=== PATIENT | female | born 1990 | race Caucasian/White ===

== ENCOUNTER → 2016-09-15 | Outpatient (CLI) | payer BC, SELFPAY ==
--- NOTE | 2016-09-15 12:44 | REP ---
FIRST TRIMESTER ULTRASOUND: Real-time sonographic evaluation of the gravid uterus performed utilizing transabdominal and endovaginal technique. There is a single living intrauterine gestation with an estimated gestational age of 6 weeks 2 days based on crown rump length of 5 mm, EDC 05/09/2017. heart rate 103 beats per minute. There is no subchorionic hemorrhage. Cystic structure of the right ovary probably represents a corpus luteum. This measures approximately 1.7 x 2.1 x 2.2 cm. There is blood flow seen in each ovary with duplex Doppler evaluation, with no torsion. Signed by Norm Turk MD 09/15/2016 05:00 P
== END ==
LOC: M RAD 11:32
PROVIDERS: ATTEND Nurse Practitioner Adult Health
DX: Z36 Encounter for antenatal screening of mother (principal)

== ENCOUNTER 2017-03-05 23:02 | Emergency (ER) | payer BC ==
[~2017-03-05] VITALS: Ht 157.5 cm; Wt 64.5 kg
[2017-03-05 23:02] VITALS: BP 139/75
[2017-03-05] MEDS ORDERED: MICR1TAB11 PO (23:10)
== END 2017-03-06 00:13 | disposition left against medical advice (07) ==
LOC: M ED 23:02
DX: R10.9 Unspecified abdominal pain (principal); Z53.21 Procedure and treatment not carried out due to patient leaving prior to being seen by health care provider

== ENCOUNTER → 2017-11-01 | Outpatient (CLI) | payer BC | LOC: M LAB 19:54 | DX: A08.4 Viral intestinal infection, unspecified (principal) ==

== ENCOUNTER → 2017-11-02 | Outpatient (REF) | payer BC | LOC: M LAB REF 08:00 | DX: R10.84 Generalized abdominal pain (principal) | CPT/HCPCS: 87086 ==

== ENCOUNTER → 2018-03-21 | Outpatient (CLI) | payer BC | LOC: M OUTALCOH 08:39 | DX: F10.10 Alcohol abuse, uncomplicated (principal) ==

== ENCOUNTER 2018-03-28 16:00 | Outpatient (RCR) | payer BC | END 2018-04-07 | LOC: M OUTALCOH 16:00 | DX: F10.10 Alcohol abuse, uncomplicated (principal) ==

== ENCOUNTER 2018-04-11 10:00 | Outpatient (RCR) | payer BC | END 2018-05-08 | LOC: M OUTALCOH 04-18 10:00 | DX: F10.10 Alcohol abuse, uncomplicated (principal) ==

== ENCOUNTER 2018-05-16 13:06 | Outpatient (RCR) | payer BC | END 2018-06-07 | LOC: M OUTALCOH 05-23 10:00 | DX: F10.10 Alcohol abuse, uncomplicated (principal) ==

== ENCOUNTER → 2018-07-24 | Outpatient (CLI) | payer BC ==
[~2018-07-24] MED LIST: MICR1TAB11 PO
== END ==
LOC: M OUTALCOH 08:27
PROVIDERS: ATTEND Psychiatry & Neurology Psychiatry
DX: F10.10 Alcohol abuse, uncomplicated (principal)

== ENCOUNTER → 2018-08-08 | Outpatient (RCR) | payer BC | LOC: M OUTALCOH 15:00 | PROVIDERS: ATTEND Psychiatry & Neurology Psychiatry | DX: F10.10 Alcohol abuse, uncomplicated (principal) ==

== ENCOUNTER 2018-09-04 12:54 | Outpatient (RCR) | payer BC | END 2018-09-05 | LOC: M OUTALCOH 12:54 | PROVIDERS: ATTEND Psychiatry & Neurology Psychiatry | DX: F10.10 Alcohol abuse, uncomplicated (principal) ==

== ENCOUNTER 2018-10-02 09:00 | Outpatient (RCR) | payer BC ==
[2018-10-09] MEDS ORDERED: NAPR-50 PO (08:21)
== END 2018-10-06 ==
LOC: M OUTALCOH 09:00
PROVIDERS: ATTEND Psychiatry & Neurology Psychiatry
DX: F10.10 Alcohol abuse, uncomplicated (principal)

== ENCOUNTER 2018-10-09 01:49 | Emergency (ER) | payer BC ==
[~2018-10-09] VITALS: Ht 157.5 cm; Wt 67.3 kg
[2018-10-09] MEDS ORDERED: PAXI10TA12 PO (01:57)
[2018-10-09] MEDS ORDERED: CEFD1CAP8 PO (01:57)
[2018-10-09] MEDS ORDERED: ACETAMINOPHEN TAB 650MG DOSE (2X325MG) PO ONE ×2 (02:00→07:45)
[2018-10-09 02:55] LABS: INFLUENZA A AMPLIFICATION NEGATIVE (NEGATIVE); INFLUENZA B AMPLIFICATION NEGATIVE (NEGATIVE)
[2018-10-09] MEDS ORDERED: NS 1,000 ML IV ONE ×2 (05:15→07:45)
[2018-10-09 06:18] LABS: BASO % 0.2 % (0.0-1.0); EOS % 0.1 % (0.0-3.0); HEMATOCRIT 38.5 % (36.0-47.0); HEMOGLOBIN 13.2 g/dl (12.0-15.5); LYMPH # 0.8 10^3/uL (1.5-4.5); LYMPH % 4.9 % (24.0-44.0); MEAN CORPUSCULAR HEMOGLOBIN 29.7 pg (27.0-33.0); MEAN CORPUSCULAR HGB CONC 34.3 g/dl (32.0-36.5); MEAN CORPUSCULAR VOLUME 86.7 fl (80.0-96.0); MONO # 0.5 10^3/uL (0.0-0.8); NEUTROPHILS # 14.8 10^3/uL (1.8-7.7); NEUTROPHILS % 91.1 % (36.0-66.0); PLATELET COUNT, AUTOMATED 191 10^3/uL (150-450); RED BLOOD COUNT 4.44 10^6/uL (4.00-5.40); WHITE BLOOD COUNT 16.2 10^3/uL (4.0-10.0)
[2018-10-09 06:42] LABS: ALBUMIN 3.9 GM/DL (3.2-5.2); ALT/SGPT 22 U/L (12-78); BILIRUBIN,DIRECT 0.1 MG/DL (0.0-0.2); BILIRUBIN,TOTAL 0.5 MG/DL (0.2-1.0); BLOOD UREA NITROGEN 10 MG/DL (7-18); CALCIUM LEVEL 8.4 MG/DL (8.5-10.1); CARBON DIOXIDE LEVEL 21 MEQ/L (21-32); CHLORIDE LEVEL 107 MEQ/L (98-107); CREATININE FOR GFR 0.92 MG/DL (0.55-1.30); GLOMERULAR FILTRATION RATE > 60.0 (>60); GLUCOSE, FASTING 99 MG/DL (70-100); HCG, SERUM QUALITATIVE NEGATIVE (NEGATIVE); LIPASE 102 U/L (73-393); MONO REFLEX EBV COMP NEGATIVE (NEGATIVE); POTASSIUM SERUM 3.6 MEQ/L (3.5-5.1); SODIUM LEVEL 137 MEQ/L (136-145)
[2018-10-09] MEDS ORDERED: ONDANSETRON 4MG/2ML VIAL (J2405) IV ONE (07:15)
[2018-10-09] MEDS ORDERED: KETOROLAC 30 MG/ML VIAL (J1885) IV ONE (07:15)
--- NOTE | 2018-10-09 07:53 | REP ---
Acute abdominal series: Three views. History: Constipation. Abdomen pain. Chills. Comparison chest x-ray: August 04, 2012. Findings: Upright chest radiograph is normal. There is no evidence of infiltrate or free subdiaphragmatic air. Heart is not enlarged. Pulmonary vasculature is not increased. Supine erect views of the abdomen show a normal bowel gas pattern. Psoas margins and flank stripes are intact. No mass, organomegaly, or pathologic calcification is seen. Impression: Negative abdominal series. Electronically Signed by Joni Keene MD 10/09/2018 07:45 A
[2018-10-09] MEDS ORDERED: ONDA4TAB6 PO (08:21)
[2018-10-09] MEDS ORDERED: NAPR-837 PO (08:21)
[2018-10-09] MEDS ORDERED: MIRA3350 PO (08:23)
[2018-10-09 08:33] VITALS: BP 99/55
[2018-10-11 00:07] LABS: EBV VIRAL CAPSID AG IgG >600.0 U/mL (0.0-17.9); EBV VIRAL CAPSID AG IgM <36.0 U/mL (0.0-35.9); Lyme Disease IgG/IgM Antibodie <0.91 ISR (0.00-0.90); Lyme Disease IgM Ab Quantitati <0.80 index (0.00-0.79)
== END 2018-10-09 08:46 | disposition home or self-care (01) ==
LOC: M ED 01:49
DX: B34.9 Viral infection, unspecified (principal); M79.10 Myalgia, unspecified site; K59.00 Constipation, unspecified; F41.9 Anxiety disorder, unspecified; Z79.899 Other long term (current) drug therapy; Z79.3 Long term (current) use of hormonal contraceptives
CPT/HCPCS: 74021; 80048; 80076; 82550; 83605; 83690; 84703; 85025; 86308; 86617; 86663; 86664; 86665; 87502; 96374; 96375; 99284; J1885; J2405

== ENCOUNTER 2018-10-23 09:30 | Outpatient (RCR) | payer BC ==
[~2018-10-23 09:30] MED LIST changes: +CEFD1CAP8 PO; +MIRA3350 PO; +NAPR-837 PO; +ONDA4TAB6 PO; +PAXI10TA12 PO
== END 2018-11-05 ==
LOC: M OUTALCOH 09:30
PROVIDERS: ATTEND Psychiatry & Neurology Psychiatry
DX: F10.10 Alcohol abuse, uncomplicated (principal)

== ENCOUNTER → 2019-01-13 | Outpatient (CLI) | payer BC ==
[2019-01-13 13:43] LABS: BASO % 0.3 % (0.0-1.0); EOS # 0.1 10^3/uL (0.0-0.50); EOS % 1.2 % (0.0-3.0); HEMATOCRIT 42.6 % (36.0-47.0); HEMOGLOBIN 14.1 g/dl (12.0-15.5); LYMPH # 1.7 10^3/uL (1.5-4.5); LYMPH % 27.9 % (24.0-44.0); MEAN CORPUSCULAR HEMOGLOBIN 30.4 pg (27.0-33.0); MEAN CORPUSCULAR HGB CONC 33.1 g/dl (32.0-36.5); MEAN CORPUSCULAR VOLUME 91.8 fl (80.0-96.0); MONO # 0.6 10^3/uL (0.0-0.8); NEUTROPHILS # 3.6 10^3/uL (1.8-7.7); NEUTROPHILS % 60.3 % (36.0-66.0); PLATELET COUNT, AUTOMATED 242 10^3/uL (150-450); RED BLOOD COUNT 4.64 10^6/uL (4.00-5.40); WHITE BLOOD COUNT 5.9 10^3/uL (4.0-10.0)
[2019-01-13 14:02] LABS: ALBUMIN 3.9 GM/DL (3.2-5.2); ALT/SGPT 32 U/L (12-78); BLOOD UREA NITROGEN 9 MG/DL (7-18); CARBON DIOXIDE LEVEL 23 MEQ/L (21-32); CHLORIDE LEVEL 107 MEQ/L (98-107); CREATININE FOR GFR 0.92 MG/DL (0.55-1.30); FREE T4 1.06 NG/DL (0.76-1.46); GLOMERULAR FILTRATION RATE > 60.0 (>60); GLUCOSE, FASTING 95 MG/DL (70-100); HCG, SERUM QUANTITATIVE < 1.0 MIU/ML; POTASSIUM SERUM 4.8 MEQ/L (3.5-5.1); SODIUM LEVEL 138 MEQ/L (136-145); THYROID STIMULATING HORMONE 0.764 uIU/ML (0.358-3.740); TOTAL PROTEIN 7.6 GM/DL (6.4-8.2)
== END ==
LOC: M WUC 12:23
PROVIDERS: ATTEND Physician Assistant
DX: N94.6 Dysmenorrhea, unspecified (principal)

== ENCOUNTER → 2019-01-13 | Outpatient (REF) | payer BC ==
[2019-01-13 15:35] LABS: CHLAMYDIA DNA AMPLIFICATION NEGATIVE (NEGATIVE); GC DNA AMPLIFICATION NEGATIVE (NEGATIVE)
== END ==
LOC: M LAB REF 13:21
PROVIDERS: ATTEND Physician Assistant
DX: N94.6 Dysmenorrhea, unspecified (principal)

== ENCOUNTER → 2019-03-28 | Outpatient (REF) | payer BC ==
[2019-04-04 00:08] LABS: HPV HYBRID CAPTURE II Positive (Negative)
== END ==
LOC: M SFHCWAGY 10:16
PROVIDERS: ATTEND Family Medicine
DX: Z12.4 Encounter for screening for malignant neoplasm of cervix (principal); R87.610 Atypical squamous cells of undetermined significance on cytologic smear of cervix (ASC-US)

== ENCOUNTER → 2019-06-02 | Outpatient (REF) | payer BC | LOC: M PLALAB 13:33 | PROVIDERS: ATTEND Nurse Practitioner Women's Health | DX: R87.610 Atypical squamous cells of undetermined significance on cytologic smear of cervix (ASC-US) (principal) ==

== ENCOUNTER → 2019-10-11 | Outpatient (CLI) | payer BC | LOC: M LABSMTC 11:50 | PROVIDERS: ATTEND Family Medicine | DX: Z11.59 Encounter for screening for other viral diseases (principal); Z20.828 Contact with and (suspected) exposure to other viral communicable diseases ==

== ENCOUNTER → 2019-11-07 | Outpatient (CLI) | payer BC | LOC: M LABSMTC 13:13 | PROVIDERS: ATTEND Family Medicine | DX: Z11.59 Encounter for screening for other viral diseases (principal); Z20.828 Contact with and (suspected) exposure to other viral communicable diseases ==

== ENCOUNTER 2019-11-17 00:36 | Emergency (ER) | payer BC ==
[~2019-11-17] VITALS: Ht 157.5 cm; Wt 70.5 kg
[2019-11-17] MEDS ORDERED: MICR1TAB18 (00:44)
[2019-11-17] MEDS ORDERED: ONDANSETRON 4 MG ORAL DISINTEGRATING TAB PO ONE (01:30)
[2019-11-17] MEDS ORDERED: ONDA4TAB6 PO (02:02)
--- NOTE | 2019-11-17 02:30 | REPVR ---
PROCEDURE INFORMATION: Exam: CT Head Without Contrast Exam date and time: 11/17/19 (1:57am) Age: 29 years old Clinical indication: Headache, vomiting, dizziness. Hit head. TECHNIQUE: Imaging protocol: Computed tomography of the head without contrast. Radiation optimization: All CT scans at this facility use at least one of these dose optimization techniques: automated exposure control; mA and/or kV adjustment per patient size (includes targeted exams where dose is matched to clinical indication); or iterative reconstruction. COMPARISON: No relevant prior studies available FINDINGS: Brain: Unremarkable. No hemorrhage. Unremarkable white matter. No mass effect. Ventricles: Normal. No ventriculomegaly. Bones/joints: Unremarkable. No acute fracture. Sinuses: Visualized sinuses are unremarkable. No air-fluid levels. Mastoid air cells: Visualized mastoid air cells are well aerated. Soft tissues: Unremarkable. IMPRESSION: No acute intracranial pathology is appreciated. Electronically signed by: Cookie Serrano On 11/17/2019 02:30:09 AM
[2019-11-17 03:08] VITALS: BP 119/79
== END 2019-11-17 03:10 | disposition home or self-care (01) ==
LOC: M ED 00:36
DX: S06.0X0A Concussion without loss of consciousness, initial encounter (principal); W50.0XXA Accidental hit or strike by another person, initial encounter; Y92.018 Other place in single-family (private) house as the place of occurrence of the external cause; Z79.899 Other long term (current) drug therapy; Z79.3 Long term (current) use of hormonal contraceptives
CPT/HCPCS: 36415; 70450; 84702; 99283; Q0162

== ENCOUNTER → 2020-04-24 | Outpatient (CLI) | payer BC ==
[~2020-04-24] MED LIST changes: +MICR1TAB18
== END ==
LOC: M LABSMTC 11:12
PROVIDERS: ATTEND Pediatrics
DX: Z01.812 Encounter for preprocedural laboratory examination (principal); Z20.828 Contact with and (suspected) exposure to other viral communicable diseases

== ENCOUNTER → 2020-06-15 | Outpatient (CLI) | payer SELFPAY | LOC: EEVIPCON 16:10 → M LABSMTC 16:10 | PROVIDERS: ATTEND Pediatrics | DX: Z11.59 Encounter for screening for other viral diseases (principal) ==

== ENCOUNTER → 2020-07-20 | Outpatient (REF) | payer BC | LOC: M SFHCWAGY 17:19 | PROVIDERS: ATTEND Nurse Practitioner Family | DX: Z12.4 Encounter for screening for malignant neoplasm of cervix (principal) ==

== ENCOUNTER → 2020-07-28 | Outpatient (REF) | payer BC ==
[2020-07-28 18:00] LABS: HEMATOCRIT 41.1 % (36.0-47.0); HEMOGLOBIN 13.5 g/dl (12.0-15.5); MEAN CORPUSCULAR HEMOGLOBIN 29.7 pg (27.0-33.0); MEAN CORPUSCULAR HGB CONC 32.8 g/dl (32.0-36.5); MEAN CORPUSCULAR VOLUME 90.3 fl (80.0-96.0); PLATELET COUNT, AUTOMATED 301 10^3/uL (150-450); RED BLOOD COUNT 4.55 10^6/uL (4.00-5.40); WHITE BLOOD COUNT 7.9 10^3/uL (4.0-10.0)
[2020-07-28 18:37] LABS: ALBUMIN 3.8 GM/DL (3.2-5.2); ALT/SGPT 29 U/L (12-78); BILIRUBIN,TOTAL 0.2 MG/DL (0.2-1.0); BLOOD UREA NITROGEN 10 MG/DL (7-18); CALCIUM LEVEL 8.8 MG/DL (8.5-10.1); CARBON DIOXIDE LEVEL 29 MEQ/L (21-32); CHLORIDE LEVEL 106 MEQ/L (98-107); CREATININE FOR GFR 0.86 MG/DL (0.55-1.30); FREE T4 0.97 NG/DL (0.76-1.46); GLOMERULAR FILTRATION RATE > 60.0 (>60); GLUCOSE, FASTING 77 MG/DL (70-100); POTASSIUM SERUM 4.2 MEQ/L (3.5-5.1); SODIUM LEVEL 137 MEQ/L (136-145); THYROID STIMULATING HORMONE 0.996 uIU/ML (0.358-3.740); TOTAL PROTEIN 7.2 GM/DL (6.4-8.2)
[2020-07-28 19:11] LABS: ERYTHROCYTE SEDIMENTATION RATE 7 mm/hr (0-20)
== END ==
LOC: M SFHCADAM 15:01
PROVIDERS: ATTEND Physician Assistant
DX: R51.9 Headache, unspecified (principal)

== ENCOUNTER → 2020-09-06 | Outpatient (REF) | payer BC | LOC: M SFHCWAGY 13:08 | PROVIDERS: ATTEND Nurse Practitioner Women's Health | DX: R87.810 Cervical 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 (HPV) DNA 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 (principal); R87.610 Atypical squamous cells of undetermined significance on cytologic smear of cervix (ASC-US) ==

== ENCOUNTER → 2020-09-10 | Outpatient (REF) | LOC: M LABSMTC 11:26 | PROVIDERS: ATTEND Pediatrics | DX: Z11.52 Encounter for screening for COVID-19 (principal) ==

== ENCOUNTER → 2020-09-10 | Outpatient (REF) | LOC: M LABSMTC 10:58 | PROVIDERS: ATTEND Pediatrics | DX: Z11.52 Encounter for screening for COVID-19 (principal) ==

== ENCOUNTER → 2020-09-24 | Outpatient (CLI) | payer BC ==
--- NOTE | 2020-09-24 17:58 | REP ---
INDICATION: LOW BACK PAIN. COMPARISON: None. TECHNIQUE: Five views. FINDINGS: Lumbar vertebral body heights are preserved. Alignment is normal. Disc spaces are maintained. Pedicles and posterior elements are intact. There is no evidence of spondylolysis or spondylolisthesis. Facet joints are normally aligned. Sacrum and SI joints are unremarkable. Psoas margins are symmetric. IMPRESSION: Normal lumbar spine series. <Electronically signed by Coleman Keene > 09/24/20 [id number]
== END ==
LOC: M ADAMS 10:55
PROVIDERS: ATTEND Physician Assistant
DX: M54.5 Low back pain (principal)

== ENCOUNTER → 2021-02-12 | Outpatient (REF) | LOC: M LABSMTC 10:35 | PROVIDERS: ATTEND Pediatrics | DX: Z11.52 Encounter for screening for COVID-19 (principal) ==

== ENCOUNTER 2021-06-19 22:36 | Observation (INO) | payer BC, OTHER ==
[~2021-06-19] VITALS: Ht 157.5 cm; Wt 80.8 kg
[~2021-06-19 22:36] MED LIST changes: -MICR1TAB18; +MICR1TAB18 PO
--- OUTSIDE RECORDS SUMMARY | 2021-06-19 22:41 | CCD ---
Author Author [facility] Organization [facility] Address Unknown Phone Unavailable Care Team Providers Care Coding Compliance Auditor Name Role Phone Andra Reilly Unavailable PROBLEMS Type Condition ICD9-CM Code [id number] Code Onset Dates Condition S tatus W/U Status Risk SNOMED Code Notes Problem Breakthrough bleeding on control pills N92.1 Active confirmed 61493480 Problem Other chronic pain G89.29 Active confirmed 8 8790497 Problem Anxiety, generalized F41.1 Active confirmed 11825679 Problem DUB (dysfunctional uterine bleeding) N93.8 Act katie confirmed 24493100 Problem Cervical 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 (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 R87.810 Active confirmed 587654857 Problem Dysplasia of cervix, low grade (RICK 1) N87.0 A ctive confirmed [id number] ALLERGIES No Known Allergies ENCOUNTERS from 1988 to 2021-05-25 Encounter Location Date Provider Diagnosis [address] [place] [address] 15 May, 2021 Andra Reilly Anxiety, generalized F41.1 IMMUNIZATIONS No Information SOCIAL HISTORY Tobacco Use: Social History Observation Description Date Details (start date - stop date) Never Smoker Sex Assigned At : Social History Observation Description Sex Assigned At Male Education: Question Answer Notes Level of Education: College Audit Question Answer Notes Total Score: 2 Interpretation: Alcohol Education Language: Question Answer Notes Languages spoken: Norwegian Scientologist: Question Answer Notes Scientologist 33 None Domestic Violence: Question Answer Notes Status: Single Sexual Hx: Question Answer Notes Had sex in the last 12 months (vaginal, oral, or anal)? Yes LMP: b/s Have you ever had an STD? Yes with Men only Use protection? Yes Chlamydia? Yes How often? Some of the time Drug and Alcohol Question Answer Notes Total Score: 0 Interpretation: No problems reported Alcohol Screening: Question Answer Notes Did you have a drink containing alcohol in the past year? Ye s Points 3 Interpretation Positive How often did you have six or more drinks on one occas ion in the past year? Less than monthly (1 point) How many drinks did you have on a typica l day when you were drinking in the past year? 1 or 2 (0 points) How often did you have a drink containing alcohol in t he past year? Two to four times a month (2 points) Tobacco Use: Question Answer Notes Are you a: never smoker never smoker REASON FOR REFERRAL No Information VITAL SIGNS No information MEDICATIONS Medication SIG (Take, Route, Frequency, Duration) Notes Start Da te End Date Status busPIRone HCl 10 MG 1 tablet Orally Twice a day for 30 days Feb, Active valACYclovir HCl 1 GM 2 tablets Orally BID for 1 day(s) Active Zofran 4 MG 1 tablet Orally every 8 hours as needed for donte sea for 5 days Jul, Active Ketorolac Tromethamine 10 MG 1 tablet with food or mil k as needed Orally every 6 hrs as needed for 2 days Jul, Active Terbinafine HCl 1 % 1 application to affected ar ea Externally Twice a day to rash on shins for 30 days Apr, Active Paxil 20 MG 1 tablet in the morning Orally Once a day for 90 days Feb, Active PARoxetine HCl 10 TAKE 1 TABLET BY MOUTH EVERY MORNING Orally Once a day for 90 day(s) Active Microgestin /20 1-20 MG-MCG 1 tablet Orally Once a da y for continous usage for 90 days Mar, Active Clobetasol Propionate 0.05 % 1 application Externally Twice a day for 10 day(s) Aug, Active PROCEDURES No Information RESULTS No Results REASON FOR VISIT refill MEDICAL (GENERAL) HISTORY Type Description Date Medical History Anxiety Surgical History colposcopy with Mei 06/02/2019 Goals Section No Information Health Concerns No Information MEDICAL EQUIPMENT No Information MENTAL STATUS No Information FUNCTIONAL STATUS No Information ASSESSMENTS Encounter Date Diagnosis Assessment Notes Treatment Notes Treatm ent Clinical Notes May, Anxiety, generalized (ICD-10 - F41.1) PLAN OF TREATMENT Medication Medication Name Sig Start Date Stop Date busPIRone HCl 10 MG 1 tablet Orally Twice a day for 30 days 2020 PARoxetine HCl 10 TAKE 1 TABLET BY MOUTH EVERY MORNING Orally Once a day for 90 day(s) Microgestin 1/20 1-20 MG-MCG 1 tablet Orally Once a da y for continous usage for 90 days Mar, Paxil 20 MG 1 tablet in the morning Orally Once a day for 90 days Feb, Next Appt Details Provider Name:Mei De Andajac, 2021-06-13 04:00:00 PM, [address] [facility], , [place], [address], Insurance Providers Payer Name Payer Address Payer Phone Insured Name Patient Relati onship to Insured Coverage Start Date Coverage End Date SANDRO/Reina BAUM [address] [facility] [address] Lien UREÑA self
--- OUTSIDE RECORDS SUMMARY | 2021-06-19 22:41 | CCD ---
Author Author [facility] Organization [facility] Address Unknown Phone Unavailable Care Team Providers Care Supervisor Photoengraving Name Role Phone Andra Reilly Unavailable PROBLEMS Type Condition ICD9-CM Code [id number] Code Onset Dates Condition S tatus W/U Status Risk SNOMED Code Notes Problem Breakthrough bleeding on control pills N92.1 Active confirmed 92309591 Problem Other chronic pain G89.29 Active confirmed 8 7304869 Problem Anxiety, generalized F41.1 Active confirmed 86528668 Problem DUB (dysfunctional uterine bleeding) N93.8 Act katie confirmed 97744069 Problem Cervical 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 (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 R87.810 Active confirmed 228422262 Problem Dysplasia of cervix, low grade (RICK 1) N87.0 A ctive confirmed 240443648 ALLERGIES No Known Allergies ENCOUNTERS from 1988 to 2021-05-03 Encounter Location Date Provider Diagnosis [address] [place] [address] Apr, Andra Reilly IMMUNIZATIONS No Information SOCIAL HISTORY Tobacco Use: Social History Observation Description Date Details (start date - stop date) Never Smoker Sex Assigned At : Social History Observation Description Sex Assigned At Male Education: Question Answer Notes Level of Education: College Audit Question Answer Notes Total Score: 2 Interpretation: Alcohol Education Language: Question Answer Notes Languages spoken: Nicaraguan Mormonism: Question Answer Notes Mormonism 33 None Domestic Violence: Question Answer Notes [...] Notes Start Da te End Date Status Microgestin 1/20 1-20 MG-MCG 1 tablet Orally Once a da y for continous usage for 90 days Mar, Active valACYclovir HCl 1 GM 2 tablets Orally BID for 1 day(s) Active PARoxetine HCl 10 TAKE 1 TABLET BY MOUTH EVERY MORNING Orally Once a day for 90 day(s) Active busPIRone HCl 10 MG 1 tablet Orally Twice a day for 30 days Feb, Active Terbinafine HCl 1 % 1 application to affected ar ea Externally Twice a day to rash on shins for 30 days Apr, Active Ketorolac Tromethamine 10 MG 1 tablet with food or mil k as needed Orally every 6 hrs as needed for 2 days Jul, Active Paxil 20 MG 1 tablet in the morning Orally Once a day for 90 days Feb, Active Zofran 4 MG 1 tablet Orally every 8 hours as needed for donte sea for 5 days Jul, Active Clobetasol Propionate 0.05 % 1 application Externally Twice a day for 10 day(s) Aug, Active PROCEDURES No Information RESULTS No Results REASON FOR VISIT refill MEDICAL (GENERAL) HISTORY Type Description Date Medical History Anxiety Surgical History colposcopy with Mei 06/02/2019 Goals Section No Information Health Concerns No Information MEDICAL EQUIPMENT No Information MENTAL STATUS No Information FUNCTIONAL STATUS No Information ASSESSMENTS No Information PLAN OF TREATMENT Medication Medication Name Sig Start Date Stop Date Microgestin 1/20 1-20 MG-MCG 1 tablet Orally Once a da y for continous usage for 90 days Mar, Paxil 20 MG 1 tablet in the morning Orally Once a day for 90 days Feb, PARoxetine HCl 10 TAKE 1 TABLET BY MOUTH EVERY MORNING Orally Once a day for 90 day(s) busPIRone HCl 10 MG 1 tablet Orally Twice a day for 30 days 2020 Next Appt Details Provider Name:Mei Mock, 2021-06-13 04:00:00 PM, [address] [facility], , [place], [address], Insurance Providers Payer Name Payer Address Payer Phone Insured Name Patient Relati onship to Insured Coverage Start Date Coverage End Date BC/SARIKA, [employer] [address] [address] iLen WIGGINS self
--- OUTSIDE RECORDS SUMMARY | 2021-06-19 22:41 | CCD ---
Author Author [facility] Organization [facility] Address Unknown Phone Unavailable Care Team Providers Care Case Folder Name Role Phone Andra Reilly Unavailable PROBLEMS Type Condition ICD9-CM Code [id number] Code Onset Dates Condition S tatus W/U Status Risk SNOMED Code Notes Problem Breakthrough bleeding on control pills N92.1 Active confirmed 05322460 Problem Other chronic pain G89.29 Active confirmed 8 6674622 Problem Anxiety, generalized F41.1 Active confirmed 46178259 Problem DUB (dysfunctional uterine bleeding) N93.8 Act katie confirmed 06122937 Problem Cervical 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 (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 R87.810 Active confirmed 427234829 Problem Dysplasia of cervix, low grade (RICK 1) N87.0 A ctive confirmed 518364803 ALLERGIES No Known Allergies ENCOUNTERS from 1988 to 2021-05-03 Encounter Location Date Provider Diagnosis [address] [phone] [place] [address] Apr, Andra Reilly IMMUNIZATIONS No Information SOCIAL HISTORY Tobacco Use: Social History Observation Description Date Details (start date - stop date) Never Smoker Sex Assigned At : Social History Observation Description Sex Assigned At Male Education: Question Answer Notes Level of Education: College Audit Question Answer Notes Total Score: 2 Interpretation: Alcohol Education Language: Question Answer Notes Languages spoken: Uzbek Catholic: Question Answer Notes Catholic 33 None Domestic Violence: Question Answer Notes [...] Information RESULTS No Results REASON FOR VISIT no show MEDICAL (GENERAL) HISTORY Type Description Date Medical [...] Details Provider Name:Mei Mock, 2021-06-13 04:00:00 PM, [address] [place] [address], , [place], [address], Insurance Providers Payer Name Payer Address Payer Phone Insured Name Patient Relati onship to Insured Coverage Start Date Coverage End Date BC/BS, [employer] [address] [address] Lien WIGGINS
--- OUTSIDE RECORDS SUMMARY | 2021-06-19 22:41 | CCD ---
Author Author [facility] Organization [facility] Address Unknown Phone Unavailable Care Team Providers Care Corporate Statistical Financial Analyst Name Role Phone Andra Reilly Unavailable PROBLEMS Type Condition ICD9-CM Code KSR29-NW Code Onset Dates Condition S tatus W/U Status Risk SNOMED Code Notes Problem Breakthrough bleeding on control pills N92.1 Active confirmed 55347038 Problem Other chronic pain G89.29 Active confirmed 8 3796291 Problem Anxiety, generalized F41.1 Active confirmed 39128843 Problem DUB (dysfunctional uterine bleeding) N93.8 Act katie confirmed 48426240 Problem Cervical 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 (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 R87.810 Active confirmed 855232236 Problem Dysplasia of cervix, low grade (RICK 1) N87.0 A ctive confirmed 985931353 ALLERGIES No Known Allergies ENCOUNTERS from 1988 to 2021-03-23 Encounter Location Date Provider Diagnosis [address] [place] [address] Mar, Andra Reilly Anxiety, generalized F41.1 IMMUNIZATIONS No Information SOCIAL HISTORY Tobacco Use: Social History Observation Description Date Details (start date - stop date) Never Smoker Sex Assigned At : Social History Observation Description Sex Assigned At Male Education: Question Answer Notes Level of Education: College Audit Question Answer Notes Total Score: 2 Interpretation: Alcohol Education Language: Question Answer Notes Languages spoken: Chilean Cheondoism: Question Answer Notes Cheondoism 33 None Domestic Violence: Question Answer Notes [...] tablets Orally BID for 1 day(s) Active busPIRone HCl 10 MG 1 tablet Orally Twice a day for 30 days Feb, Active Zofran 4 MG 1 tablet Orally every 8 hours as needed for donte sea for 5 days Jul, Active Terbinafine HCl 1 % [...] Once a day for 90 day(s) Active Clobetasol Propionate 0.05 % 1 application [...] Notes Treatment Notes Treatm ent Clinical Notes Mar, Anxiety, generalized (ICD-10 - F41.1) PLAN OF TREATMENT Medication Medication Name Sig Start Date Stop Date Microgestin 1/20 1-20 MG-MCG 1 tablet Orally Once a da y for continous usage for 90 days Mar, Paxil 20 MG 1 tablet in the morning Orally Once a day for 90 days Feb, busPIRone HCl 10 MG 1 tablet Orally Twice a day for 30 days 2020 PARoxetine HCl 10 TAKE 1 TABLET BY MOUTH EVERY MORNING Orally Once a day for 90 day(s) Insurance Providers Payer Name Payer Address Payer Phone Insured Name Patient Relati onship to Insured Coverage Start Date Coverage End Date SANDRO/SARIKA, Reina [address] [address] Lien WIGGINS self
--- OUTSIDE RECORDS SUMMARY | 2021-06-19 22:41 | CCD ---
Author Author [facility] Organization [facility] Address Unknown Phone Unavailable Care Team Providers Care Vp Product Name Role Phone Andra Reilly Unavailable PROBLEMS Type Condition ICD9-CM Code RPA25-SC Code Onset Dates Condition S tatus W/U Status Risk SNOMED Code Notes Problem Breakthrough bleeding on control pills N92.1 Active confirmed 41418419 Problem Other chronic pain G89.29 Active confirmed 8 0764296 Problem Anxiety, generalized F41.1 Active confirmed 73003653 Problem DUB (dysfunctional uterine bleeding) N93.8 Act katie confirmed 86388130 Problem Cervical 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 (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 R87.810 Active confirmed 255880771 Problem Dysplasia of cervix, low grade (RICK 1) N87.0 A ctive confirmed 937187155 ALLERGIES No Known Allergies ENCOUNTERS from 1988 to 2021-05-03 Encounter Location Date Provider Diagnosis [address] [place] [address] Apr, Andra Reilly IMMUNIZATIONS No Information SOCIAL HISTORY Tobacco Use: Social History Observation Description Date Details (start date - stop date) Never Smoker Sex Assigned At : Social History Observation Description Sex Assigned At Male Education: Question Answer Notes Level of Education: College Audit Question Answer Notes Total Score: 2 Interpretation: Alcohol Education Language: Question Answer Notes Languages spoken: Palauan Christianity: Question Answer Notes Christianity 33 None Domestic Violence: Question Answer Notes [...] Information RESULTS No Results REASON FOR VISIT need apt MEDICAL (GENERAL) HISTORY Type Description Date Medical [...] Orally Once a day for 90 day(s) Next Appt Details Provider Name:Scar Arsalan Silva, 2021-05-03 10:45:00 AM, [address] [facility], , [place], [address], Provider Name:Mei Mock, 2021-06-13 04:00:00 PM, [address] [facility], , [place], [address], Insurance Providers Payer Name Payer Address Payer Phone Insured Name Patient Relati onship to Insured Coverage Start Date Coverage End Date BC/BS, [employer] [address] [id number] Lien UREÑA
--- OUTSIDE RECORDS SUMMARY | 2021-06-19 22:41 | CCD ---
Author Author [facility] Organization [facility] Address Unknown Phone Unavailable Care Team Providers Care In School Suspension Aide Name Role Phone Mi Knowles Unavailable PROBLEMS Type Condition ICD9-CM Code [id number] Code Onset Dates Condition S tatus W/U Status Risk SNOMED Code Notes Problem Breakthrough bleeding on control pills N92.1 Active confirmed 41267755 Problem Other chronic pain G89.29 Active confirmed 8 4507628 Problem Anxiety, generalized F41.1 Active confirmed 99526278 Problem DUB (dysfunctional uterine bleeding) N93.8 Act katie confirmed 60523742 Problem Cervical 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 (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 R87.810 Active confirmed 536447727 Problem Dysplasia of cervix, low grade (RICK 1) N87.0 A ctive confirmed 495527795 ALLERGIES No Known Allergies ENCOUNTERS from 1988 to 2021-06-17 Encounter Location Date Provider Diagnosis [facility] [address] [place] [phone] [place] [address] Jun, Mi Knowles Surveillance for bir th control, oral contraceptives Z30.41 IMMUNIZATIONS No Information SOCIAL HISTORY Tobacco Use: Social History Observation Description Date Details (start date - stop date) Never Smoker Sex Assigned At : Social History Observation Description Sex Assigned At Male Education: Question Answer Notes Level of Education: College Audit Question Answer Notes Total Score: 2 Interpretation: Alcohol Education Language: Question Answer Notes Languages spoken: Spanish Tenriism: Question Answer Notes Tenriism 33 None Domestic Violence: Question Answer Notes [...] on shins for 30 days Apr, Active Microgestin 1/20 1-20 MG-MCG 1 tablet Orally Once a day Jun, Active Zofran 4 MG 1 tablet Orally every 8 hours as needed for donte sea for 5 days Jul, Active Ketorolac Tromethamine 10 MG 1 tablet with food or mil k as needed Orally every 6 hrs as needed for 2 days Jul, Active Clobetasol Propionate 0.05 % 1 application Externally Twice a day for 10 day(s) Aug, Active Paxil 20 MG 1 tablet in the morning Orally Once a day for 90 days Feb, Active PARoxetine HCl 10 TAKE 1 TABLET BY MOUTH EVERY MORNING Orally Once a day for 90 day(s) Active Microgestin 1/20 1-20 MG-MCG 1 tablet Orally Once a da y for continous usage for 90 days Mar, Active valACYclovir HCl 1 GM 2 tablets Orally BID for 1 day(s) Active PROCEDURES No Information RESULTS No Results REASON FOR VISIT BC refill MEDICAL (GENERAL) HISTORY Type Description Date Medical History Anxiety Surgical History colposcopy with Mei 06/02/2019 Goals Section No Information Health Concerns No Information MEDICAL EQUIPMENT No Information MENTAL STATUS No Information FUNCTIONAL STATUS No Information ASSESSMENTS Encounter Date Diagnosis Assessment Notes Treatment Notes Treatm ent Clinical Notes Jun, Surveillance for contr ol, oral contraceptives (ICD-10 - Z30.41) PLAN OF TREATMENT Medication Medication Name Sig [...] Once a day for 90 days Feb, Microgestin 1/20 1-20 MG-MCG 1 tablet Orally Once a day Jun, valACYclovir HCl 1 GM 2 tablets Orally BID for 1 day(s) Next Appt Details Provider Name:Mi Rodolfo Knowles, 2021-07-29 10:00:00 AM, [address] [facility], , [place], [address], Insurance Providers Payer Name Payer Address Payer Phone Insured Name Patient Relati onship to Insured Coverage Start Date Coverage End Date Subscriber Number Group Nu sheila BC/BS, [employer] [address] [address] Lien WIGGINS [facility] [id number]
--- OUTSIDE RECORDS SUMMARY | 2021-06-19 22:41 | CCD ---
Author Author [facility] Organization [facility] Address Unknown Phone Unavailable Care Team Providers Care Painter Maintenance Name Role Phone Melba Andra Unavailable PROBLEMS Type Condition ICD9-CM Code DAD72-UT Code Onset Dates Condition S tatus W/U Status Risk SNOMED Code Notes Problem Breakthrough bleeding on control pills N92.1 Active confirmed 89686187 Problem Other chronic pain G89.29 Active confirmed 8 1717214 Problem Anxiety, generalized F41.1 Active confirmed 12816898 Problem DUB (dysfunctional uterine bleeding) N93.8 Act katie confirmed 19758280 Problem Cervical 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 (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 R87.810 Active confirmed 029822479 Problem Dysplasia of cervix, low grade (RICK 1) N87.0 A ctive confirmed 650863172 ALLERGIES No Known Allergies ENCOUNTERS from 1988 to 2021-06-10 Encounter Location Date Provider Diagnosis [address] [place] [address] Jun, Andra Reilly Herpes labialis B00.1 IMMUNIZATIONS No Information SOCIAL HISTORY Tobacco Use: Social History Observation Description Date Details (start date - stop date) Never Smoker Sex Assigned At : Social History Observation Description Sex Assigned At Male Education: Question Answer Notes Level of Education: College Audit Question Answer Notes Total Score: 2 Interpretation: Alcohol Education Language: Question Answer Notes Languages spoken: Latvian Cheondoism: Question Answer Notes Cheondoism 33 None [...] on shins for 30 days Apr, Active Zofran 4 MG 1 tablet Orally [...] Information RESULTS No Results REASON FOR VISIT Refill MEDICAL (GENERAL) HISTORY Type Description Date Medical History Anxiety Surgical History colposcopy with Mei 06/02/2019 Goals Section No Information Health Concerns No Information MEDICAL EQUIPMENT No Information MENTAL STATUS No Information FUNCTIONAL STATUS No Information ASSESSMENTS Encounter Date Diagnosis Assessment Notes Treatment Notes Treatm ent Clinical Notes Jun, Herpes labialis (ICD-10 - B00.1) PLAN OF TREATMENT Medication Medication Name Sig [...] Once a day for 90 days Feb, valACYclovir HCl 1 GM 2 tablets Orally BID for 1 day(s) Next Appt Details Provider Name:Mi Knowles, 2021-07-29 10:00:00 AM, [address] [facility], , [place], [address], Insurance Providers Payer Name Payer Address Payer Phone Insured Name Patient Relati onship to Insured Coverage Start Date Coverage End Date SNADRO/SARIKA, [employer] [address] [address] Lien WIGGINS self
--- OUTSIDE RECORDS SUMMARY | 2021-06-19 22:41 | CCD ---
Author Author [facility] Organization [facility] Address Unknown Phone Unavailable Care Team Providers Care Roster Clerk Name Role Phone Andra Reilly Unavailable PROBLEMS Type Condition ICD9-CM Code [id number] Code Onset Dates Condition S tatus W/U Status Risk SNOMED Code Notes Problem Breakthrough bleeding on control pills N92.1 Active confirmed 44727561 Problem Other chronic pain G89.29 Active confirmed 8 0826074 Problem Anxiety, generalized F41.1 Active confirmed 80825835 Problem DUB (dysfunctional uterine bleeding) N93.8 Act katie confirmed 78331792 Problem Cervical 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 (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.810 Active confirmed 730641965 Problem Dysplasia of cervix, low grade (RICK 1) N87.0 A ctive confirmed [id number] ALLERGIES No Known Allergies ENCOUNTERS from 1988 to 2021-05-25 Encounter Location Date Provider Diagnosis [address] [place] [address] 15 May, 2021 Andra Reilly IMMUNIZATIONS No Information SOCIAL HISTORY Tobacco Use: Social History Observation Description Date Details (start date - stop date) Never Smoker Sex Assigned At : Social History Observation Description Sex Assigned At Male Education: Question Answer Notes Level of Education: College Audit Question Answer Notes Total Score: 2 Interpretation: Alcohol Education Language: Question Answer Notes Languages spoken: Ethiopian Catholic: Question Answer Notes Catholic 31 None [...] RESULTS No Results REASON FOR VISIT no energy MEDICAL (GENERAL) HISTORY Type Description Date Medical [...] days Feb, Next Appt Details Provider Name:Mei Mock, 2021-06-13 04:00:00 PM, [address] [facility], , [place], [address], Insurance Providers Payer Name Payer Address Payer Phone Insured Name Patient Relati onship to Insured Coverage Start Date Coverage End Date BC/BS, [employer] [address] [id number] Lien WIGGINS self
--- OUTSIDE RECORDS SUMMARY | 2021-06-19 22:41 | CCD ---
Author Author [facility] Organization [facility] Address Unknown Phone Unavailable Support Name Relationship Address [place] [address] [address] FELIZ UREÑA Next Of Kin [phone] [place] [address] SMC* Next Of Kin [address] [place] [address] DPAO Next Of Kin [address] [place] [address] CRACKER [place] [address] HENNY BECERRA Next Of Kin [phone] [place] [address] CRACKER Next Of Kin [address] [place] [address] uma [facility] [place] Next Of Kin [place] [phone] HENNY GARCIA Next Of Kin [address] [place] [address] SPOKES Next Of Kin [address] [place] [address] OLIVEGARDE Next Of Kin [address] [place] [phone] VERIZON Next Of Kin [address] [place] [address] Unavailable BEST [place] [address] ST Next Of Kin Unknown Unavailable JOURNEY'S [place] [address] INDIRA MOLINA Next Of Kin [address] [place] [address] [address] [place] [address] HENNY UREÑA Next Of Kin [address] [place] [address] [address] [place] [address] feliz ureña ECON Unknown Unavailable Henny Becerra ECON [address] [facility] [place] [address] Unavailable Care Team Providers Care Special Event Assistant Name Role Phone LETTIERE, A SONG PA Unavailable Unavailable LETTIERE, A SONG PA Unavailable Unavailable LETTIERE, A SONG PA Unavailable Unavailable LETTIERE, A SONG PA Unavailable Unavailable LETTIERE, A SONG PA Unavailable Unavailable LETTIERE, A SONG PA Unavailable Unavailable LETTIERE, A SONG PA Unavailable Unavailable LETTIERE, A SONG PA Unavailable Unavailable LETTIERE, A SONG PA Unavailable Unavailable LETTIERE, A SONG PA Unavailable Unavailable LETTIERE, A SONG PA Unavailable Unavailable LETTIERE, A SONG PA Unavailable Unavailable LETTIERE, A SONG PA Unavailable Unavailable LETTIERE, A SONG PA Unavailable Unavailable LETTIERE, A SONG PA Unavailable Unavailable LETTIERE, A SONG PA Unavailable Unavailable LETTIERE, A SONG PA Unavailable Unavailable LETTIERE, A SONG PA Unavailable Unavailable LETTIERE, A SONG PA Unavailable Unavailable LETTIERE, A SONG PA Unavailable Unavailable LETTIERE, A SONG PA Unavailable Unavailable LETTIERE, A SONG PA Unavailable Unavailable LETTIERE, A SONG PA Unavailable Unavailable LETTIERE, A SONG PA Unavailable Unavailable LETTIERE, A SONG PA Unavailable Unavailable LETTIERE, A SONG PA Unavailable Unavailable LETTIERE, A SONG PA Unavailable Unavailable LETTIERE, A SONG PA Unavailable Unavailable LETTIERE, A SONG PA Unavailable Unavailable LETTIERE, A SONG PA Unavailable Unavailable LETTIERE, A SONG PA Unavailable Unavailable Green LENS HARDENER LENS HARDENER, Lexie Unavailable Unavailable Green LENS HARDENER LENS HARDENER, Lexie Unavailable Unavailable Green LENS HARDENER LENS HARDENER, Lexie Unavailable Unavailable Green LENS HARDENER LENS HARDENER, Lexie Unavailable Unavailable Green LENS HARDENER LENS HARDENER, Lexie Unavailable Unavailable Mosley, Nedra Reidn PA Unavailable Unavailable Mosley, Nedra Reidn PA Unavailable Unavailable Mosley, Nedra Henderson PA Unavailable Unavailable Mosley, Nedra Reidn PA Unavailable Unavailable Mosley, Nedra Reidn PA Unavailable Unavailable Mosley, Nedra Reidn PA Unavailable Unavailable Mosley, Nedra Reidn PA Unavailable Unavailable Mosley, Nedra BanuelosBeatriz PA Unavailable Unavailable Mosley, Nedra Reidn PA Unavailable Unavailable Mosley, Nedra Beatriz PA Unavailable Unavailable MCKEON, G EDWARD RPA Unavailable Unavailable MCKEON, G EDWARD RPA Unavailable Unavailable MCKEON, G EDWARD RPA Unavailable Unavailable MCKEON, G EDWARD RPA Unavailable Unavailable MCKEON, G EDWARD RPA Unavailable Unavailable MCKEON, G EDWARD RPA Unavailable Unavailable MCKEON, G EDWARD RPA Unavailable Unavailable MCKEON, G EDWARD RPA Unavailable Unavailable MCKEON, G EDWARD RPA Unavailable Unavailable MCKEON, G EDWARD RPA Unavailable Unavailable MCKEON, G EDWARD RPA Unavailable Unavailable MCKEON, G EDWARD RPA Unavailable Unavailable MCKEON, G EDWARD RPA Unavailable Unavailable MCKEON, G EDWARD RPA Unavailable Unavailable MCKEON, G EDWARD RPA Unavailable Unavailable MCKEON, G EDWARD RPA Unavailable Unavailable MCKEON, G EDWARD RPA Unavailable Unavailable MCKEON, G EDWARD RPA Unavailable Unavailable MCKEON, G EDWARD RPA Unavailable Unavailable MCKEON, G EDWARD RPA Unavailable Unavailable MCKEON, G EDWARD RPA Unavailable Unavailable MCKEON, G EDWARD RPA Unavailable Unavailable MCKEON, G EDWARD RPA Unavailable Unavailable MCKEON, G EDWARD RPA Unavailable Unavailable MCKEON, G EDWARD RPA Unavailable Unavailable MCKEON, G EDWARD RPA Unavailable Unavailable MCKEON, G EDWARD RPA Unavailable Unavailable MCKEON, G EDWARD RPA Unavailable Unavailable MCKEON, G EDWARD RPA Unavailable Unavailable MCKEON, G EDWARD RPA Unavailable Unavailable MCKEON, G EDWARD RPA Unavailable Unavailable MCKEON, G EDWARD RPA Unavailable Unavailable MCKEON, G EDWARD RPA Unavailable Unavailable MCKEON, G EDWARD RPA Unavailable Unavailable MCKEON, G EDWARD RPA Unavailable Unavailable MCKEON, G EDWARD RPA Unavailable Unavailable MCKEON, G EDWARD RPA Unavailable Unavailable RING, K WESTON PA Unavailable Unavailable RING, K WESTON PA Unavailable Unavailable RING, K WESTON PA Unavailable Unavailable RING, K WESTON PA Unavailable Unavailable RING, K WESTON PA Unavailable Unavailable RING, K WESTON PA Unavailable Unavailable RING, K WESTON PA Unavailable Unavailable RING, K WESTON PA Unavailable Unavailable RING, K WESTON PA Unavailable Unavailable RING, K WESTON PA Unavailable Unavailable RING, K WESTON PA Unavailable Unavailable RING, K WESTON PA Unavailable Unavailable RING, K WESTON PA Unavailable Unavailable RING, K WESTON PA Unavailable Unavailable RING, K WESTON PA Unavailable Unavailable RING, K WESTON PA Unavailable Unavailable RING, K WESTON PA Unavailable Unavailable RING, K WESTON PA Unavailable Unavailable RING, K WESTON PA Unavailable Unavailable RING, K WESTON PA Unavailable Unavailable RING, K WESTON PA Unavailable Unavailable RING, K WESTON PA Unavailable Unavailable RING, K WESTON PA Unavailable Unavailable Re-disclosure Warning The records that you are about to access may contain information from federally-assisted alcohol or drug abuse programs. If such information is present, then the following federally mandated warning applies: This information has been disclosed to you from records protected by federal confidentiality rules (42 CFR part 2). The federal rules prohibit you from making any further disclosure of this information unless further disclosure is expressly permitted by the written consent of the person to whom it pertains or as otherwise permitted by 42 CFR part 2. A general authorization for the release of medical or other information is NOT sufficient for this purpose. The Federal rules restrict any use of the information to criminally investigate or prosecute any alcohol or drug abuse patient.The records that you are about to access may contain highly sensitive health information, the redisclosure of which is protected by Article 27-F of the [facility] Public Health law. If you continue you may have access to information: Regarding HIV / AIDS; Provided by facilities licensed or operated by the [facility] Office of Mental Health; or Provided by the [facility] Office for People With Developmental Disabilities. If such information is present, then the following [facility] mandated warning applies: This information has been disclosed to you from confidential records which are protected by state law. State law prohibits you from making any further disclosure of this information without the specific written consent of the person to whom it pertains, or as otherwise permitted by law. Any unauthorized further disclosure in violation of state law may result in a fine or [place] [facility] sentence or both. A general authorization for the release of medical or other information is NOT sufficient authorization for further disc losure. Family History Family Member Name Family Member Gender Family Member Status Date o f Status Description Data Source(s) Unknown Female Diagnosis 03/08/2016 12:00:00 AM EDT [facility] ([facility]) Unknown Female Diagnosis 03/08/2016 12:00:00 AM EDT [facility] ([facility]) Encounters Encounter Providers Location Date Indications Data Source(s ) [place] [address] [address] 06/17/2021 12:00:00 AM EST [facility]CW1 ([facility]) [place] [address] [address] 06/10/2021 12:00:00 AM EST eCW1 ([facility]) [place] [address] [address] 05/23/2021 12:00:00 AM EST eCW1 ([facility]) [place] [address] [address] 05/23/2021 12:00:00 AM EST eCW1 ([facility]) [place] [address] [address] 05/03/2021 12:00:00 AM EDT eCW1 ([facility]) [place] [address] [address] 05/03/2021 12:00:00 AM EDT eCW1 ([facility]) [place] [address] [address] 05/02/2021 12:00:00 AM EDT eCW1 ([facility]) [place] [address] [address] 03/23/2021 12:00:00 AM EDT eCW1 ([facility]) [place] [address] [address] 03/02/2021 12:00:00 AM EDT [facility] [place] [address] [address] 02/23/2021 12:00:00 AM EDT [facility] Outpatient Attender: WESTON Godinez 02/07/2021 12:30:00 PM EDT [facility] ([facility]) Outpatient Attender: TIARA MCKEON RPA 12/09 09:18:10 AM EDT - 12/09/2020 10:51:22 AM EDT DocuTap ([facility] ) Attender: Lexie Hampton LENS HARDENER LENS HARDENER PPNCNY [place] 0 12/01/2020 03:06:00 PM EDT - 12/01/2020 03:06:00 PM EDT [facility] ([facility]) OFFICE VISIT, ESTOutpatient Attender: Lexie Hampton LENS HARDENER LENS HARDENER PPNCCELIA [place] 11/24/2020 04:30:00 PM EDT - 11/24/2020 04:30:00 PM EDT Encntr screen for infections w sexl mode of transmissEncounter for surveillance of contraceptive pillsEncounter for oth general cnsl and advice on contraceptionOther sex counselingDysuriaUrgency of urinationFrequency of micturitionAcute cystitis without hematuria NextGen ([facility]) Encntr screen for infections w sexl mode of transmiss Encounter for surveillance of contracept katie pills Encounter for oth general cnsl and advic e on contraception Other sex counseling Dysuria Urgency of urination Frequency of micturition Acute cystitis without hematuria Outpatient Attender: SONG penaloza 10/22/2020 12:50:00 PM EDT MEDENT ([facility]) Unknown [address] [facility] [address] 10/01/2020 12:00:00 AM EDT [facility]CW1 ([facility]) Unknown [address] [facility] [address] 10/01/2020 12:00:00 AM EDT eCW1 ([facility]) Outpatient [address] [facility] [address] 09/24/2020 12:00:00 AM EDT eCW1 ([facility]) ([facility]) [facility] Procedure [address] [place] [address] 09/06/2020 12:00:00 AM EST [facility] Outpatient Attender: Beatriz reyesy 08/17/2020 01:35:00 PM EST MEDENT ([facility]) Unknown [address] [facility] [place] [address] 07/29/2020 12:00:00 AM EST [facility]) [place] [address] [address] 07/28/2020 12:00:00 AM EST [facility]CW1 ([facility]) [place] [address] [address] 07/28/2020 12:00:00 AM EST eCW1 ([facility]) [place] [address] [address] 07/20/2020 12:00:00 AM EST eCW1 ([facility]) [place]patient [address] [address] 07/07/2020 12:00:00 AM EST eCW1 ([facility]) Unknown [address] [address] 07/07/2020 12:00:00 AM EST eCW1 ([facility]) [place] [address] [address] 05/31/2020 12:00:00 AM EST eCW1 ([facility]) [place] [address] [address] 05/28/2020 12:00:00 AM EST eCW1 ([facility]) [facility] [address] [address] 2020 12:00:00 AM EDT eCW1 ([facility]) Immunizations Vaccine Date Status Description Data Source(s) COVID-19 VACCINE Pfizer 07/20/2020 12:00:00 AM EST completed [facility] Vaccine Series Complete: YESThis Data wa s Submitted to [facility] Via [facility]. COVID-19 VACCINE Pfizer 06/29/2020 12:00:00 AM EST completed [facility] Vaccine Series Complete: NOThis Data was Submitted to [facility] Via [employer]. Medications Medication Brand Name Start Date Product Form Dose Route Admi nistrative Instructions Pharmacy Instructions Status Indications Reaction Description Data Source(s) Microgestin 1/20 1-20 MG-MCG Microgestin 07/28 1-20 MG-MCG 12:00:00 AM EST 1.0 {tablet} active Microgestin 07/28 1-20 MG-MCG [facility] Paroxetine 20 MG Oral Tablet [Paxil] Paxil 20 MG Paxil 20 MG 03/02/2021 12:00:00 AM EDT 1.0 {tablet_in_the_morning} active Paxil 20 MG [facility]) buspirone hydrochloride 10 MG Oral Tablet busPIRone HC l 10 MG busPIRone HCl 10 MG 03/02/2021 12:00:00 AM EDT 1.0 {tablet} activ e busPIRone HCl 10 MG [facility]CW1 ([facility]) buspirone hydrochloride 10 MG Oral Tablet busPIRone HC l 10 MG busPIRone HCl 10 MG 03/02/2021 12:00:00 AM EDT 1.0 {tablet} activ e busPIRone HCl 10 MG eCW1 ([facility]) buspirone hydrochloride 10 MG Oral Tablet busPIRone HC l 10 MG busPIRone HCl 10 MG 03/02/2021 12:00:00 AM EDT 1.0 {tablet} activ e busPIRone HCl 10 MG eCW1 ([facility]) Paroxetine 20 MG Oral Tablet [Paxil] Paxil 20 MG Paxil 20 MG 03/02/2021 12:00:00 AM EDT 1.0 {tablet_in_the_morning} active Paxil 20 MG eCW1 ([facility]) Paroxetine 20 MG Oral Tablet [Paxil] Paxil 20 MG Paxil 20 MG 03/02/2021 12:00:00 AM EDT 1.0 {tablet_in_the_morning} active Paxil 20 MG eCW1 ([facility]) buspirone hydrochloride 10 MG Oral Tablet busPIRone HC l 10 MG busPIRone HCl 10 MG 03/02/2021 12:00:00 AM EDT 1.0 {tablet} activ e busPIRone HCl 10 MG eCW1 ([facility]) buspirone hydrochloride 10 MG Oral Tablet busPIRone HC l 10 MG busPIRone HCl 10 MG 03/02/2021 12:00:00 AM EDT 1.0 {tablet} activ e busPIRone HCl 10 MG eCW1 ([facility]) Paroxetine 20 MG Oral Tablet [Paxil] Paxil 20 MG Paxil 20 MG 03/02/2021 12:00:00 AM EDT 1.0 {tablet_in_the_morning} active Paxil 20 MG eCW1 ([facility]) Paroxetine 20 MG Oral Tablet [Paxil] Paxil 20 MG Paxil 20 MG 03/02/2021 12:00:00 AM EDT 1.0 {tablet_in_the_morning} active Paxil 20 MG eCW1 ([facility]) Paroxetine 20 MG Oral Tablet [Paxil] Paxil 20 MG Paxil 20 MG 03/02/2021 12:00:00 AM EDT 1.0 {tablet_in_the_morning} active Paxil 20 MG eCW1 ([facility]) Paroxetine 20 MG Oral Tablet [Paxil] Paxil 20 MG Paxil 20 MG 03/02/2021 12:00:00 AM EDT 1.0 {tablet_in_the_morning} active Paxil 20 MG eCW1 ([facility]) buspirone hydrochloride 10 MG Oral Tablet busPIRone HC l 10 MG busPIRone HCl 10 MG 03/02/2021 12:00:00 AM EDT 1.0 {tablet} activ e busPIRone HCl 10 MG eCW1 ([facility]) buspirone hydrochloride 10 MG Oral Tablet busPIRone HC l 10 MG busPIRone HCl 10 MG 03/02/2021 12:00:00 AM EDT 1.0 {tablet} activ e busPIRone HCl 10 MG eCW1 ([facility]) Paroxetine 20 MG Oral Tablet [Paxil] Paxil 20 MG Paxil 20 MG 03/02/2021 12:00:00 AM EDT 1.0 {tablet_in_the_morning} active Paxil 20 MG eCW1 ([facility]) Paroxetine 20 MG Oral Tablet [Paxil] Paxil 20 MG Paxil 20 MG 03/02/2021 12:00:00 AM EDT 1.0 {tablet_in_the_morning} active Paxil 20 MG eCW1 ([facility]) buspirone hydrochloride 10 MG Oral Tablet busPIRone HC l 10 MG busPIRone HCl 10 MG 03/02/2021 12:00:00 AM EDT 1.0 {tablet} activ e busPIRone HCl 10 MG eCW1 ([facility]) buspirone hydrochloride 10 MG Oral Tablet busPIRone HC l 10 MG busPIRone HCl 10 MG 03/02/2021 12:00:00 AM EDT 1.0 {tablet} activ e busPIRone HCl 10 MG eCW1 ([facility]) 200 ACTUAT Albuterol 0.09 MG/ACTUAT Metered Dose Inhaler [Pr oAir] Proair HFA 02/07/2021 12:00:00 AM EDT ORAL active MEDENT ([facility]) NITROFURANTOIN, MACROCRYSTALS 25 MG / Ni trofurantoin, Monohydrate 75 MG Oral Capsule nitrofurantoin monohydrate/macrocrystals 100 mg capsule nitrofurantoin monohydrate/macrocrystals 100 mg capsule 11/24/2020 12:00:00 AM EDT completed 1 tab po BID x 5 days [facility] ([facility]) Ketorolac Tromethamine 10 MG Oral Tablet Ketorolac Trometham ine 10 MG 07/28/2020 12:00:00 AM EST active Ketorol ac Tromethamine 10 MG eCW1 ([facility]) Ondansetron 4 MG Oral Tablet [Zofran] Zofran 4 MG Zofran 4 M G 07/28/2020 12:00:00 AM EST 1.0 {tablet} active Zo enrie 4 MG eCW1 ([facility]) Ondansetron 4 MG Oral Tablet [Zofran] Zofran 4 MG Zofran 4 M G 07/28/2020 12:00:00 AM EST 1.0 {tablet} active Zo ernie 4 MG eCW1 ([facility]) Ondansetron 4 MG Oral Tablet [Zofran] Zofran 4 MG Zofran 4 M G 07/28/2020 12:00:00 AM EST 1.0 {tablet} active Zo ernie 4 MG eCW1 ([facility]) Ketorolac Tromethamine 10 MG Oral Tablet Ketorolac Trometham ine 10 MG 07/28/2020 12:00:00 AM EST active Ketorol ac Tromethamine 10 MG eCW1 ([facility]) Ondansetron 4 MG Oral Tablet [Zofran] Zofran 4 MG Zofran 4 M G 07/28/2020 12:00:00 AM EST 1.0 {tablet} active Zo ernie 4 MG eCW1 ([facility]) Ondansetron 4 MG Oral Tablet [Zofran] Zofran 4 MG Zofran 4 M G 07/28/2020 12:00:00 AM EST 1.0 {tablet} active Zo ernie 4 MG eCW1 ([facility]) Ketorolac Tromethamine 10 MG Oral Tablet Ketorolac Trometham ine 10 MG 07/28/2020 12:00:00 AM EST active Ketorol ac Tromethamine 10 MG eCW1 ([facility]) Ketorolac Tromethamine 10 MG Oral Tablet Ketorolac Trometham ine 10 MG 07/28/2020 12:00:00 AM EST active Ketorol ac Tromethamine 10 MG eCW1 ([facility]) Ketorolac Tromethamine 10 MG Oral Tablet Ketorolac Trometham ine 10 MG 07/28/2020 12:00:00 AM EST active Ketorol ac Tromethamine 10 MG eCW1 ([facility]) Ketorolac Tromethamine 10 MG Oral Tablet Ketorolac Trometham ine 10 MG 07/28/2020 12:00:00 AM EST active Ketorol ac Tromethamine 10 MG eCW1 ([facility]) Ondansetron 4 MG Oral Tablet [Zofran] Zofran 4 MG Zofran 4 M G 07/28/2020 12:00:00 AM EST 1.0 {tablet} active Zo ernie 4 MG eCW1 ([facility]) Ondansetron 4 MG Oral Tablet [Zofran] Zofran 4 MG Zofran 4 M G 07/28/2020 12:00:00 AM EST 1.0 {tablet} active Zo ernie 4 MG eCW1 ([facility]) Ondansetron 4 MG Oral Tablet [Zofran] Zofran 4 MG Zofran 4 M G 07/28/2020 12:00:00 AM EST 1.0 {tablet} active Zo ernie 4 MG eCW1 ([facility]) Ketorolac Tromethamine 10 MG Oral Tablet Ketorolac Trometham ine 10 MG 07/28/2020 12:00:00 AM EST active Ketorol ac Tromethamine 10 MG eCW1 ([facility]) Ketorolac Tromethamine 10 MG Oral Tablet Ketorolac Trometham ine 10 MG 07/28/2020 12:00:00 AM EST active Ketorol ac Tromethamine 10 MG eCW1 ([facility]) Ketorolac Tromethamine 10 MG Oral Tablet Ketorolac Trometham ine 10 MG 07/28/2020 12:00:00 AM EST active Ketorol ac Tromethamine 10 MG eCW1 ([facility]) Ketorolac Tromethamine 10 MG Oral Tablet Ketorolac Trometham ine 10 MG 07/28/2020 12:00:00 AM EST active Ketorol ac Tromethamine 10 MG eCW1 ([facility]) Ketorolac Tromethamine 10 MG Oral Tablet Ketorolac Trometham ine 10 MG 07/28/2020 12:00:00 AM EST active Ketorol ac Tromethamine 10 MG eCW1 ([facility]) Ketorolac Tromethamine 10 MG Oral Tablet Ketorolac Trometham ine 10 MG 07/28/2020 12:00:00 AM EST active Ketorol ac Tromethamine 10 MG eCW1 ([facility]) Ondansetron 4 MG Oral Tablet [Zofran] Zofran 4 MG Zofran 4 M G 07/28/2020 12:00:00 AM EST 1.0 {tablet} active Zo ernie 4 MG eCW1 ([facility]) Ketorolac Tromethamine 10 MG Oral Tablet Ketorolac Trometham ine 10 MG 07/28/2020 12:00:00 AM EST active Ketorol ac Tromethamine 10 MG eCW1 ([facility]) Ondansetron 4 MG Oral Tablet [Zofran] Zofran 4 MG Zofran 4 M G 07/28/2020 12:00:00 AM EST 1.0 {tablet} active Zo ernie 4 MG eCW1 ([facility]) Ketorolac Tromethamine 10 MG Oral Tablet Ketorolac Trometham ine 10 MG 07/28/2020 12:00:00 AM EST active Ketorol ac Tromethamine 10 MG eCW1 ([facility]) Ondansetron 4 MG Oral Tablet [Zofran] Zofran 4 MG Zofran 4 M G 07/28/2020 12:00:00 AM EST 1.0 {tablet} active Zo ernie 4 MG eCW1 ([facility]) Ketorolac Tromethamine 10 MG Oral Tablet Ketorolac Trometham ine 10 MG 07/28/2020 12:00:00 AM EST active Ketorol ac Tromethamine 10 MG eCW1 ([facility]) Ondansetron 4 MG Oral Tablet [Zofran] Zofran 4 MG Zofran 4 M G 07/28/2020 12:00:00 AM EST 1.0 {tablet} active Zo ernie 4 MG eCW1 ([facility]) Ondansetron 4 MG Oral Tablet [Zofran] Zofran 4 MG Zofran 4 M G 07/28/2020 12:00:00 AM EST 1.0 {tablet} active Zo ernie 4 MG eCW1 ([facility]) Ketorolac Tromethamine 10 MG Oral Tablet Ketorolac Trometham ine 10 MG 07/28/2020 12:00:00 AM EST active Ketorol ac Tromethamine 10 MG eCW1 ([facility]) Ketorolac Tromethamine 10 MG Oral Tablet Ketorolac Trometham ine 10 MG 07/28/2020 12:00:00 AM EST active Ketorol ac Tromethamine 10 MG eCW1 ([facility]) Ketorolac Tromethamine 10 MG Oral Tablet Ketorolac Trometham ine 10 MG 07/28/2020 12:00:00 AM EST active Ketorol ac Tromethamine 10 MG eCW1 ([facility]) Ondansetron 4 MG Oral Tablet [Zofran] Zofran 4 MG Zofran 4 M G 07/28/2020 12:00:00 AM EST 1.0 {tablet} active Zo ernie 4 MG eCW1 ([facility]) Ondansetron 4 MG Oral Tablet [Zofran] Zofran 4 MG Zofran 4 M G 07/28/2020 12:00:00 AM EST 1.0 {tablet} active Zo ernie 4 MG eCW1 ([facility]) Ondansetron 4 MG Oral Tablet [Zofran] Zofran 4 MG Zofran 4 M G 07/28/2020 12:00:00 AM EST 1.0 {tablet} active Zo ernie 4 MG eCW1 ([facility]) Ondansetron 4 MG Oral Tablet [Zofran] Zofran 4 MG Zofran 4 M G 07/28/2020 12:00:00 AM EST 1.0 {tablet} active Zo ernie 4 MG eCW1 ([facility]) Ketorolac Tromethamine 10 MG Oral Tablet Ketorolac Trometham ine 10 MG 07/28/2020 12:00:00 AM EST active Ketorol ac Tromethamine 10 MG eCW1 ([facility]) Ondansetron 4 MG Oral Tablet [Zofran] Zofran 4 MG Zofran 4 M G 07/28/2020 12:00:00 AM EST 1.0 {tablet} active Zo ernie 4 MG eCW1 ([facility]) Ondansetron 4 MG Oral Tablet [Zofran] Zofran 4 MG Zofran 4 M G 07/28/2020 12:00:00 AM EST 1.0 {tablet} active Zo ernie 4 MG eCW1 ([facility]) MICROGESTIN 20 TABS 21S WHITE norethindrone ac-eth estradi ol 03/22/2017 12:00:00 AM EDT completed TAKE 1 TABLET BY MOUTH DAILY FOR CONTINUOUS USE [facility] ([facility]) Insurance Providers Payer name Policy type / Coverage type Policy ID Covered constitution party ID Covered constitution party's relationship to bruner Policy Bruner Plan Information [place]BS [place] 302/307 [id number] [id number] [employer] Blue Cross and Blue Shield - [place] Blue Cross/B lue Shield [id number] Self [id number] [facility] [id number] self [id number] [facility] [employer] [id number] Self [id number] SELF PAY ONLY [id number] SP [id number] [place] P[place] 302/307 [id number] SP [id number] [employer]CELL[place] BCBS B [id number] S VYS [id number] [place] P[place] 302/307 [id number] SP [id number] [place]BS [place] P[place] 302/307 [id number] SP [id number] O BLUE YNC [id number] SP [id number] ANSI-Commercial [id number] ANSI-Commercial [id number] ANSI-Commercial [id number] BCBS/Excellus Commercial [id number] Self [id number] ANSI-Commercial [id number] ANSI-Commercial [id number] BCBS/[place]cell[employer] Commercial [id number] Self [id number] ANSI-Commercial [id number] BCBS/Excellus Commercial [id number] Family Dependent [id number] ANSI-Commercial [id number] [place] Healthy [place] [id number] Self Y [id number] [place] [id number] Self Y [id number] [place] [id number] Self Y [id number] [facility] [id number] SP [id number] [place]/307 [id number] SP [id number] BCBS/Excellus Commercial [id number] Family Dependent [id number] BCBS/Excellus Commercial [id number] Family Dependent [id number] [place] Commercial [id number] Self Y [id number] BS [place] Commercial [id number] Self Y [id number] BS [place] Commercial [id number] Self Y [id number] BS [place] Commercial [id number] Self Y [id number] BS [place] Commercial [id number] Self Y [id number] BS [place] Commercial [id number] Self Y [id number] BS [place] Commercial [id number] Self Y [id number] SELF PAY ONLY [id number] SP [id number] [place] 305/805 [id number] MO2 [id number] [place] 305/805 [id number] SP [id number] BCBS [place] 304/804 [id number] MO2 [id number] BCBS [place] 304/804 [id number] FA2 [id number] ANSI-Not a Secondary Insurance [id number] BCBS [place] HMO [id number] SP [id number] BCBS [place] P[place] 302/307 YNC [id number] SP [id number] SELF PAY EXCELLUS BC-BS PPO 306 [id number] SP [id number] Problems, Conditions, and Diagnoses Code Display Name Description Problem Type Effective Dates Data Source(s) G89.29 [id number] Other chronic pain Problem 09/24/2020 12:00: 00 AM EDT [facility] N87.0 [id number] Dysplasia of cervix, low grade (RICK 1) Pr oblem 07/20/2020 12:00:00 AM EST eCW1 [facility]) N92.1 [id number] Breakthrough bleeding on control pi lls Problem 07/20/2020 12:00:00 AM EST eCW1 [facility]) Surgeries/Procedures Procedure Description Date Indications Data Source(s) OFFICE OUTPATIENT VISIT 15 MINUTES 02/07/2021 12:00:00 AM EDT [facility] ([facility]) CVR Ortho/Prosthetic Aide.Svc. STI / H 11/24/2020 12:00:00 AM EDT - 11/24/2020 12:00:00 AM EDT [facility] ([facility]) CVR Ortho/Prosthetic Aide.Svc. Other 11/24/2020 12:00:00 AM EDT - 2020 12:00:00 AM EDT [facility] ([facility]) CVR Ortho/Prosthetic Aide.Svc. Contraceptive 11/24/2020 12 :00:00 AM EDT - 11/24/2020 12:00:00 AM EDT [facility] ([facility]) CVR Med.Svc. Height/Weight 11/24/2020 12 :00:00 AM EDT - 11/24/2020 12:00:00 AM EDT [facility] ([facility]) CVR Blood Pressure 11/24/2020 12:00:00 AM EDT - 2020 12:00:00 AM EDT [facility] ([facility]) N.GONORRHOEAE, URINE 11/24/2020 12:00:00 AM EDT - 11/24/2020 12:00:00 AM EDT [facility] ([facility]) CHYLMD TRACH, URINE 11/24/2020 12:00:00 AM EDT - 11/24 12:00:00 AM EDT [facility] ([facility]) URINE CULTURE/COLONY COUNT 11/24/2020 12 :00:00 AM EDT - 11/24/2020 12:00:00 AM EDT [facility] ([facility]) OFFICE VISIT, EST 11/24/2020 12:00:00 AM EDT - 021 12:00:00 AM EDT [facility] ([facility]) URINALYSIS NONAUTO W/O SCOPE 11/24/2020 12:00:00 AM EDT - 11/24/2020 12:00:00 AM EDT [facility] ([facility]) PERIODIC PREVENTIVE MED EST PATIENT 18-39 YRS 10/23/19 12:00:00 AM EDT [facility] ([facility]) Medication: Ferric subsulfate topical solution (MONSELS) 8M L 09/06/2020 12:00:00 AM EST eCW1 ([facility]) OFFICE OUTPATIENT VISIT 15 MINUTES 08/17/2020 12:00:00 AM EST [facility] ([facility]) Results ID Date Data Source [id number] 02/07/2021 12:00:00 AM EDT [facility] Name Value Range Interpretation Code Description Data Kanika rce(s) Supporting Document(s) SARS-CoV2 Rapid Antigen Negative [facility] This lab was reported by [facility]. ID Date Data Source [id number] 11/24/2020 04:59:28 PM EDT [facility] ([facility]) Name Value Range Interpretation Code Description Data Kanika rce(s) Supporting Document(s) Color: yellow; Glucose: nega tive; Blood: trace; pH: 6.0; Protein: small; Nitrite: positive; Leukocytes: trace Abnormal (applies to non-numeric results) Urine Dipstick [facility] ([facility]) ID Date Data Source [facility] SPINE LS COMPLETE 09/24/2020 12:00:00 AM EDT eCW1 ([facility]) Name Value Range Interpretation Code Description Data Kanika rce(s) Supporting Document(s) SMC SPINE LS COMPLETE eCW1 ([facility]) ID Date Data Source [id number] 09/10/2020 11:00:00 AM EST [facility] Name Value Range Interpretation Code Description Data Kanika rce(s) Supporting Document(s) SARS coronavirus 2 RNA Not Detected [facility] This lab was ordered by [facility] and reported by [facility]. ID Date Data Source [id number] 08/17/2020 12:00:00 AM EST [facility] Name Value Range Interpretation Code Description Data Kanika rce(s) Supporting Document(s) SARS-CoV2 Rapid Antigen Negative [facility] This lab was reported by [facility]. ID Date Data Source FREE T4 & TSH PANEL 07/28/2020 12:00:00 AM EST eCW1 ([facility]) Name Value Range Interpretation Code Description Data Kanika rce(s) Supporting Document(s) 0.996 0.358-3.740 eCW1 ([facility]) 0.97 0.76-1.46 eCW1 ([facility]) ID Date Data Source ERYTHROCYTE SEDIMENTATION RATE 07/28/2020 12:00:00 AM EST eC W1 [facility] Name Value Range Interpretation Code Description Data Kanika rce(s) Supporting Document(s) 7 0-20 eCW1 ([facility]) ID Date Data Source Comprehensive Metabolic Profile (CMP) 07/28/2020 12:00:00 AM EST eCW1 [facility]) Name Value Range Interpretation Code Description Data Kanika rce(s) Supporting Document(s) 77 70-100 eCW1 ([facility]) 0.86 0.55-1.30 eCW1 ([facility]) > 60.0 >60 eCW1 ([facility]) 10 7-18 eCW1 ([facility]) 106 98-107 eCW1 ([facility]) 4.2 3.5-5.1 eCW1 ([facility]) 29 21-32 eCW1 ([facility]) 137 136-145 eCW1 ([facility]) 17 7-37 eCW1 ([facility]) 29 12-78 eCW1 ([facility]) 80 45-117 eCW1 ([facility]) 0.2 0.2-1.0 eCW1 ([facility]) 8.8 8.5-10.1 eCW1 ([facility]) 3.8 3.2-5.2 eCW1 ([facility]) 1.1 1.2-2.2 eCW1 ([facility]) 7.2 6.4-8.2 eCW1 ([facility]) ID Date Data Source CBC - Complete Blood Count 07/28/2020 12:00:00 AM EST eCW1 ( [facility] Name Value Range Interpretation Code Description Data Kanika rce(s) Supporting Document(s) 4.55 4.00-5.40 eCW1 ([facility]) 7.9 4.0-10.0 eCW1 ([facility]) 13.5 12.0-15.5 eCW1 ([facility]) 41.1 36.0-47.0 eCW1 ([facility]) 29.7 27.0-33.0 eCW1 ([facility]) 90.3 80.0-96.0 eCW1 ([facility]) 32.8 32.0-36.5 eCW1 ([facility]) 12.6 11.5-14.5 eCW1 ([facility]) 301 150-450 eCW1 ([facility]) ID Date Data Source PAP REQUEST FOR SERVICE 07/20/2020 12:00:00 AM EST eCW1 ([facility]) Name Value Range Interpretation Code Description Data Kanika rce(s) Supporting Document(s) PAP REQUEST FOR SERVICE eCW1 ( [facility]) ID Date Data Source [id number] 06/15/2020 12:00:00 AM EST [facility] Name Value Range Interpretation Code Description Data Kanika rce(s) Supporting Document(s) 2019-nCoV RNA XXX LEISA+probe-Imp [facility] This lab was ordered by [facility] and reported by [employer] ID Date Data Source [id number] 06/07/2020 12:00:00 AM EST [facility] Name Value Range Interpretation Code Description Data Kanika rce(s) Supporting Document(s) SARS coronavirus 2 RNA [Presence] in Res piratory specimen by LEISA with probe detection [facility] This lab was ordered by [facility] and reported by [employer]. ID Date Data Source [id number] 04/24/2020 12:00:00 AM EDT [facility] Name Value Range Interpretation Code Description Data Kanika rce(s) Supporting Document(s) 2019-nCoV RNA XXX LEISA+probe-Imp [facility] This lab was ordered by [facility] and reported by [employer] Procedure Social History Code Duration Value Status Description Data Source(s ) Smoking 02/07/2021 12:00:00 AM EDT Patient has never smoked co mpleted Patient has never smoked [facility] ([facility]) Smoking 12/01/2020 12:00:00 AM EDT Never smoker completed Never s moker [facility] ([facility]) 11/24/2020 12:00:00 AM EDT Current non-smoker completed C urrent non-smoker [facility] ([facility]) Smoking 09/24/2020 12:00:00 AM EDT Never Smoker completed Never S moker eCW1 ([facility]) Smoking 09/24/2020 12:00:00 AM EDT Never Smoker completed Never S moker eCW1 ([facility]) Smoking 09/24/2020 12:00:00 AM EDT Never Smoker completed Never S moker eCW1 ([facility]) Smoking 09/24/2020 12:00:00 AM EDT Never Smoker completed Never S moker eCW1 ([facility]) Smoking 09/24/2020 12:00:00 AM EDT Never Smoker completed Never S moker eCW1 ([facility]) Smoking 09/24/2020 12:00:00 AM EDT Never Smoker completed Never S moker eCW1 ([facility]) Smoking 09/24/2020 12:00:00 AM EDT Never Smoker completed Never S moker eCW1 ([facility]) Smoking 09/24/2020 12:00:00 AM EDT Never Smoker completed Never S moker eCW1 ([facility]) Smoking 09/24/2020 12:00:00 AM EDT Never Smoker completed Never S moker eCW1 ([facility]) Smoking 09/24/2020 12:00:00 AM EDT Never Smoker completed Never S moker eCW1 ([facility]) Smoking 09/24/2020 12:00:00 AM EDT Never Smoker completed Never S moker eCW1 ([facility]) Smoking 09/24/2020 12:00:00 AM EDT Never Smoker completed Never S moker eCW1 ([facility]) Smoking 09/24/2020 12:00:00 AM EDT Never Smoker completed Never S moker eCW1 ([facility]) Smoking 09/06/2020 12:00:00 AM EST Never Smoker completed Never S moker eCW1 ([facility]) Smoking 07/28/2020 12:00:00 AM EST Never Smoker completed Never S moker eCW1 ([facility]) Smoking 07/28/2020 12:00:00 AM EST Never Smoker completed Never S moker eCW1 ([facility]) Smoking 07/28/2020 12:00:00 AM EST Never Smoker completed Never S moker eCW1 ([facility]) Smoking 07/28/2020 12:00:00 AM EST Never Smoker completed Never S moker eCW1 ([facility]) Smoking 07/28/2020 12:00:00 AM EST Never Smoker completed Never S moker eCW1 ([facility]) Smoking 07/20/2020 12:00:00 AM EST Never Smoker completed Never S moker eCW1 ([facility]) Smoking 05/24/2020 12:00:00 AM EST Never Smoker completed Never S moker eCW1 ([facility]) Smoking 05/24/2020 12:00:00 AM EST Never Smoker completed Never S moker eCW1 ([facility]) Vital Signs ID Date Data Source UNK Name Value Range Interpretation Code Description Data Source(s) [facility]stolic blood pressure 115 mm[Hg] 115 mm[facility]Hg] [facility] Diastolic blood pressure 76 mm[Hg] 76 mm[Hg] [facility] ([facility]) Heart rate 84 /min 84 /min [facility] ([facility]) Respiratory rate 12 /min 12 /min [facility] ( [facility]) Oxygen saturation in Arterial blood by Pulse oximetry 99 % 99 % [facility] ([facility]) Body temperature 97.3 [degF] 97.3 [degF] [facility] ([facility]) Body height 62 [in_i] 62 [in_i] [facility] ([facility]) 5'2" Body mass index (BMI) [Ratio] 30.2 kg/m2 30.2 k g/m2 [facility] ([facility]) Body weight 165.00 [lb_av] 165.00 [lb_av] MEDEN T ([facility]) Body height 157.48 cm 157.48 cm [facility] ([facility]) Body weight 80.739 kg 80.739 kg [facility] ([facility]) Systolic blood pressure 118 mm[Hg] 118 mm[Hg] N extGen ([facility]) Diastolic blood pressure 78 mm[Hg] 78 mm[Hg] [facility] ([facility]) Body mass index (BMI) [Ratio] 32.56 kg/m2 Overweight 32.56 kg/m2 [facility] ([facility]) Systolic blood pressure 112 mm[Hg] 112 mm[Hg] M EDENT ([facility], [facility]) Respiratory rate 16 /min 16 /min [facility] ( [facility]) Oxygen saturation in Arterial blood by Pulse oximetry 98 % 98 % [facility] ([facility]) Heart rate 98 /min 98 /min [facility] ([facility]) Body weight 165.00 [lb_av] 165.00 [lb_av] MEDEN T ([facility]) Body mass index (BMI) [Ratio] 30.2 kg/m2 30.2 k g/m2 [facility] ([facility]) Body temperature 97.3 [degF] 97.3 [degF] [facility] ([facility]) Diastolic blood pressure 77 mm[Hg] 77 mm[Hg] [facility] ([facility]) Body height 62 [in_i] 62 [in_i] [facility] ([facility]) 5'2" Body weight 170.4 [lb_av] 170.4 [lb_av] eCW1 ([facility]) Body height [in_i] eCW1 ([facility]) Body mass index (BMI) [Ratio] 30.18 kg/m2 30.18 kg/m2 eCW1 [facility] Heart rate 104 /min 104 /min eCW1 ([facility]) Respiratory rate 18 /min 18 /min eCW1 ([facility]) Body temperature 99.2 [degF] 99.2 [degF] eCW1 ( [facility]) Systolic blood pressure 130 mm[Hg] 130 mm[Hg] e CW1 ([facility]) Diastolic blood pressure 80 mm[Hg] 80 mm[Hg] eCW1 [facility]) Body weight 168 [lb_av] 168 [lb_av] eCW1 ([facility]) Body weight 76.2 kg 76.2 kg eCW1 ([facility]) Body height [in_i] eCW1 ([facility]) Body mass index (BMI) [Ratio] 29.76 kg/m2 29.76 kg/m2 eCW1 [facility]) Systolic blood pressure 120 mm[Hg] 120 mm[Hg] e CW1 ([facility]) Diastolic blood pressure 76 mm[Hg] 76 mm[Hg] eCW1 ([facility]) Respiratory rate 16 /min 16 /min MEDENT ( [facility]) Oxygen saturation in Arterial blood by Pulse oximetry 98 % 98 % [facility] ([facility]) Body temperature 97.3 [degF] 97.3 [degF] [facility] ([facility]) Body weight 160.00 [lb_av] 160.00 [lb_av] MEDEN T ([facility], [facility]) Systolic blood pressure 102 mm[Hg] 102 mm[Hg] M EDENT ([facility]) Diastolic blood pressure 70 mm[Hg] 70 mm[Hg] MED[facility] ([facility]) Heart rate 100 /min 100 /min [facility] ([facility]) Systolic blood pressure 120 mm[Hg] 120 mm[Hg] e CW1 ([facility]) Body temperature 97.8 [degF] 97.8 [degF] eCW1 ( [facility]) Diastolic blood pressure 70 mm[Hg] 70 mm[Hg] eCW1 ([facility]) Body weight 167.6 [lb_av] 167.6 [lb_av] eCW1 ([facility]) Body height [in_i] eCW1 ([facility]) Body mass index (BMI) [Ratio] 29.69 kg/m2 29.69 kg/m2 eCW1 ([facility]) Heart rate 54 /min 54 /min eCW1 ([facility]) Respiratory rate 18 /min 18 /min eCW1 ([facility]) Body weight 162 [lb_av] 162 [lb_av] eCW1 ([facility]) Body weight 73.48 kg 73.48 kg eCW1 ([facility]) Body height [in_i] eCW1 ([facility]) Body mass index (BMI) [Ratio] 28.69 kg/m2 28.69 kg/m2 eCW1 [facility]) Systolic blood pressure 113 mm[Hg] 113 mm[Hg] e CW1 ([facility]) Diastolic blood pressure 69 mm[Hg] 69 mm[Hg] eCW1 ([facility]) Body weight 168.8 [lb_av] 168.8 [lb_av] eCW1 ([facility]) Body height [in_i] eCW1 ([facility]) Body mass index (BMI) [Ratio] 29.90 kg/m2 29.90 kg/m2 eCW1 ([facility]) Heart rate 107 /min 107 /min eCW1 ([facility]) Respiratory rate 18 /min 18 /min eCW1 ([facility]) Body temperature 97.8 [degF] 97.8 [degF] eCW1 ( [facility]) Systolic blood pressure 120 mm[Hg] 120 mm[Hg] e CW1 ([facility]) Diastolic blood pressure 70 mm[Hg] 70 mm[Hg] eCW1 [facility] Patient Treatment Plan of Care Planned Activity Planned Date Details Description Data Source (s) Microgestin 07/28 1-20 MG-MCG 06/17/2021 12:00:00 AM EST eCW1 ([facility] Paroxetine 20 MG Oral Tablet [Paxil] 03/02/2021 12:00:00 AM EDT eCW1 ([facility]) buspirone hydrochloride 10 MG Oral Tablet 03/02/2021 12:00:00 AM ED T eCW1 ([facility]) Paroxetine 20 MG Oral Tablet [Paxil] 03/02/2021 12:00:00 AM EDT eCW1 ([facility]) buspirone hydrochloride 10 MG Oral Tablet 03/02/2021 12:00:00 AM ED T eCW1 ([facility]) Paroxetine 20 MG Oral Tablet [Paxil] 03/02/2021 12:00:00 AM EDT eCW1 ([facility]) buspirone hydrochloride 10 MG Oral Tablet 03/02/2021 12:00:00 AM ED T eCW1 ([facility]) Paroxetine 20 MG Oral Tablet [Paxil] 03/02/2021 12:00:00 AM EDT eCW1 ([facility]) buspirone hydrochloride 10 MG Oral Tablet 03/02/2021 12:00:00 AM ED T eCW1 ([facility]) Paroxetine 20 MG Oral Tablet [Paxil] 03/02/2021 12:00:00 AM EDT eCW1 ([facility]) buspirone hydrochloride 10 MG Oral Tablet 03/02/2021 12:00:00 AM ED T eCW1 ([facility]) Paroxetine 20 MG Oral Tablet [Paxil] 03/02/2021 12:00:00 AM EDT eCW1 ([facility]) buspirone hydrochloride 10 MG Oral Tablet 03/02/2021 12:00:00 AM ED T eCW1 ([facility]) Paroxetine 20 MG Oral Tablet [Paxil] 03/02/2021 12:00:00 AM EDT eCW1 ([facility]) buspirone hydrochloride 10 MG Oral Tablet 03/02/2021 12:00:00 AM ED T eCW1 ([facility]) Paroxetine 20 MG Oral Tablet [Paxil] 03/02/2021 12:00:00 AM EDT eCW1 ([facility]) buspirone hydrochloride 10 MG Oral Tablet 03/02/2021 12:00:00 AM ED T eCW1 ([facility]) buspirone hydrochloride 10 MG Oral Tablet 03/02/2021 12:00:00 AM ED T eCW1 ([facility]) Paroxetine 20 MG Oral Tablet [Paxil] 03/02/2021 12:00:00 AM EDT eCW1 ([facility]) NITROFURANTOIN, MACROCRYSTALS 25 MG / Ni trofurantoin, Monohydrate 75 MG Oral Capsule 11/24/2020 12:00:00 AM EDT Next[facility] en ([facility]) Ketorolac Tromethamine 10 MG Oral Tablet 07/28/2020 12:00:00 AM EST eCW1 ([facility]) Ondansetron 4 MG Oral Tablet [Zofran] 07/28/2020 12:00:00 AM EST eCW1 ([facility]) Ketorolac Tromethamine 10 MG Oral Tablet 07/28/2020 12:00:00 AM EST eCW1 ([facility]) Ondansetron 4 MG Oral Tablet [Zofran] 07/28/2020 12:00:00 AM EST eCW1 ([facility]) Ketorolac Tromethamine 10 MG Oral Tablet 07/28/2020 12:00:00 AM EST eCW1 ([facility]) Ondansetron 4 MG Oral Tablet [Zofran] 07/28/2020 12:00:00 AM EST eCW1 ([facility]) Ketorolac Tromethamine 10 MG Oral Tablet 07/28/2020 12:00:00 AM EST eCW1 ([facility]) Ondansetron 4 MG Oral Tablet [Zofran] 07/28/2020 12:00:00 AM EST eCW1 ([facility]) Ketorolac Tromethamine 10 MG Oral Tablet 07/28/2020 12:00:00 AM EST eCW1 ([facility]) Ondansetron 4 MG Oral Tablet [Zofran] 07/28/2020 12:00:00 AM EST eCW1 ([facility]) MICROGESTIN 07/28 TABS 21S WHITE 03/22/2017 12:00:00 AM EDT [facility] ([facility])
[2021-06-19 23:35] LABS: HEMATOCRIT 42.6 % (36.0-47.0); HEMOGLOBIN 14.2 g/dl (12.0-15.5); MEAN CORPUSCULAR HEMOGLOBIN 29.5 pg (27.0-33.0); MEAN CORPUSCULAR HGB CONC 33.3 g/dl (32.0-36.5); MEAN CORPUSCULAR VOLUME 88.4 fl (80.0-96.0); PLATELET COUNT, AUTOMATED 299 10^3/uL (150-450); RED BLOOD COUNT 4.82 10^6/uL (4.00-5.40); WHITE BLOOD COUNT 9.2 10^3/uL (4.0-10.0)
[2021-06-19 23:45] LABS: ACETAMINOPHEN LEVEL < 2.0 UG/ML (10.0-30.0); ALBUMIN 4.1 GM/DL (3.2-5.2); ALT/SGPT 54 U/L (12-78); BILIRUBIN,DIRECT < 0.1 MG/DL (0.0-0.2); BILIRUBIN,TOTAL 0.2 MG/DL (0.2-1.0); BLOOD UREA NITROGEN 11 MG/DL (7-18); CALCIUM LEVEL 8.5 MG/DL (8.5-10.1); CARBON DIOXIDE LEVEL 23 MEQ/L (21-32); CHLORIDE LEVEL 111 MEQ/L (98-107); CREATININE FOR GFR 0.96 MG/DL (0.55-1.30); ETHYL ALCOHOL (ETHANOL) 0.239 % (0.000-0.010); GLOMERULAR FILTRATION RATE > 60.0 (>60); GLUCOSE, FASTING 94 MG/DL (70-100); POTASSIUM SERUM 3.5 MEQ/L (3.5-5.1); SALICYLATE LEVEL < 1.7 MG/DL (5.0-30.0); SODIUM LEVEL 143 MEQ/L (136-145); TOTAL PROTEIN 7.9 GM/DL (6.4-8.2)
[2021-06-20] MEDS ORDERED: CHARCOAL ACTIVATED LIQUID 25 GM/120 ML BTL PO ONE (00:30)
[2021-06-20] MEDS ORDERED: LORazepam 2 MG/ML VIAL IV STA (00:32)
[2021-06-20 00:38] LABS: AMPHETAMINES LEVEL URINE POSITIVE (NEGATIVE); BARBITURATES URINE NEGATIVE (NEGATIVE); BENZODIAZEPINES URINE NEGATIVE (NEGATIVE); CANNABINOIDS URINE NEGATIVE (NEGATIVE); COCAINE METABOLITE URINE NEGATIVE (NEGATIVE); METHADONE URINE NEGATIVE (NEGATIVE); OPIATES URINE NEGATIVE (NEGATIVE); PHENCYCLIDINE URINE NEGATIVE (NEGATIVE)
[2021-06-20] MEDS ORDERED: ONDANSETRON 4MG/2ML VIAL IV ONE (00:45)
[2021-06-20] MEDS ORDERED: MULTIVITAMIN -ADULT INJECTION 10 ML, THIAMINE INJection 100 MG, FOLIC ACID 1 MG in NS 1... IV ONE (01:35)
[2021-06-20] MEDS ORDERED: NS 1,000 ML IV ONE ×2 (01:35)
[2021-06-20 01:39] LABS: RSV AMPLIFICATION NEGATIVE (NEGATIVE)
--- OUTSIDE RECORDS SUMMARY | 2021-06-20 04:19 | CCD ---
Author Author [facility] Organization [facility] Address Unknown Phone Unavailable Support Name Relationship Address [place] [address] [address] FELIZ UREÑA Next Of Kin [id number] [place] [address] SMC* Next Of Kin [address] [place] [address] DPAO Next Of Kin [address] [place] [address] [place] [address] HENNY BECERRA Next Of Kin [id number] [place] [address] CRACKER Next Of Kin [address] [place] [address] [facility] Next Of [place] [id number] HENNY GARCIA Next Of Kin [address] [place] [address] SPOKES Next Of Kin [address] [place] [address] OLIVEGARDE Next Of Kin [address] [place] [id number] VERIZON Next Of Kin [address] [place] [address] Unavailable BEST [place] [address] ST Next Of Kin Unknown Unavailable JOURNEY'[place] [address] INDIRA MOLINA Next Of Kin [address] [place] [address] [address] [place] [address] HENNY UREÑA Next Of Kin [address] [place] [address] [address] [place] [address] feliz ureña ECON Unknown Unavailable Henny Becerra ECON [address] [facility] [place] [address] Unavailable Care Team Providers Care Can Runner Name Role Phone LETTIERE, A SONG PA [...] LETTIERE, A SONG PA Unavailable Unavailable Green JUNIOR PROJECT COORDINATOR JUNIOR PROJECT COORDINATOR, Lexie Unavailable Unavailable Green JUNIOR PROJECT COORDINATOR JUNIOR PROJECT COORDINATOR, Lexie Unavailable Unavailable Green JUNIOR PROJECT COORDINATOR JUNIOR PROJECT COORDINATOR, Lexie Unavailable Unavailable Green JUNIOR PROJECT COORDINATOR JUNIOR PROJECT COORDINATOR, Lexie Unavailable Unavailable Green JUNIOR PROJECT COORDINATOR JUNIOR PROJECT COORDINATOR, Lexie Unavailable Unavailable Mosley, Nedra Reidn PA [...] Unavailable MCKEON, G EDWARD RPA Unavailable Unavailable MCKENO, G EDWARD RPA Unavailable Unavailable MCKEON, G [...] is protected by Article 27-F of the [facility] Public Health law. If you continue you may have access to information: Regarding HIV / AIDS; Provided by facilities licensed or operated by the [facility] Office of Mental Health; or Provided by the [facility] Office for People With Developmental Disabilities. If such information is present, then the following [facility] mandated warning applies: This information has been [...] law may result in a fine or residential sentence or both. A general authorization for the release of medical or other information is NOT sufficient authorization for further disc losure. Family History Family Member Name Family Member Gender Family Member Status Date o f Status Description Data Source(s) Unknown Female Diagnosis 03/08/2016 12:00:00 AM EDT [facility] ([facility]) Unknown Female Diagnosis 03/08/2016 12:00:00 AM EDT [facility] ([facility]) Encounters Encounter Providers Location Date Indications Data Source(s ) [place] [address] [address] 06/17/2021 12:00:00 AM EST [facility]CW1 ([facility]) [place] [address] [address] 06/10/2021 12:00:00 AM EST eCW1 ([facility]) [place] [address] [address] 05/23/2021 12:00:00 AM EST eCW1 ([facility]) [place] [address] [address] 05/23/2021 12:00:00 AM EST eCW1 ([facility]) [place] [address] [address] 05/03/2021 12:00:00 AM EDT eCW1 ([facility]) [place] [address] [address] 05/03/2021 12:00:00 AM EDT eCW1 ([facility]) [place] [address] [address] 05/02/2021 12:00:00 AM EDT eCW1 ([facility]) [place] [address] [address] 03/23/2021 12:00:00 AM EDT eCW1 ([facility]) [place] [address] [address] 03/02/2021 12:00:00 AM EDT [facility]) [place] [address] [place] [address] 02/23/2021 12:00:00 AM EDT [facility] Outpatient Attender: WESTON Godinez 02/07/2021 12:30:00 PM EDT MEDENT ([facility]) Outpatient Attender: TIARA MCKEON RPA 12/09 09:18:10 AM EDT - 12/09/2020 10:51:22 AM EDT DocuTap ([facility] ) Attender: Lexie [place] JUNIOR PROJECT COORDINATOR JUNIOR PROJECT COORDINATOR PPNCNY [place] 0 12/01/2020 03:06:00 PM EDT - 12/01/2020 03:06:00 PM EDT [facility] ([facility]) OFFICE VISIT, ESTOutpatient Attender: Lexie [place] JUNIOR PROJECT COORDINATOR JUNIOR PROJECT COORDINATOR PPNCCELIA [place] 11/24/2020 04:30:00 PM EDT - 11/24/2020 04:30:00 PM EDT Encntr screen for infections w sexl mode of transmissEncounter for surveillance of contraceptive pillsEncounter for oth general cnsl and advice on contraceptionOther sex counselingDysuriaUrgency of urinationFrequency of micturitionAcute cystitis without hematuria Next[facility] ([facility]) Encntr screen for infections w sexl mode of transmiss Encounter for surveillance of contracept katie pills Encounter for oth general cnsl and advic e on contraception Other sex counseling Dysuria Urgency of urination Frequency of micturition Acute cystitis without hematuria Outpatient Attender: SONG penaloza 10/22/2020 12:50:00 PM EDT MEDENT ([facility]) Unknown [address] [facility] [address] 10/01/2020 12:00:00 AM EDT eCW1 ([facility]) Unknown [address] [facility] [address] 10/01/2020 12:00:00 AM EDT eCW1 ([facility]) Outpatient [address] [facility] [address] 09/24/2020 12:00:00 AM EDT eCW1 ([facility]) (WC PROC) WCenter Procedure [address] [place] [address] 09/06/2020 12:00:00 AM EST eCW1 ([facility]) Outpatient Attender: Beatriz reyesy 08/17/2020 01:35:00 PM EST MEDENT ([facility]) Unknown [address] [facility] [place] [address] 07/29/2020 12:00:00 AM EST [facility]CW1 [facility]) [place] [address] [place] [address] 07/28/2020 12:00:00 AM EST eCW1 ([facility]) Unknown [address] [place] [address] 07/28/2020 12:00:00 AM EST eCW1 ([facility]) [place]patient [address] [address] 07/20/2020 12:00:00 AM EST eCW1 ([facility]) [place] [address] [address] 07/07/2020 12:00:00 AM EST eCW1 ([facility]) Unknown [address] [address] 07/07/2020 12:00:00 AM EST eCW1 ([facility]) Unknown [address] [place] [address] 05/31/2020 12:00:00 AM EST eCW1 ([facility]) Unknown [address] [place] [address] 05/28/2020 12:00:00 AM EST eCW1 ([facility]) [facility] [address] [address] 2020 12:00:00 AM EDT eCW1 ([facility]) Immunizations Vaccine Date Status Description Data Source(s) COVID-19 VACCINE Pfizer 07/20/2020 12:00:00 AM EST completed [facility]IS Vaccine Series Complete: YESThis Data wa s Submitted to [facility]. COVID-19 VACCINE Pfizer 06/29/2020 12:00:00 AM EST completed [facility]SIIS Vaccine Series Complete: NOThis Data was Submitted to [facility]. Medications Medication Brand Name Start Date Product Form Dose Route Admi nistrative Instructions Pharmacy Instructions Status Indications Reaction Description Data Source(s) Microgestin 1/20 1-20 MG-MCG Microgestin 07/28 1-20 MG-MCG 12:00:00 AM EST 1.0 {tablet} active Microgestin 07/28 1-20 MG-MCG eCW1 ([facility]) Paroxetine 20 MG Oral Tablet [Paxil] Paxil 20 MG Paxil 20 MG 03/02/2021 12:00:00 AM EDT 1.0 {tablet_in_the_morning} active Paxil 20 MG eCW1 ([facility]) buspirone hydrochloride 10 MG Oral Tablet busPIRone HC l 10 MG busPIRone HCl 10 MG 03/02/2021 12:00:00 AM EDT 1.0 {tablet} activ e busPIRone HCl 10 MG eCW1 ([facility]) buspirone hydrochloride 10 MG Oral Tablet busPIRone HC l 10 MG busPIRone HCl 10 MG 03/02/2021 12:00:00 AM EDT 1.0 {tablet} activ e busPIRone HCl 10 MG eCW1 ([facility]) buspirone hydrochloride 10 MG Oral Tablet busPIRone HC l 10 MG busPIRone HCl 10 MG 03/02/2021 12:00:00 AM EDT 1.0 {tablet} activ e busPIRone HCl 10 MG eCW1 ([facility]) Paroxetine 20 MG Oral Tablet [Paxil] Paxil 20 MG Paxil 20 MG 03/02/2021 12:00:00 AM EDT 1.0 {tablet_in_the_morning} active Paxil 20 MG eCW1 ([facility]) Paroxetine 20 MG Oral Tablet [Paxil] Paxil 20 MG Paxil 20 MG 03/02/2021 12:00:00 AM EDT 1.0 {tablet_in_the_morning} active Paxil 20 MG eCW1 ([facility]) buspirone hydrochloride 10 MG Oral Tablet busPIRone HC l 10 MG busPIRone HCl 10 MG 03/02/2021 12:00:00 AM EDT 1.0 {tablet} activ e busPIRone HCl 10 MG eCW1 ([facility]) buspirone hydrochloride 10 MG Oral Tablet busPIRone HC l 10 MG busPIRone HCl 10 MG 03/02/2021 12:00:00 AM EDT 1.0 {tablet} activ e busPIRone HCl 10 MG eCW1 ([facility]) Paroxetine 20 MG Oral Tablet [Paxil] Paxil 20 MG Paxil 20 MG 03/02/2021 12:00:00 AM EDT 1.0 {tablet_in_the_morning} active Paxil 20 MG eCW1 ([facility]) Paroxetine 20 MG Oral Tablet [Paxil] Paxil 20 MG Paxil 20 MG 03/02/2021 12:00:00 AM EDT 1.0 {tablet_in_the_morning} active Paxil 20 MG eCW1 ([facility]) Paroxetine 20 MG Oral Tablet [Paxil] Paxil 20 MG Paxil 20 MG 03/02/2021 12:00:00 AM EDT 1.0 {tablet_in_the_morning} active Paxil 20 MG eCW1 ([facility]) Paroxetine 20 MG Oral Tablet [Paxil] Paxil 20 MG Paxil 20 MG 03/02/2021 12:00:00 AM EDT 1.0 {tablet_in_the_morning} active Paxil 20 MG eCW1 ([facility]) buspirone hydrochloride 10 MG Oral Tablet busPIRone HC l 10 MG busPIRone HCl 10 MG 03/02/2021 12:00:00 AM EDT 1.0 {tablet} activ e busPIRone HCl 10 MG eCW1 ([facility]) buspirone hydrochloride 10 MG Oral Tablet busPIRone HC l 10 MG busPIRone HCl 10 MG 03/02/2021 12:00:00 AM EDT 1.0 {tablet} activ e busPIRone HCl 10 MG eCW1 ([facility]) Paroxetine 20 MG Oral Tablet [Paxil] Paxil 20 MG Paxil 20 MG 03/02/2021 12:00:00 AM EDT 1.0 {tablet_in_the_morning} active Paxil 20 MG eCW1 ([facility]) Paroxetine 20 MG Oral Tablet [Paxil] Paxil 20 MG Paxil 20 MG 03/02/2021 12:00:00 AM EDT 1.0 {tablet_in_the_morning} active Paxil 20 MG eCW1 ([facility]) buspirone hydrochloride 10 MG Oral Tablet busPIRone HC l 10 MG busPIRone HCl 10 MG 03/02/2021 12:00:00 AM EDT 1.0 {tablet} activ e busPIRone HCl 10 MG eCW1 ([facility]) buspirone hydrochloride 10 MG Oral Tablet busPIRone HC l 10 MG busPIRone HCl 10 MG 03/02/2021 12:00:00 AM EDT 1.0 {tablet} activ e busPIRone HCl 10 MG eCW1 ([facility]) 200 ACTUAT Albuterol 0.09 MG/ACTUAT Metered Dose Inhaler [Pr oAir] Proair HFA 02/07/2021 12:00:00 AM EDT ORAL active MEDENT ([facility]) NITROFURANTOIN, MACROCRYSTALS 25 MG / Ni trofurantoin, Monohydrate 75 MG Oral Capsule nitrofurantoin monohydrate/macrocrystals 100 mg capsule nitrofurantoin monohydrate/macrocrystals 100 mg capsule 11/24/2020 12:00:00 AM EDT completed 1 tab po BID x 5 days [facility] ([facility] Ketorolac Tromethamine 10 MG Oral Tablet Ketorolac Trometham ine 10 MG 07/28/2020 12:00:00 AM EST active Ketorol ac Tromethamine 10 MG eCW1 ([facility]) Ondansetron 4 MG Oral Tablet [Zofran] Zofran 4 MG Zofran 4 M G 07/28/2020 12:00:00 AM EST 1.0 {tablet} active Zo ernie 4 MG eCW1 ([facility]) Ondansetron 4 MG Oral Tablet [Zofran] Zofran 4 MG Zofran 4 M G 07/28/2020 12:00:00 AM EST 1.0 {tablet} active Zo ernie 4 MG eCW1 ([facility]) Ondansetron 4 MG Oral Tablet [Zofran] Zofran 4 MG Zofran 4 M G 07/28/2020 12:00:00 AM EST 1.0 {tablet} active Zo ernie 4 MG eCW1 ([facility]) Ketorolac Tromethamine 10 MG Oral Tablet Ketorolac Trometham ine 10 MG 07/28/2020 12:00:00 AM EST active Ketorol ac Tromethamine 10 MG eCW1 ([facility]) Ondansetron 4 MG Oral Tablet [Zofran] Zofran 4 MG Zofran 4 M G 07/28/2020 12:00:00 AM EST 1.0 {tablet} active Zo ernie 4 MG eCW1 ([facility]) Ondansetron 4 MG Oral Tablet [Zofran] Zofran 4 MG Zofran 4 M G 07/28/2020 12:00:00 AM EST 1.0 {tablet} active Zo ernie 4 MG eCW1 ([facility]) Ketorolac Tromethamine 10 MG Oral Tablet Ketorolac Trometham ine 10 MG 07/28/2020 12:00:00 AM EST active Ketorol ac Tromethamine 10 MG eCW1 ([facility]) Ketorolac Tromethamine 10 MG Oral Tablet Ketorolac Trometham ine 10 MG 07/28/2020 12:00:00 AM EST active Ketorol ac Tromethamine 10 MG eCW1 ([facility]) Ketorolac Tromethamine 10 MG Oral Tablet Ketorolac Trometham ine 10 MG 07/28/2020 12:00:00 AM EST active Ketorol ac Tromethamine 10 MG eCW1 ([facility]) Ketorolac Tromethamine 10 MG Oral Tablet Ketorolac Trometham ine 10 MG 07/28/2020 12:00:00 AM EST active Ketorol ac Tromethamine 10 MG eCW1 ([facility]) Ondansetron 4 MG Oral Tablet [Zofran] Zofran 4 MG Zofran 4 M G 07/28/2020 12:00:00 AM EST 1.0 {tablet} active Zo ernie 4 MG eCW1 ([facility]) Ondansetron 4 MG Oral Tablet [Zofran] Zofran 4 MG Zofran 4 M G 07/28/2020 12:00:00 AM EST 1.0 {tablet} active Zo ernie 4 MG eCW1 ([facility]) Ondansetron 4 MG Oral Tablet [Zofran] Zofran 4 MG Zofran 4 M G 07/28/2020 12:00:00 AM EST 1.0 {tablet} active Zo ernie 4 MG eCW1 ([facility]) Ketorolac Tromethamine 10 MG Oral Tablet Ketorolac Trometham ine 10 MG 07/28/2020 12:00:00 AM EST active Ketorol ac Tromethamine 10 MG eCW1 ([facility]) Ketorolac Tromethamine 10 MG Oral Tablet Ketorolac Trometham ine 10 MG 07/28/2020 12:00:00 AM EST active Ketorol ac Tromethamine 10 MG eCW1 ([facility]) Ketorolac Tromethamine 10 MG Oral Tablet Ketorolac Trometham ine 10 MG 07/28/2020 12:00:00 AM EST active Ketorol ac Tromethamine 10 MG eCW1 ([facility]) Ketorolac Tromethamine 10 MG Oral Tablet Ketorolac Trometham ine 10 MG 07/28/2020 12:00:00 AM EST active Ketorol ac Tromethamine 10 MG eCW1 ([facility]) Ketorolac Tromethamine 10 MG Oral Tablet Ketorolac Trometham ine 10 MG 07/28/2020 12:00:00 AM EST active Ketorol ac Tromethamine 10 MG eCW1 ([facility]) Ketorolac Tromethamine 10 MG Oral Tablet Ketorolac Trometham ine 10 MG 07/28/2020 12:00:00 AM EST active Ketorol ac Tromethamine 10 MG eCW1 ([facility]) Ondansetron 4 MG Oral Tablet [Zofran] Zofran 4 MG Zofran 4 M G 07/28/2020 12:00:00 AM EST 1.0 {tablet} active Zo ernie 4 MG eCW1 ([facility]) Ketorolac Tromethamine 10 MG Oral Tablet Ketorolac Trometham ine 10 MG 07/28/2020 12:00:00 AM EST active Ketorol ac Tromethamine 10 MG eCW1 ([facility]) Ondansetron 4 MG Oral Tablet [Zofran] Zofran 4 MG Zofran 4 M G 07/28/2020 12:00:00 AM EST 1.0 {tablet} active Zo ernie 4 MG eCW1 ([facility]) Ketorolac Tromethamine 10 MG Oral Tablet Ketorolac Trometham ine 10 MG 07/28/2020 12:00:00 AM EST active Ketorol ac Tromethamine 10 MG eCW1 ([facility]) Ondansetron 4 MG Oral Tablet [Zofran] Zofran 4 MG Zofran 4 M G 07/28/2020 12:00:00 AM EST 1.0 {tablet} active Zo ernie 4 MG eCW1 ([facility]) Ketorolac Tromethamine 10 MG Oral Tablet Ketorolac Trometham ine 10 MG 07/28/2020 12:00:00 AM EST active Ketorol ac Tromethamine 10 MG eCW1 ([facility]) Ondansetron 4 MG Oral Tablet [Zofran] Zofran 4 MG Zofran 4 M G 07/28/2020 12:00:00 AM EST 1.0 {tablet} active Zo ernie 4 MG eCW1 ([facility]) Ondansetron 4 MG Oral Tablet [Zofran] Zofran 4 MG Zofran 4 M G 07/28/2020 12:00:00 AM EST 1.0 {tablet} active Zo ernie 4 MG eCW1 ([facility]) Ketorolac Tromethamine 10 MG Oral Tablet Ketorolac Trometham ine 10 MG 07/28/2020 12:00:00 AM EST active Ketorol ac Tromethamine 10 MG eCW1 ([facility]) Ketorolac Tromethamine 10 MG Oral Tablet Ketorolac Trometham ine 10 MG 07/28/2020 12:00:00 AM EST active Ketorol ac Tromethamine 10 MG eCW1 ([facility]) Ketorolac Tromethamine 10 MG Oral Tablet Ketorolac Trometham ine 10 MG 07/28/2020 12:00:00 AM EST active Ketorol ac Tromethamine 10 MG eCW1 ([facility]) Ondansetron 4 MG Oral Tablet [Zofran] Zofran 4 MG Zofran 4 M G 07/28/2020 12:00:00 AM EST 1.0 {tablet} active Zo ernie 4 MG eCW1 ([facility]) Ondansetron 4 MG Oral Tablet [Zofran] Zofran 4 MG Zofran 4 M G 07/28/2020 12:00:00 AM EST 1.0 {tablet} active Zo ernie 4 MG eCW1 ([facility]) Ondansetron 4 MG Oral Tablet [Zofran] Zofran 4 MG Zofran 4 M G 07/28/2020 12:00:00 AM EST 1.0 {tablet} active Zo ernie 4 MG eCW1 ([facility]) Ondansetron 4 MG Oral Tablet [Zofran] Zofran 4 MG Zofran 4 M G 07/28/2020 12:00:00 AM EST 1.0 {tablet} active Zo ernie 4 MG eCW1 ([facility]) Ketorolac Tromethamine 10 MG Oral Tablet Ketorolac Trometham ine 10 MG 07/28/2020 12:00:00 AM EST active Ketorol ac Tromethamine 10 MG eCW1 ([facility]) Ondansetron 4 MG Oral Tablet [Zofran] Zofran 4 MG Zofran 4 M G 07/28/2020 12:00:00 AM EST 1.0 {tablet} active Zo ernie 4 MG eCW1 ([facility]) Ondansetron 4 MG Oral Tablet [Zofran] Zofran 4 MG Zofran 4 M G 07/28/2020 12:00:00 AM EST 1.0 {tablet} active Zo ernie 4 MG eCW1 ([facility]) MICROGESTIN 20 TABS 21S WHITE norethindrone ac-eth estradi ol 03/22/2017 12:00:00 AM EDT completed TAKE 1 TABLET BY MOUTH DAILY FOR CONTINUOUS USE [facility] ([facility]) Insurance Providers Payer name Policy type / Coverage type Policy ID Covered alliance party ID Covered alliance party's relationship to bruner Policy Brun[place] Plan Information [place]BS [place] 302/307 [id number] [employer] Blue Cross and Blue Shield - [place] Blue Cross/B lue Shield [id number] Self [id number] [facility] [id number] self [id number] [facility] [employer] [id number] Self [id number] SELF PAY ONLY [id number] SP [id number] BCBS [place] PPO 302/307 [id number] SP [id number] EX[employer] BCBS B [id number] S VYS [id number] [place]BS [place] PPO 302/307 [id number] SP [id number] BCBS [place] PPO 302/307 [id number] SP [id number] O BLUE YNC [id number] SP [id number] ANSI-Commercial [id number] ANSI-Commercial [id number] ANSI-Commercial [id number] BCBS/[place] Commercial [id number] Self [id number] ANSI-Commercial [id number] ANSI-Commercial [id number] BCBS/[place] Commercial [id number] Self [id number] ANSI-Commercial [id number] BCBS/[place] Commercial [id number] Family Dependent [id number] ANSI-Commercial [id number] [place] [id number] Self Y [id number] [place] Commercial [id number] Self Y [id number] [place] [id number] Self Y [id number] [facility] [id number] SP [id number] BCBS [place] PPO 302/307 [id number] SP [id number] BCBS/[place] Commercial [id number] Family Dependent [id number] BCBS/[place] Commercial [id number] Family Dependent [id number] [place] Commercial [id number] Self Y [id number] [place] Commercial [id number] Self Y [id number] [place] Commercial [id number] Self Y [id number] [place] Commercial [id number] Self Y [id number] [place] Commercial [id number] Self Y [id number] [place] Commercial [id number] Self Y [id number] [place] Commercial [id number] Self Y [id number] SELF PAY ONLY [id number] SP [id number] [place] 305/805 [id number] MO2 [id number] [place]BS [place] 305/805 [id number] SP [id number] BCBS [place] 304/804 [id number] MO2 [id number] BCBS [place] 304/804 [id number] FA2 [id number] ANSI-Not a Secondary Insurance [id number] BCBS [place] HMO [id number] SP [id number] BCBS [place] PPO 302/307 [id number] SP [id number] SELF PAY [place] BC-BS PPO 306 [id number] SP [id number] Problems, Conditions, and Diagnoses Code Display Name Description Problem Type Effective Dates Data Source(s) G89.29 [id number] Other chronic pain Problem 09/24/2020 12:00: 00 AM EDT eCW1 ([facility]) N87.0 [id number] Dysplasia of cervix, low grade (RICK 1) Pr oblem 07/20/2020 12:00:00 AM EST eCW1 ([facility]) N92.1 [id number] Breakthrough bleeding on control pi lls Problem 07/20/2020 12:00:00 AM EST eCW1 ([facility]) Surgeries/Procedures Procedure Description Date Indications Data Source(s) OFFICE OUTPATIENT VISIT 15 MINUTES 02/07/2021 12:00:00 AM EDT MEDENT ([facility]) 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 STI / H 11/24/2020 12:00:00 AM EDT - 11/24/2020 12:00:00 AM EDT [facility] ([facility]) 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 Other 11/24/2020 12:00:00 AM EDT - 2020 12:00:00 AM EDT [facility] ([facility]) 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 Contraceptive 11/24/2020 12 :00:00 AM EDT - 11/24/2020 12:00:00 AM EDT [facility] ([facility]) CVR Med.Svc. Height/Weight 11/24/2020 12 :00:00 AM EDT - 11/24/2020 12:00:00 AM EDT [facility] ([facility]) CVR Blood Pressure 11/24/2020 12:00:00 AM EDT - 2020 12:00:00 AM EDT [facility] ([facility]) N.GONORRHOEAE, URINE 11/24/2020 12:00:00 AM EDT - 11/24/2020 12:00:00 AM EDT [facility] ([facility]) CHYLMD TRACH, URINE 11/24/2020 12:00:00 AM EDT - 11/24 12:00:00 AM EDT [facility] ([facility]) URINE CULTURE/COLONY COUNT 11/24/2020 12 :00:00 AM EDT - 11/24/2020 12:00:00 AM EDT [facility] ([facility]) OFFICE VISIT, EST 11/24/2020 12:00:00 AM EDT - 021 12:00:00 AM EDT [facility] ([facility]) URINALYSIS NONAUTO W/O SCOPE 11/24/2020 12:00:00 AM EDT - 11/24/2020 12:00:00 AM EDT [facility] PERIODIC PREVENTIVE MED EST PATIENT 18-39 YRS 10/23/19 12:00:00 AM EDT [facility] ([facility], [facility]) Medication: Ferric subsulfate topical solution (MONSELS) 8M L 09/06/2020 12:00:00 AM EST eCW1 ([facility]) OFFICE OUTPATIENT VISIT 15 MINUTES 08/17/2020 12:00:00 AM EST [facility] ([facility], [facility]) Results ID Date Data Source [id number] 02/07/2021 12:00:00 AM EDT [facility] Name Value Range Interpretation Code Description Data Kanika rce(s) Supporting Document(s) SARS-CoV2 Rapid Antigen Negative [facility] This lab was reported by [facility]. ID Date Data Source [id number] 11/24/2020 04:59:28 PM EDT NextGen ([facility]) Name Value Range Interpretation Code Description Data Kanika rce(s) Supporting Document(s) Color: yellow; Glucose: nega tive; Blood: trace; pH: 6.0; Protein: small; Nitrite: positive; Leukocytes: trace Abnormal (applies to non-numeric results) Urine Dipstick NextGen ([facility]) ID Date Data Source SMC SPINE LS COMPLETE 09/24/2020 12:00:00 AM EDT eCW1 ([facility]) Name Value Range Interpretation Code Description Data Kanika rce(s) Supporting Document(s) SMC SPINE LS COMPLETE eCW1 ([facility]) ID Date Data Source [id number] 09/10/2020 11:00:00 AM EST [facility] Name Value Range Interpretation Code Description Data Kanika rce(s) Supporting Document(s) SARS coronavirus 2 [facility] Not [facility]ed [facility] This lab was ordered by [facility] and reported by [facility]. ID Date Data Source [id number] 08/17/2020 12:00:00 AM EST [facility] Name Value Range Interpretation Code Description Data Kanika rce(s) Supporting Document(s) SARS-CoV2 Rapid Antigen Negative [facility] This lab was reported by [facility]. ID Date Data Source FREE T4 & TSH PANEL 07/28/2020 12:00:00 AM EST eCW1 ([facility]) Name Value Range Interpretation Code Description Data Kanika rce(s) Supporting Document(s) 0.996 0.358-3.740 eCW1 ([facility]) 0.97 0.76-1.46 eCW1 ([facility]) ID Date Data Source ERYTHROCYTE SEDIMENTATION RATE 07/28/2020 12:00:00 AM EST eC W1 ([facility]) Name Value Range Interpretation Code Description Data Kanika rce(s) Supporting Document(s) 7 0-20 eCW1 ([facility]) ID Date Data Source Comprehensive Metabolic Profile (CMP) 07/28/2020 12:00:00 AM EST eCW1 ([facility]) Name Value Range Interpretation Code Description Data Kanika rce(s) Supporting Document(s) 77 70-100 eCW1 ([facility]) 0.86 0.55-1.30 eCW1 ([facility]) > 60.0 >60 eCW1 ([facility]) 10 7-18 eCW1 ([facility]) 106 98-107 eCW1 ([facility]) 4.2 3.5-5.1 eCW1 ([facility]) 29 21-32 eCW1 ([facility]) 137 136-145 eCW1 ([facility]) 17 7-37 eCW1 ([facility]) 29 12-78 eCW1 ([facility]) 80 45-117 eCW1 ([facility]) 0.2 0.2-1.0 eCW1 ([facility]) 8.8 8.5-10.1 eCW1 ([facility]) 3.8 3.2-5.2 eCW1 ([facility]) 1.1 1.2-2.2 eCW1 ([facility]) 7.2 6.4-8.2 eCW1 ([facility]) ID Date Data Source CBC - Complete Blood Count 07/28/2020 12:00:00 AM EST eCW1 ( [facility]) Name Value Range Interpretation Code Description Data Kanika rce(s) Supporting Document(s) 4.55 4.00-5.40 eCW1 ([facility]) 7.9 4.0-10.0 eCW1 ([facility]) 13.5 12.0-15.5 eCW1 ([facility]) 41.1 36.0-47.0 eCW1 ([facility]) 29.7 27.0-33.0 eCW1 ([facility]) 90.3 80.0-96.0 eCW1 ([facility]) 32.8 32.0-36.5 eCW1 ([facility]) 12.6 11.5-14.5 eCW1 ([facility]) 301 150-450 eCW1 ([facility]) ID Date Data Source PAP REQUEST FOR SERVICE 07/20/2020 12:00:00 AM EST eCW1 ([facility]) Name Value Range Interpretation Code Description Data Kanika rce(s) Supporting Document(s) PAP REQUEST FOR SERVICE eCW1 ( [facility]) ID Date Data Source [id number] 06/15/2020 12:00:00 AM EST [facility] Name Value Range Interpretation Code Description Data Kanika rce(s) Supporting Document(s) 2019-nCoV RNA XXX LEISA+probe-Imp [facility] This lab was ordered by [facility] and reported by [employer] ID Date Data Source [id number] 06/07/2020 12:00:00 AM EST [facility] Name Value Range Interpretation Code Description Data Kanika rce(s) Supporting Document(s) SARS coronavirus 2 RNA [Presence] in Res piratory specimen by LEISA with probe detection [facility] This lab was ordered by [facility] and reported by [employer]. ID Date Data Source [id number] 04/24/2020 12:00:00 AM EDT [facility] Name Value Range Interpretation Code Description Data Kanika rce(s) Supporting Document(s) 2019-nCoV RNA XXX LEISA+probe-Imp [facility] This lab was ordered by [facility] and reported by [employer] Procedure Social History Code Duration Value Status Description Data Source(s ) Smoking 02/07/2021 12:00:00 AM EDT Patient has never smoked co mpleted Patient has never smoked MEDENT ([facility]) Smoking 12/01/2020 12:00:00 AM EDT Never smoker completed Never s moker NextGen ([facility]) 11/24/2020 12:00:00 AM EDT Current non-smoker completed C urrent non-smoker NextGen ([facility]) Smoking 09/24/2020 12:00:00 AM EDT Never Smoker completed Never S moker eCW1 ([facility]) Smoking 09/24/2020 12:00:00 AM EDT Never Smoker completed Never S moker eCW1 ([facility]) Smoking 09/24/2020 12:00:00 AM EDT Never Smoker completed Never S moker eCW1 ([facility]) Smoking 09/24/2020 12:00:00 AM EDT Never Smoker completed Never S moker eCW1 ([facility]) Smoking 09/24/2020 12:00:00 AM EDT Never Smoker completed Never S moker eCW1 ([facility]) Smoking 09/24/2020 12:00:00 AM EDT Never Smoker completed Never S moker eCW1 ([facility]) Smoking 09/24/2020 12:00:00 AM EDT Never Smoker completed Never S moker eCW1 ([facility]) Smoking 09/24/2020 12:00:00 AM EDT Never Smoker completed Never S moker eCW1 ([facility]) Smoking 09/24/2020 12:00:00 AM EDT Never Smoker completed Never S moker eCW1 ([facility]) Smoking 09/24/2020 12:00:00 AM EDT Never Smoker completed Never S moker eCW1 ([facility]) Smoking 09/24/2020 12:00:00 AM EDT Never Smoker completed Never S moker eCW1 ([facility]) Smoking 09/24/2020 12:00:00 AM EDT Never Smoker completed Never S moker eCW1 ([facility]) Smoking 09/24/2020 12:00:00 AM EDT Never Smoker completed Never S moker eCW1 ([facility]) Smoking 09/06/2020 12:00:00 AM EST Never Smoker completed Never S moker eCW1 ([facility]) Smoking 07/28/2020 12:00:00 AM EST Never Smoker completed Never S moker eCW1 ([facility]) Smoking 07/28/2020 12:00:00 AM EST Never Smoker completed Never S moker eCW1 ([facility]) Smoking 07/28/2020 12:00:00 AM EST Never Smoker completed Never S moker eCW1 ([facility]) Smoking 07/28/2020 12:00:00 AM EST Never Smoker completed Never S moker eCW1 ([facility]) Smoking 07/28/2020 12:00:00 AM EST Never Smoker completed Never S moker eCW1 ([facility]) Smoking 07/20/2020 12:00:00 AM EST Never Smoker completed Never S moker eCW1 ([facility]) Smoking 05/24/2020 12:00:00 AM EST Never Smoker completed Never S moker eCW1 ([facility]) Smoking 05/24/2020 12:00:00 AM EST Never Smoker completed Never S moker eCW1 ([facility]) Vital Signs ID Date Data Source UNK Name Value Range Interpretation Code Description Data Source(s) Systolic blood pressure 115 mm[Hg] 115 mm[Hg] EDENT ([facility]) Diastolic blood pressure 76 mm[Hg] 76 mm[Hg] [facility] Heart rate 84 /min 84 /min [facility], [facility]) Respiratory rate 12 /min 12 /min [facility] ( [facility]) Oxygen saturation in Arterial blood by Pulse oximetry 99 % 99 % [facility] ([facility]) Body temperature 97.3 [degF] 97.3 [degF] [facility] ([facility]) Body mass index (BMI) [Ratio] 30.2 kg/m2 30.2 k g/m2 [facility] ([facility]) Body height 62 [in_i] 62 [in_i] MEDENT ([facility]) 5'2" Body weight 165.00 [lb_av] 165.00 [lb_av] MEDEN T ([facility], [facility]) Body height 157.48 cm 157.48 cm [facility]Gen ([facility]) Systolic blood pressure 118 mm[Hg] 118 mm[Hg] N extGen ([facility]) Diastolic blood pressure 78 mm[Hg] 78 mm[Hg] NextGen ([facility]) Body mass index (BMI) [Ratio] 32.56 kg/m2 Overweight 32.56 kg/m2 NextGen ([facility]) Body weight 80.739 kg 80.739 kg NextGen ([facility]) Heart rate 98 /min 98 /min MEDENT ([facility], [facility]) Respiratory rate 16 /min 16 /min MEDENT ( [facility], [facility]) Oxygen saturation in Arterial blood by Pulse oximetry 98 % 98 % MEDENT ([facility], [facility]) Body mass index (BMI) [Ratio] 30.2 kg/m2 30.2 k g/m2 MEDENT ([facility], [facility]) Body weight 165.00 [lb_av] 165.00 [lb_av] MEDEN T ([facility], [facility]) Body temperature 97.3 [degF] 97.3 [degF] MEDENT ([facility], [facility]) Diastolic blood pressure 77 mm[Hg] 77 mm[Hg] MEDENT ([facility], [facility]) Systolic blood pressure 112 mm[Hg] 112 mm[Hg] M EDENT ([facility], [facility]) Body height 62 [in_i] 62 [in_i] MEDENT ([facility], [facility]) 5'2" Body weight 170.4 [lb_av] 170.4 [lb_av] eCW1 ([facility]) Body height [in_i] eCW1 ([facility]) Body mass index (BMI) [Ratio] 30.18 kg/m2 30.18 kg/m2 eCW1 ([facility]) Heart rate 104 /min 104 /min eCW1 ([facility]) Respiratory rate 18 /min 18 /min eCW1 ([facility]) Body temperature 99.2 [degF] 99.2 [degF] eCW1 ( [facility]) Systolic blood pressure 130 mm[Hg] 130 mm[Hg] e CW1 ([facility]) Diastolic blood pressure 80 mm[Hg] 80 mm[Hg] eCW1 ([facility]) Body mass index (BMI) [Ratio] 29.76 kg/m2 29.76 kg/m2 eCW1 ([facility]) Systolic blood pressure 120 mm[Hg] 120 mm[Hg] e CW1 ([facility]) Diastolic blood pressure 76 mm[Hg] 76 mm[Hg] eCW1 ([facility]) Body weight 168 [lb_av] 168 [lb_av] eCW1 ([facility]) Body weight 76.2 kg 76.2 kg eCW1 ([facility]) Body height [in_i] eCW1 ([facility]) Respiratory rate 16 /min 16 /min MEDENT ( [facility], [facility]) Oxygen saturation in Arterial blood by Pulse oximetry 98 % 98 % MEDENT ([facility], [facility]) Body temperature 97.3 [degF] 97.3 [degF] MEDENT ([facility], [facility]) Body weight 160.00 [lb_av] 160.00 [lb_av] MEDEN T ([facility], [facility]) Systolic blood pressure 102 mm[Hg] 102 mm[Hg] M EDENT ([facility], [facility]) Diastolic blood pressure 70 mm[Hg] 70 mm[Hg] MEDENT ([facility], [facility]) Heart rate 100 /min 100 /min MEDENT ([facility], [facility]) Body weight 167.6 [lb_av] 167.6 [lb_av] eCW1 ([facility]) Body height [in_i] eCW1 ([facility]) Body mass index (BMI) [Ratio] 29.69 kg/m2 29.69 kg/m2 eCW1 ([facility]) Heart rate 54 /min 54 /min eCW1 ([facility]) Respiratory rate 18 /min 18 /min eCW1 ([facility]) Body temperature 97.8 [degF] 97.8 [degF] eCW1 ( [facility]) Systolic blood pressure 120 mm[Hg] 120 mm[Hg] e CW1 ([facility]) Diastolic blood pressure 70 mm[Hg] 70 mm[Hg] eCW1 ([facility]) Body weight 162 [lb_av] 162 [lb_av] eCW1 ([facility]) Body weight 73.48 kg 73.48 kg eCW1 ([facility]) Body height [in_i] eCW1 ([facility]) Body mass index (BMI) [Ratio] 28.69 kg/m2 28.69 kg/m2 eCW1 ([facility]) Systolic blood pressure 113 mm[Hg] 113 mm[Hg] e CW1 ([facility]) Diastolic blood pressure 69 mm[Hg] 69 mm[Hg] eCW1 ([facility]) Body weight 168.8 [lb_av] 168.8 [lb_av] eCW1 ([facility]) Body height [in_i] eCW1 ([facility]) Body mass index (BMI) [Ratio] 29.90 kg/m2 29.90 kg/m2 eCW1 ([facility]) Heart rate 107 /min 107 /min eCW1 ([facility]) Respiratory rate 18 /min 18 /min eCW1 ([facility]) Body temperature 97.8 [degF] 97.8 [degF] eCW1 ( [facility]) Systolic blood pressure 120 mm[Hg] 120 mm[Hg] e CW1 ([facility]) Diastolic blood pressure 70 mm[Hg] 70 mm[Hg] eCW1 ([facility]) Patient Treatment Plan of Care Planned Activity Planned Date Details Description Data Source (s) Microgestin 07/28 1-20 MG-MCG 06/17/2021 12:00:00 AM EST eCW1 ([facility]) Paroxetine 20 MG Oral Tablet [Paxil] 03/02/2021 12:00:00 AM EDT eCW1 ([facility]) buspirone hydrochloride 10 MG Oral Tablet 03/02/2021 12:00:00 AM ED T eCW1 ([facility]) Paroxetine 20 MG Oral Tablet [Paxil] 03/02/2021 12:00:00 AM EDT eCW1 ([facility]) buspirone hydrochloride 10 MG Oral Tablet 03/02/2021 12:00:00 AM ED T eCW1 ([facility]) Paroxetine 20 MG Oral Tablet [Paxil] 03/02/2021 12:00:00 AM EDT eCW1 ([facility]) buspirone hydrochloride 10 MG Oral Tablet 03/02/2021 12:00:00 AM ED T eCW1 ([facility]) Paroxetine 20 MG Oral Tablet [Paxil] 03/02/2021 12:00:00 AM EDT eCW1 ([facility]) buspirone hydrochloride 10 MG Oral Tablet 03/02/2021 12:00:00 AM ED T eCW1 ([facility]) Paroxetine 20 MG Oral Tablet [Paxil] 03/02/2021 12:00:00 AM EDT eCW1 ([facility]) buspirone hydrochloride 10 MG Oral Tablet 03/02/2021 12:00:00 AM ED T eCW1 ([facility]) Paroxetine 20 MG Oral Tablet [Paxil] 03/02/2021 12:00:00 AM EDT eCW1 ([facility]) buspirone hydrochloride 10 MG Oral Tablet 03/02/2021 12:00:00 AM ED T eCW1 ([facility]) Paroxetine 20 MG Oral Tablet [Paxil] 03/02/2021 12:00:00 AM EDT eCW1 ([facility]) buspirone hydrochloride 10 MG Oral Tablet 03/02/2021 12:00:00 AM ED T eCW1 ([facility]) Paroxetine 20 MG Oral Tablet [Paxil] 03/02/2021 12:00:00 AM EDT eCW1 ([facility]) buspirone hydrochloride 10 MG Oral Tablet 03/02/2021 12:00:00 AM ED T eCW1 ([facility]) buspirone hydrochloride 10 MG Oral Tablet 03/02/2021 12:00:00 AM ED T eCW1 ([facility]) Paroxetine 20 MG Oral Tablet [Paxil] 03/02/2021 12:00:00 AM EDT eCW1 ([facility]) NITROFURANTOIN, MACROCRYSTALS 25 MG / Ni trofurantoin, Monohydrate 75 MG Oral Capsule 11/24/2020 12:00:00 AM EDT NextG en ([facility]) Ketorolac Tromethamine 10 MG Oral Tablet 07/28/2020 12:00:00 AM EST eCW1 ([facility]) Ondansetron 4 MG Oral Tablet [Zofran] 07/28/2020 12:00:00 AM EST eCW1 ([facility]) Ketorolac Tromethamine 10 MG Oral Tablet 07/28/2020 12:00:00 AM EST eCW1 ([facility]) Ondansetron 4 MG Oral Tablet [Zofran] 07/28/2020 12:00:00 AM EST eCW1 ([facility]) Ketorolac Tromethamine 10 MG Oral Tablet 07/28/2020 12:00:00 AM EST eCW1 ([facility]) Ondansetron 4 MG Oral Tablet [Zofran] 07/28/2020 12:00:00 AM EST eCW1 ([facility]) Ketorolac Tromethamine 10 MG Oral Tablet 07/28/2020 12:00:00 AM EST eCW1 ([facility]) Ondansetron 4 MG Oral Tablet [Zofran] 07/28/2020 12:00:00 AM EST eCW1 ([facility]) Ketorolac Tromethamine 10 MG Oral Tablet 07/28/2020 12:00:00 AM EST eCW1 ([facility]) Ondansetron 4 MG Oral Tablet [Zofran] 07/28/2020 12:00:00 AM EST eCW1 ([facility]) MICROGESTIN 07/28 TABS 21S WHITE 03/22/2017 12:00:00 AM EDT NextGen ([facility])
[2021-06-20] MEDS ORDERED: PARO20TA4 PO (07:17)
--- NOTE | 2021-06-20 07:57 | ECGEPIP ---
[facility] - ED Test Date: 2021-06-20 Pat Name: BENITO UREÑA Department: Room: - Gender: Female [employer]: ABDIRAHMAN : 1990 Requested By: TADEO Polo Order Number: [id number] Reading MD: Raffaele Whitt Measurements Intervals [place] Rate: 121 P: 62 [place]: 152 QRS: 19 QRSD: 80 T: 37 QT: 316 QTc: 448 Interpretive Statements Sinus tachycardia NO PRIORS FOR COMPARISON Electronically Signed on 06-20-2021 7:56:58 EST by Raffaele Whitt
[2021-06-20] MEDS ORDERED: MED NOTE (08:17)
[2021-06-20] MEDS ORDERED: HOME MED LIST COMPLETE! XX SCH (08:20)
--- OUTSIDE RECORDS SUMMARY | 2021-06-20 08:32 | CCD ---
Author Author [facility] Organization [facility] Address Unknown Phone Unavailable Support Name Relationship Address [place] [address] [address] FELIZ UREÑA Next Of Kin [id number] [place] [address] SMC* Next Of Kin [address] [place] [address] DPAO Next Of Kin [address] [place] [address] CRACKER [place] [address] HENNY BECERRA Next Of Kin [id number] [place] [address] CRACKER Next Of Kin [address] [place] [address] [facility] Next Of Kin [place] [id number] HENNY GARCIA Next Of Kin [address] [place] [address] SPOKES Next Of Kin [address] [place] [address] OLIVEGARDE Next Of Kin [address] [place] [id number] VERIZON Next Of Kin [address] [place] [address] Unavailable BEST [place] [address] ST Next Of Kin Unknown Unavailable JOURNEY'[place] [address] INDIRA MOLINA Next Of Kin [address] [place] [address] [address] [place] [address] HENNY UREÑA Next Of Kin [address] [place] [address] [address] [place] [address] feliz ureña ECON Unknown Unavailable Henny Becerra ECON [address] [facility] [place] [address] Unavailable Care Team Providers Care Manager Game Name Role Phone LETTIERE, A SONG PA [...] LETTIERE, A SONG PA Unavailable Unavailable Green AS400 ANALYST AS400 ANALYST, Lexie Unavailable Unavailable Green AS400 ANALYST AS400 ANALYST, Lexie Unavailable Unavailable Green AS400 ANALYST AS400 ANALYST, Lexie Unavailable Unavailable Green AS400 ANALYST AS400 ANALYST, Lexie Unavailable Unavailable Green AS400 ANALYST AS400 ANALYST, Lexie Unavailable Unavailable Mosley, Nedra Reidn PA [...] is protected by Article 27-F of the [facility] Public Health law. If you continue you may have access to information: Regarding HIV / AIDS; Provided by facilities licensed or operated by the [facility] Office of Mental Health; or Provided by the [facility] Office for People With Developmental Disabilities. If such information is present, then the following [facility] mandated warning applies: This information has [...] law may result in a fine or senior living sentence or both. A general authorization for the release of medical or other information is NOT sufficient authorization for further disc losure. Family History Family Member Name Family Member Gender Family Member Status Date o f Status Description Data Source(s) Unknown Female Diagnosis 03/08/2016 12:00:00 AM EDT [facility] ([facility]) Unknown Female Diagnosis 03/08/2016 12:00:00 AM EDT [facility]Gen ([facility]) Encounters Encounter Providers Location Date Indications Data Source(s ) [place] [address] [facility] [address] 06/17/2021 12:00:00 AM EST [facility]CW1 ([facility]) [place] [address] [facility] [address] 06/10/2021 12:00:00 AM EST eCW1 ([facility]) [place] [address] [facility] [address] 05/23/2021 12:00:00 AM EST eCW1 ([facility]) [place] [address] [facility] [address] 05/23/2021 12:00:00 AM EST eCW1 ([facility]) [place] [address] [facility] [address] 05/03/2021 12:00:00 AM EDT eCW1 ([facility]) [place] [address] [facility] [address] 05/03/2021 12:00:00 AM EDT eCW1 ([facility]) [place] [address] [facility] [address] 05/02/2021 12:00:00 AM EDT eCW1 ([facility]) [place] [address] [facility] [address] 03/23/2021 12:00:00 AM EDT eCW1 ([facility]) [place] [address] [facility] [address] 03/02/2021 12:00:00 AM EDT [facility] [place] [address] [facility] [address] 02/23/2021 12:00:00 AM EDT [facility] Outpatient Attender: WESTON Godinez 02/07/2021 12:30:00 PM EDT MEDENT ([facility]) Outpatient Attender: TIARA MCKEON RPA 12/09 09:18:10 AM EDT - 12/09/2020 10:51:22 AM EDT DocuTap ([facility] ) Attender: Lexie Hampton AS400 ANALYST AS400 ANALYST PPNCNY [facility] 0 12/01/2020 03:06:00 PM EDT - 12/01/2020 03:06:00 PM EDT NextGen ([facility]) OFFICE VISIT, ESTOutpatient Attender: Lexie Hampton AS400 ANALYST AS400 ANALYST PPNCCELIA [facility] 11/24/2020 04:30:00 PM EDT - 11/24/2020 04:30:00 PM EDT Encntr screen for infections w sexl mode of transmissEncounter for surveillance of contraceptive pillsEncounter for oth general cnsl and advice on contraceptionOther sex counselingDysuriaUrgency of urinationFrequency of micturitionAcute cystitis without hematuria NextGen ([facility]) Encntr screen for infections w sexl mode of transmiss Encounter for surveillance of contracept katie pills Encounter for oth general cnsl and advic e on contraception Other sex counseling Dysuria Urgency of urination Frequency of micturition Acute cystitis without hematuria Outpatient Attender: SONG penaloza 10/22/2020 12:50:00 PM EDT MEDENT ([facility]) Unknown [address] [facility] [address] 10/01/2020 12:00:00 AM EDT [facility] [place] Unknown [address] [facility] [address] 10/01/2020 12:00:00 AM EDT [facility]CW[facility] ([facility] [place]) Outpatient [address] [facility] [address] 09/24/2020 12:00:00 AM EDT eCW1 ([facility] [place]) (WC PROC) WCenter Procedure [address] [place] [address] 09/06/2020 12:00:00 AM EST eCW1 ([facility]) Outpatient Attender: Beatriz reyesy 08/17/2020 01:35:00 PM EST MEDENT ([facility]) Unknown [address] [facility] [place] [address] 07/29/2020 12:00:00 AM EST [facility] [place] [address] [facility] [address] 07/28/2020 12:00:00 AM EST [facility] Unknown [address] [facility] [address] 07/28/2020 12:00:00 AM EST [facility] Outpatient [address] [facility] [address] 07/20/2020 12:00:00 AM EST [facility]CW[facility] Out[place] [address] [facility] [address] 07/07/2020 12:00:00 AM EST [facility]CW1 [facility] Unknown [address] [facility] [address] 07/07/2020 12:00:00 AM EST [facility]CW[facility] Unknown [address] [facility] [address] 05/31/2020 12:00:00 AM EST eCW1 ([facility]) Unknown [address] [facility] [address] 05/28/2020 12:00:00 AM EST eCW1 ([facility]) [facility] [address] [facility] [address] 2020 12:00:00 AM EDT [facility]CW1 [facility]) Immunizations Vaccine Date Status Description Data Source(s) COVID-19 VACCINE Pfizer 07/20/2020 12:00:00 AM EST completed [place]SIIS Vaccine Series Complete: YESThis Data wa s Submitted to [facility] Via fivesquids.co.uk. COVID-19 VACCINE Pfizer 06/29/2020 12:00:00 AM EST completed [place]SIIS Vaccine Series Complete: NOThis Data was Submitted to [facility] Via fivesquids.[email or web address]. Medications Medication Brand Name Start Date Product Form Dose Route Admi nistrative Instructions Pharmacy Instructions Status Indications Reaction Description Data Source(s) Microgestin 1/20 1-20 MG-MCG Microgestin 07/28 1-20 MG-MCG 12:00:00 AM EST 1.0 {tablet} active Microgestin 07/28 1-20 MG-MCG eCW1 ([facility]) Paroxetine 20 MG Oral Tablet [Paxil] Paxil 20 MG Paxil 20 MG 03/02/2021 12:00:00 AM EDT 1.0 {tablet_in_the_morning} active Paxil 20 MG eCW1 ([facility]) buspirone hydrochloride 10 MG Oral Tablet busPIRone HC l 10 MG busPIRone HCl 10 MG 03/02/2021 12:00:00 AM EDT 1.0 {tablet} activ e busPIRone HCl 10 MG eCW1 ([facility]) buspirone hydrochloride 10 MG Oral Tablet busPIRone HC l 10 MG busPIRone HCl 10 MG 03/02/2021 12:00:00 AM EDT 1.0 {tablet} activ e busPIRone HCl 10 MG eCW1 ([facility]) buspirone hydrochloride 10 MG Oral Tablet busPIRone HC l 10 MG busPIRone HCl 10 MG 03/02/2021 12:00:00 AM EDT 1.0 {tablet} activ e busPIRone HCl 10 MG eCW1 ([facility]) Paroxetine 20 MG Oral Tablet [Paxil] Paxil 20 MG Paxil 20 MG 03/02/2021 12:00:00 AM EDT 1.0 {tablet_in_the_morning} active Paxil 20 MG eCW1 ([facility]) Paroxetine 20 MG Oral Tablet [Paxil] Paxil 20 MG Paxil 20 MG 03/02/2021 12:00:00 AM EDT 1.0 {tablet_in_the_morning} active Paxil 20 MG eCW1 ([facility]) buspirone hydrochloride 10 MG Oral Tablet busPIRone HC l 10 MG busPIRone HCl 10 MG 03/02/2021 12:00:00 AM EDT 1.0 {tablet} activ e busPIRone HCl 10 MG eCW1 ([facility]) buspirone hydrochloride 10 MG Oral Tablet busPIRone HC l 10 MG busPIRone HCl 10 MG 03/02/2021 12:00:00 AM EDT 1.0 {tablet} activ e busPIRone HCl 10 MG eCW1 ([facility]) Paroxetine 20 MG Oral Tablet [Paxil] Paxil 20 MG Paxil 20 MG 03/02/2021 12:00:00 AM EDT 1.0 {tablet_in_the_morning} active Paxil 20 MG eCW1 ([facility]) Paroxetine 20 MG Oral Tablet [Paxil] Paxil 20 MG Paxil 20 MG 03/02/2021 12:00:00 AM EDT 1.0 {tablet_in_the_morning} active Paxil 20 MG eCW1 ([facility]) Paroxetine 20 MG Oral Tablet [Paxil] Paxil 20 MG Paxil 20 MG 03/02/2021 12:00:00 AM EDT 1.0 {tablet_in_the_morning} active Paxil 20 MG eCW1 ([facility]) Paroxetine 20 MG Oral Tablet [Paxil] Paxil 20 MG Paxil 20 MG 03/02/2021 12:00:00 AM EDT 1.0 {tablet_in_the_morning} active Paxil 20 MG eCW1 ([facility]) buspirone hydrochloride 10 MG Oral Tablet busPIRone HC l 10 MG busPIRone HCl 10 MG 03/02/2021 12:00:00 AM EDT 1.0 {tablet} activ e busPIRone HCl 10 MG eCW1 ([facility]) buspirone hydrochloride 10 MG Oral Tablet busPIRone HC l 10 MG busPIRone HCl 10 MG 03/02/2021 12:00:00 AM EDT 1.0 {tablet} activ e busPIRone HCl 10 MG eCW1 ([facility]) Paroxetine 20 MG Oral Tablet [Paxil] Paxil 20 MG Paxil 20 MG 03/02/2021 12:00:00 AM EDT 1.0 {tablet_in_the_morning} active Paxil 20 MG eCW1 ([facility]) Paroxetine 20 MG Oral Tablet [Paxil] Paxil 20 MG Paxil 20 MG 03/02/2021 12:00:00 AM EDT 1.0 {tablet_in_the_morning} active Paxil 20 MG eCW1 ([facility]) buspirone hydrochloride 10 MG Oral Tablet busPIRone HC l 10 MG busPIRone HCl 10 MG 03/02/2021 12:00:00 AM EDT 1.0 {tablet} activ e busPIRone HCl 10 MG eCW1 ([facility]) buspirone hydrochloride 10 MG Oral Tablet busPIRone HC l 10 MG busPIRone HCl 10 MG 03/02/2021 12:00:00 AM EDT 1.0 {tablet} activ e busPIRone HCl 10 MG eCW1 ([facility]) 200 ACTUAT Albuterol 0.09 MG/ACTUAT Metered Dose Inhaler [Pr oAir] Proair HFA 02/07/2021 12:00:00 AM EDT ORAL active MEDENT ([facility]) NITROFURANTOIN, MACROCRYSTALS 25 MG / Ni trofurantoin, Monohydrate 75 MG Oral Capsule nitrofurantoin monohydrate/macrocrystals 100 mg capsule nitrofurantoin monohydrate/macrocrystals 100 mg capsule 11/24/2020 12:00:00 AM EDT completed 1 tab po BID x 5 days [facility] ([facility]) Ketorolac Tromethamine 10 MG Oral Tablet Ketorolac Trometham ine 10 MG 07/28/2020 12:00:00 AM EST active Ketorol ac Tromethamine 10 MG eCW1 ([facility]) Ondansetron 4 MG Oral Tablet [Zofran] Zofran 4 MG Zofran 4 M G 07/28/2020 12:00:00 AM EST 1.0 {tablet} active Zo ernie 4 MG eCW1 ([facility]) Ondansetron 4 MG Oral Tablet [Zofran] Zofran 4 MG Zofran 4 M G 07/28/2020 12:00:00 AM EST 1.0 {tablet} active Zo ernie 4 MG eCW1 ([facility]) Ondansetron 4 MG Oral Tablet [Zofran] Zofran 4 MG Zofran 4 M G 07/28/2020 12:00:00 AM EST 1.0 {tablet} active Zo ernie 4 MG eCW1 ([facility]) Ketorolac Tromethamine 10 MG Oral Tablet Ketorolac Trometham ine 10 MG 07/28/2020 12:00:00 AM EST active Ketorol ac Tromethamine 10 MG eCW1 ([facility]) Ondansetron 4 MG Oral Tablet [Zofran] Zofran 4 MG Zofran 4 M G 07/28/2020 12:00:00 AM EST 1.0 {tablet} active Zo ernie 4 MG eCW1 ([facility]) Ondansetron 4 MG Oral Tablet [Zofran] Zofran 4 MG Zofran 4 M G 07/28/2020 12:00:00 AM EST 1.0 {tablet} active Zo ernie 4 MG eCW1 ([facility]) Ketorolac Tromethamine 10 MG Oral Tablet Ketorolac Trometham ine 10 MG 07/28/2020 12:00:00 AM EST active Ketorol ac Tromethamine 10 MG eCW1 ([facility]) Ketorolac Tromethamine 10 MG Oral Tablet Ketorolac Trometham ine 10 MG 07/28/2020 12:00:00 AM EST active Ketorol ac Tromethamine 10 MG eCW1 ([facility]) Ketorolac Tromethamine 10 MG Oral Tablet Ketorolac Trometham ine 10 MG 07/28/2020 12:00:00 AM EST active Ketorol ac Tromethamine 10 MG eCW1 ([facility]) Ketorolac Tromethamine 10 MG Oral Tablet Ketorolac Trometham ine 10 MG 07/28/2020 12:00:00 AM EST active Ketorol ac Tromethamine 10 MG eCW1 ([facility]) Ondansetron 4 MG Oral Tablet [Zofran] Zofran 4 MG Zofran 4 M G 07/28/2020 12:00:00 AM EST 1.0 {tablet} active Zo ernie 4 MG eCW1 ([facility]) Ondansetron 4 MG Oral Tablet [Zofran] Zofran 4 MG Zofran 4 M G 07/28/2020 12:00:00 AM EST 1.0 {tablet} active Zo ernie 4 MG eCW1 ([facility]) Ondansetron 4 MG Oral Tablet [Zofran] Zofran 4 MG Zofran 4 M G 07/28/2020 12:00:00 AM EST 1.0 {tablet} active Zo ernie 4 MG eCW1 ([facility]) Ketorolac Tromethamine 10 MG Oral Tablet Ketorolac Trometham ine 10 MG 07/28/2020 12:00:00 AM EST active Ketorol ac Tromethamine 10 MG eCW1 ([facility]) Ketorolac Tromethamine 10 MG Oral Tablet Ketorolac Trometham ine 10 MG 07/28/2020 12:00:00 AM EST active Ketorol ac Tromethamine 10 MG eCW1 ([facility]) Ketorolac Tromethamine 10 MG Oral Tablet Ketorolac Trometham ine 10 MG 07/28/2020 12:00:00 AM EST active Ketorol ac Tromethamine 10 MG eCW1 ([facility]) Ketorolac Tromethamine 10 MG Oral Tablet Ketorolac Trometham ine 10 MG 07/28/2020 12:00:00 AM EST active Ketorol ac Tromethamine 10 MG eCW1 ([facility]) Ketorolac Tromethamine 10 MG Oral Tablet Ketorolac Trometham ine 10 MG 07/28/2020 12:00:00 AM EST active Ketorol ac Tromethamine 10 MG eCW1 ([facility]) Ketorolac Tromethamine 10 MG Oral Tablet Ketorolac Trometham ine 10 MG 07/28/2020 12:00:00 AM EST active Ketorol ac Tromethamine 10 MG eCW1 ([facility]) Ondansetron 4 MG Oral Tablet [Zofran] Zofran 4 MG Zofran 4 M G 07/28/2020 12:00:00 AM EST 1.0 {tablet} active Zo ernie 4 MG eCW1 ([facility]) Ketorolac Tromethamine 10 MG Oral Tablet Ketorolac Trometham ine 10 MG 07/28/2020 12:00:00 AM EST active Ketorol ac Tromethamine 10 MG eCW1 ([facility]) Ondansetron 4 MG Oral Tablet [Zofran] Zofran 4 MG Zofran 4 M G 07/28/2020 12:00:00 AM EST 1.0 {tablet} active Zo ernie 4 MG eCW1 ([facility]) Ketorolac Tromethamine 10 MG Oral Tablet Ketorolac Trometham ine 10 MG 07/28/2020 12:00:00 AM EST active Ketorol ac Tromethamine 10 MG eCW1 ([facility]) Ondansetron 4 MG Oral Tablet [Zofran] Zofran 4 MG Zofran 4 M G 07/28/2020 12:00:00 AM EST 1.0 {tablet} active Zo ernie 4 MG eCW1 ([facility]) Ketorolac Tromethamine 10 MG Oral Tablet Ketorolac Trometham ine 10 MG 07/28/2020 12:00:00 AM EST active Ketorol ac Tromethamine 10 MG eCW1 ([facility]) Ondansetron 4 MG Oral Tablet [Zofran] Zofran 4 MG Zofran 4 M G 07/28/2020 12:00:00 AM EST 1.0 {tablet} active Zo ernie 4 MG eCW1 ([facility]) Ondansetron 4 MG Oral Tablet [Zofran] Zofran 4 MG Zofran 4 M G 07/28/2020 12:00:00 AM EST 1.0 {tablet} active Zo ernie 4 MG eCW1 ([facility]) Ketorolac Tromethamine 10 MG Oral Tablet Ketorolac Trometham ine 10 MG 07/28/2020 12:00:00 AM EST active Ketorol ac Tromethamine 10 MG eCW1 ([facility]) Ketorolac Tromethamine 10 MG Oral Tablet Ketorolac Trometham ine 10 MG 07/28/2020 12:00:00 AM EST active Ketorol ac Tromethamine 10 MG eCW1 ([facility]) Ketorolac Tromethamine 10 MG Oral Tablet Ketorolac Trometham ine 10 MG 07/28/2020 12:00:00 AM EST active Ketorol ac Tromethamine 10 MG eCW1 ([facility]) Ondansetron 4 MG Oral Tablet [Zofran] Zofran 4 MG Zofran 4 M G 07/28/2020 12:00:00 AM EST 1.0 {tablet} active Zo ernie 4 MG eCW1 ([facility]) Ondansetron 4 MG Oral Tablet [Zofran] Zofran 4 MG Zofran 4 M G 07/28/2020 12:00:00 AM EST 1.0 {tablet} active Zo ernie 4 MG eCW1 ([facility]) Ondansetron 4 MG Oral Tablet [Zofran] Zofran 4 MG Zofran 4 M G 07/28/2020 12:00:00 AM EST 1.0 {tablet} active Zo ernie 4 MG eCW1 ([facility]) Ondansetron 4 MG Oral Tablet [Zofran] Zofran 4 MG Zofran 4 M G 07/28/2020 12:00:00 AM EST 1.0 {tablet} active Zo ernie 4 MG eCW1 ([facility]) Ketorolac Tromethamine 10 MG Oral Tablet Ketorolac Trometham ine 10 MG 07/28/2020 12:00:00 AM EST active Ketorol ac Tromethamine 10 MG eCW1 ([facility]) Ondansetron 4 MG Oral Tablet [Zofran] Zofran 4 MG Zofran 4 M G 07/28/2020 12:00:00 AM EST 1.0 {tablet} active Zo ernie 4 MG eCW1 ([facility]) Ondansetron 4 MG Oral Tablet [Zofran] Zofran 4 MG Zofran 4 M G 07/28/2020 12:00:00 AM EST 1.0 {tablet} active Zo ernie 4 MG eCW1 ([facility]) MICROGESTIN 20 TABS 21S WHITE norethindrone ac-eth estradi ol 03/22/2017 12:00:00 AM EDT completed TAKE 1 TABLET BY MOUTH DAILY FOR CONTINUOUS USE [facility] ([facility]) Insurance Providers Payer name Policy type / Coverage type Policy ID Covered constitution party ID Covered constitution party's relationship to bruner Policy Bruner Plan Information [place]BS [place] 302/307 [id number] FA2 [id number] Excell[employer] Blue Cross and Blue Shield - [place] Blue Cross/B lue Shield [id number] Self [id number] [facility] [place] [id number] self [id number] [facility] [employer] (Proprietary) Insurance Co. [id number] Self [id number] SELF PAY ONLY [id number] SP [id number] BCBS [place] PPO 302/307 [id number] SP [id number] EXCELLUS BCBS B [id number] S VYS [id number] [place]BS [place] PPO 302/307 [id number] SP [id number] BCBS [place] PPO 302/307 [id number] SP [id number] O BLUE YNC [id number] SP [id number] ANSI-Commercial [id number] ANSI-Commercial [id number] ANSI-Commercial [id number] BCBS/Excellus Commercial [id number] Self [id number] ANSI-Commercial [id number] ANSI-Commercial [id number] BCBS/Excellus Commercial [id number] Self [id number] ANSI-Commercial [id number] BCBS/[place]cellus Commercial [id number] Family Dependent [id number] ANSI-Commercial [id number] [place] Healthy [place] [id number] Self Y [id number] [place] [id number] Self Y [id number] [place] [id number] Self Y [id number] [facility] [id number] SP [id number] BCBS [place] 302/307 [id number] SP [id number] BCBS/Excellus Commercial [id number] Family Dependent [id number] BCBS/[place] Commercial [id number] Family Dependent [id number] BS [place] Commercial [id number] Self Y [id number] BS Theresa/[place] Commercial [id number] Self Y [id number] BS Theresa/[place] Commercial [id number] Self Y [id number] BS Theresa/[place] Commercial [id number] Self Y [id number] BS Theresa/[place] Commercial [id number] Self Y [id number] BS Theresa/[place] Commercial [id number] Self Y [id number] BS Theresa/[place] Commercial [id number] Self Y [id number] SELF PAY ONLY [id number] SP [id number] [place]BS [place] 305/805 [id number] [id number] [place] 305/805 [id number] SP [id number] BCBS [place] 304/804 [id number] MO2 [id number] BCBS [place] 304/804 [id number] FA2 [id number] ANSI-Not a Secondary Insurance [id number] BCBS [place] HMO [id number] SP [id number] BCBS [place] PPO 302/307 [id number] SP [id number] [id number] SELF PAY EXCELLUS BC-BS PPO 306 [id number] SP [id number] Problems, Conditions, and Diagnoses Code Display Name Description Problem Type Effective Dates Data Source(s) G89.29 [id number] Other chronic pain Problem 09/24/2020 12:00: 00 AM EDT eCW1 ([facility]) N87.0 [id number] Dysplasia of cervix, low grade (RICK 1) Pr oblem 07/20/2020 12:00:00 AM EST eCW1 ([facility]) N92.1 [id number] Breakthrough bleeding on control pi lls Problem 07/20/2020 12:00:00 AM EST eCW1 ([facility]) Surgeries/Procedures Procedure Description Date Indications Data Source(s) OFFICE OUTPATIENT VISIT 15 MINUTES 02/07/2021 12:00:00 AM EDT MEDENT ([facility]) CVR Talent Acquisition Associate.Svc. STI / H 11/24/2020 12:00:00 AM EDT - 11/24/2020 12:00:00 AM EDT [facility] ([facility]) CVR Talent Acquisition Associate.Svc. Other 11/24/2020 12:00:00 AM EDT - 2020 12:00:00 AM EDT [facility] ([facility]) CVR Talent Acquisition Associate.Svc. Contraceptive 11/24/2020 12 :00:00 AM EDT - 11/24/2020 12:00:00 AM EDT [facility] ([facility]) CVR Med.Svc. Height/Weight 11/24/2020 12 :00:00 AM EDT - 11/24/2020 12:00:00 AM EDT [facility] ([facility]) CVR Blood Pressure 11/24/2020 12:00:00 AM EDT - 2020 12:00:00 AM EDT [facility] ([facility]) N.GONORRHOEAE, URINE 11/24/2020 12:00:00 AM EDT - 11/24/2020 12:00:00 AM EDT [facility] ([facility]) CHYLMD TRACH, URINE 11/24/2020 12:00:00 AM EDT - 11/24 12:00:00 AM EDT [facility] ([facility]) URINE CULTURE/COLONY COUNT 11/24/2020 12 :00:00 AM EDT - 11/24/2020 12:00:00 AM EDT [facility] ([facility]) OFFICE VISIT, EST 11/24/2020 12:00:00 AM EDT - 021 12:00:00 AM EDT [facility] ([facility]) URINALYSIS NONAUTO W/O SCOPE 11/24/2020 12:00:00 AM EDT - 11/24/2020 12:00:00 AM EDT [facility] PERIODIC PREVENTIVE MED EST PATIENT 18-39 YRS 10/23/19 12:00:00 AM EDT [facility] ([facility]) Medication: Ferric subsulfate topical solution (MONSELS) 8M L 09/06/2020 12:00:00 AM EST eCW1 ([facility]) OFFICE OUTPATIENT VISIT 15 MINUTES 08/17/2020 12:00:00 AM EST MEDENT ([facility], [facility]) Results ID Date Data Source [id number] 02/07/2021 12:00:00 AM EDT [facility] Name Value Range Interpretation Code Description Data Kanika rce(s) Supporting Document(s) SARS-CoV2 Rapid Antigen Negative [facility] This lab was reported by [facility]. ID Date Data Source [id number] 11/24/2020 04:59:28 PM EDT NextGen ([facility]) Name Value Range Interpretation Code Description Data Kanika rce(s) Supporting Document(s) Color: yellow; Glucose: nega tive; Blood: trace; pH: 6.0; Protein: small; Nitrite: positive; Leukocytes: trace Abnormal (applies to non-numeric results) Urine Dipstick NextGen ([facility]) ID Date Data Source SMC SPINE LS COMPLETE 09/24/2020 12:00:00 AM EDT eCW1 ([facility]) Name Value Range Interpretation Code Description Data Kanika rce(s) Supporting Document(s) SMC SPINE LS COMPLETE eCW1 (On license of [facility]) ID Date Data Source [id number] 09/10/2020 11:00:00 AM EST [facility] Name Value Range Interpretation Code Description Data Kanika rce(s) Supporting Document(s) SARS coronavirus 2 RNA Not Detected [facility] This lab was ordered by [facility] and reported by [facility]. ID Date Data Source [id number] 08/17/2020 12:00:00 AM EST [facility] Name Value Range Interpretation Code Description Data Kanika rce(s) Supporting Document(s) SARS-CoV2 Rapid Antigen Negative [facility] This lab was reported by [facility]. ID Date Data Source FREE T4 & TSH PANEL 07/28/2020 12:00:00 AM EST eCW1 ([facility]) Name Value Range Interpretation Code Description Data Kanika rce(s) Supporting Document(s) 0.996 0.358-3.740 eCW1 ([facility]) 0.97 0.76-1.46 eCW1 ([facility]) ID Date Data Source ERYTHROCYTE SEDIMENTATION RATE 07/28/2020 12:00:00 AM EST eC W1 ([facility]) Name Value Range Interpretation Code Description Data Kanika rce(s) Supporting Document(s) 7 0-20 eCW1 ([facility]) ID Date Data Source Comprehensive Metabolic Profile (CMP) 07/28/2020 12:00:00 AM EST eCW1 ([facility]) Name Value Range Interpretation Code Description Data Kanika rce(s) Supporting Document(s) 77 70-100 eCW1 ([facility]) 0.86 0.55-1.30 eCW1 ([facility]) > 60.0 >60 eCW1 ([facility]) 10 7-18 eCW1 ([facility]) 106 98-107 eCW1 ([facility]) 4.2 3.5-5.1 eCW1 ([facility]) 29 21-32 eCW1 ([facility]) 137 136-145 eCW1 ([facility]) 17 7-37 eCW1 ([facility]) 29 12-78 eCW1 ([facility]) 80 45-117 eCW1 ([facility]) 0.2 0.2-1.0 eCW1 ([facility]) 8.8 8.5-10.1 eCW1 ([facility]) 3.8 3.2-5.2 eCW1 ([facility]) 1.1 1.2-2.2 eCW1 ([facility]) 7.2 6.4-8.2 eCW1 ([facility]) ID Date Data Source CBC - Complete Blood Count 07/28/2020 12:00:00 AM EST eCW1 ( [facility]) Name Value Range Interpretation Code Description Data Kanika rce(s) Supporting Document(s) 4.55 4.00-5.40 eCW1 ([facility]) 7.9 4.0-10.0 eCW1 ([facility]) 13.5 12.0-15.5 eCW1 ([facility]) 41.1 36.0-47.0 eCW1 ([facility]) 29.7 27.0-33.0 eCW1 ([facility]) 90.3 80.0-96.0 eCW1 ([facility]) 32.8 32.0-36.5 eCW1 ([facility]) 12.6 11.5-14.5 eCW1 ([facility]) 301 150-450 eCW1 ([facility]) ID Date Data Source PAP REQUEST FOR SERVICE 07/20/2020 12:00:00 AM EST eCW1 ([facility]) Name Value Range Interpretation Code Description Data Kanika rce(s) Supporting Document(s) PAP REQUEST FOR SERVICE eCW1 ( [facility]) ID Date Data Source [id number] 06/15/2020 12:00:00 AM EST [facility] Name Value Range Interpretation Code Description Data Kanika rce(s) Supporting Document(s) 2019-nCoV RNA XXX LEISA+probe-Imp [facility] This lab was ordered by [facility] and reported by [employer] ID Date Data Source [id number] 06/07/2020 12:00:00 AM EST [facility] Name Value Range Interpretation Code Description Data Kanika rce(s) Supporting Document(s) SARS coronavirus 2 RNA [Presence] in Res piratory specimen by LEISA with probe detection [facility] This lab was ordered by [facility] and reported by [employer]. ID Date Data Source [id number] 04/24/2020 12:00:00 AM EDT [facility] Name Value Range Interpretation Code Description Data Kanika rce(s) Supporting Document(s) 2019-nCoV RNA XXX LEISA+probe-Imp [facility] This lab was ordered by [facility] and reported by [employer] Procedure Social History Code Duration Value Status Description Data Source(s ) Smoking 02/07/2021 12:00:00 AM EDT Patient has never smoked co mpleted Patient has never smoked MEDENT ([facility], [facility]) Smoking 12/01/2020 12:00:00 AM EDT Never smoker completed Never s moker NextGen ([facility]) 11/24/2020 12:00:00 AM EDT Current non-smoker completed C urrent non-smoker NextGen ([facility]) Smoking 09/24/2020 12:00:00 AM EDT Never Smoker completed Never S moker eCW1 ([facility]) Smoking 09/24/2020 12:00:00 AM EDT Never Smoker completed Never S moker eCW1 ([facility]) Smoking 09/24/2020 12:00:00 AM EDT Never Smoker completed Never S moker eCW1 ([facility]) Smoking 09/24/2020 12:00:00 AM EDT Never Smoker completed Never S moker eCW1 ([facility]) Smoking 09/24/2020 12:00:00 AM EDT Never Smoker completed Never S moker eCW1 ([facility]) Smoking 09/24/2020 12:00:00 AM EDT Never Smoker completed Never S moker eCW1 ([facility]) Smoking 09/24/2020 12:00:00 AM EDT Never Smoker completed Never S moker eCW1 ([facility]) Smoking 09/24/2020 12:00:00 AM EDT Never Smoker completed Never S moker eCW1 ([facility]) Smoking 09/24/2020 12:00:00 AM EDT Never Smoker completed Never S moker eCW1 ([facility]) Smoking 09/24/2020 12:00:00 AM EDT Never Smoker completed Never S moker eCW1 ([facility]) Smoking 09/24/2020 12:00:00 AM EDT Never Smoker completed Never S moker eCW1 ([facility]) Smoking 09/24/2020 12:00:00 AM EDT Never Smoker completed Never S moker eCW1 ([facility]) Smoking 09/24/2020 12:00:00 AM EDT Never Smoker completed Never S moker eCW1 ([facility]) Smoking 09/06/2020 12:00:00 AM EST Never Smoker completed Never S moker eCW1 ([facility]) Smoking 07/28/2020 12:00:00 AM EST Never Smoker completed Never S moker eCW1 ([facility]) Smoking 07/28/2020 12:00:00 AM EST Never Smoker completed Never S moker eCW1 ([facility]) Smoking 07/28/2020 12:00:00 AM EST Never Smoker completed Never S moker eCW1 ([facility]) Smoking 07/28/2020 12:00:00 AM EST Never Smoker completed Never S moker eCW1 ([facility]) Smoking 07/28/2020 12:00:00 AM EST Never Smoker completed Never S moker eCW1 ([facility]) Smoking 07/20/2020 12:00:00 AM EST Never Smoker completed Never S moker eCW1 ([facility]) Smoking 05/24/2020 12:00:00 AM EST Never Smoker completed Never S moker eCW1 ([facility]) Smoking 05/24/2020 12:00:00 AM EST Never Smoker completed Never S moker eCW1 ([facility]) Vital Signs ID Date Data Source UNK Name Value Range Interpretation Code Description Data Source(s) Systolic blood pressure 115 mm[Hg] 115 mm[Hg] M EDENT ([facility], [facility]) Diastolic blood pressure 76 mm[Hg] 76 mm[Hg] MEDENT ([facility]) Heart rate 84 /min 84 /min [facility]) Respiratory rate 12 /min 12 /min [facility] ( [facility]) Oxygen saturation in Arterial blood by Pulse oximetry 99 % 99 % [facility] ([facility], [facility]) Body temperature 97.3 [degF] 97.3 [degF] [facility] ([facility]) Body height 62 [in_i] 62 [in_i] [facility] ([facility]) 5'2" Body weight 165.00 [lb_av] 165.00 [lb_av] MEDEN T ([facility]) Body mass index (BMI) [Ratio] 30.2 kg/m2 30.2 k g/m2 MEDENT ([facility]) Body height 157.48 cm 157.48 cm NextGen ([facility]) Body weight 80.739 kg 80.739 kg NextGen ([facility]) Systolic blood pressure 118 mm[Hg] 118 mm[Hg] N extGen ([facility]) Diastolic blood pressure 78 mm[Hg] 78 mm[Hg] NextGen ([facility]) Body mass index (BMI) [Ratio] 32.56 kg/m2 Overweight 32.56 kg/m2 NextGen ([facility]) Respiratory rate 16 /min 16 /min MEDENT ( [facility], [facility]) Oxygen saturation in Arterial blood by Pulse oximetry 98 % 98 % MEDENT ([facility], [facility]) Body mass index (BMI) [Ratio] 30.2 kg/m2 30.2 k g/m2 MEDENT ([facility], [facility]) Body weight 165.00 [lb_av] 165.00 [lb_av] MEDEN T ([facility], [facility]) Body temperature 97.3 [degF] 97.3 [degF] MEDENT ([facility], [facility]) Heart rate 98 /min 98 /min MEDENT ([facility], [facility]) Diastolic blood pressure 77 mm[Hg] 77 mm[Hg] MEDENT ([facility], [facility]) Systolic blood pressure 112 mm[Hg] 112 mm[Hg] M EDENT ([facility], [facility]) Body height 62 [in_i] 62 [in_i] MEDENT ([facility], [facility]) 5'2" Body weight 170.4 [lb_av] 170.4 [lb_av] eCW1 ([facility]) Body height [in_i] eCW1 ([facility]) Body mass index (BMI) [Ratio] 30.18 kg/m2 30.18 kg/m2 eCW1 ([facility]) Heart rate 104 /min 104 /min [facility]CW[facility] Respiratory rate 18 /min 18 /min eCW1 (On license of [facility]) Body temperature 99.2 [degF] 99.2 [degF] eCW1 ( [facility]) Systolic blood pressure 130 mm[Hg] 130 mm[Hg] e CW1 ([facility]) Diastolic blood pressure 80 mm[Hg] 80 mm[Hg] eCW1 ([facility]) Body weight 168 [lb_av] 168 [lb_av] eCW1 ([facility]) Body weight 76.2 kg 76.2 kg eCW1 ([facility]) Body height [in_i] eCW1 ([facility]) Body mass index (BMI) [Ratio] 29.76 kg/m2 29.76 kg/m2 eCW1 ([facility]) Systolic blood pressure 120 mm[Hg] 120 mm[Hg] e CW1 ([facility]) Diastolic blood pressure 76 mm[Hg] 76 mm[Hg] eCW1 ([facility]) Respiratory rate 16 /min 16 /min MEDENT ( [facility], [facility]) Oxygen saturation in Arterial blood by Pulse oximetry 98 % 98 % MEDENT ([facility], [facility]) Body temperature 97.3 [degF] 97.3 [degF] MEDENT ([facility], [facility]) Body weight 160.00 [lb_av] 160.00 [lb_av] MEDEN T ([facility], [facility]) Systolic blood pressure 102 mm[Hg] 102 mm[Hg] M EDENT ([facility], [facility]) Diastolic blood pressure 70 mm[Hg] 70 mm[Hg] MEDENT ([facility], [facility]) Heart rate 100 /min 100 /min MEDENT ([facility], [facility]) Systolic blood pressure 120 mm[Hg] 120 mm[Hg] e CW1 ([facility]) Body weight 167.6 [lb_av] 167.6 [lb_av] eCW1 ([facility]) Body height [in_i] eCW1 ([facility]) Body mass index (BMI) [Ratio] 29.69 kg/m2 29.69 kg/m2 eCW1 ([facility]) Heart rate 54 /min 54 /min [facility]CW[facility] Respiratory rate 18 /min 18 /min eCW1 ([facility] of [facility]) Diastolic blood pressure 70 mm[Hg] 70 mm[Hg] eCW1 ([facility]) Body temperature 97.8 [degF] 97.8 [degF] eCW1 ( [facility]) Body weight 162 [lb_av] 162 [lb_av] eCW1 ([facility]) Body weight 73.48 kg 73.48 kg eCW1 ([facility]) Body height [in_i] eCW1 ([facility]) Body mass index (BMI) [Ratio] 28.69 kg/m2 28.69 kg/m2 eCW1 ([facility]) Systolic blood pressure 113 mm[Hg] 113 mm[Hg] e CW1 ([facility]) Diastolic blood pressure 69 mm[Hg] 69 mm[Hg] eCW1 ([facility]) Body weight 168.8 [lb_av] 168.8 [lb_av] eCW1 ([facility]) Body height [in_i] eCW1 ([facility]) Body mass index (BMI) [Ratio] 29.90 kg/m2 29.90 kg/m2 eCW1 ([facility]) Heart rate 107 /min 107 /min [facility]CW[facility] Respiratory rate 18 /min 18 /min eCW1 (On [facility] of [facility]) Body temperature 97.8 [degF] 97.8 [degF] eCW1 ( [facility]) Systolic blood pressure 120 mm[Hg] 120 mm[Hg] e CW1 ([facility]) Diastolic blood pressure 70 mm[Hg] 70 mm[Hg] eCW1 ([facility]) Patient Treatment Plan of Care Planned Activity Planned Date Details Description Data Source (s) Microgestin 07/28 1-20 MG-MCG 06/17/2021 12:00:00 AM EST eCW1 ([facility]) Paroxetine 20 MG Oral Tablet [Paxil] 03/02/2021 12:00:00 AM EDT eCW1 ([facility]) buspirone hydrochloride 10 MG Oral Tablet 03/02/2021 12:00:00 AM ED T eCW1 ([facility]) Paroxetine 20 MG Oral Tablet [Paxil] 03/02/2021 12:00:00 AM EDT eCW1 ([facility]) buspirone hydrochloride 10 MG Oral Tablet 03/02/2021 12:00:00 AM ED T eCW1 ([facility]) Paroxetine 20 MG Oral Tablet [Paxil] 03/02/2021 12:00:00 AM EDT eCW1 ([facility]) buspirone hydrochloride 10 MG Oral Tablet 03/02/2021 12:00:00 AM ED T eCW1 ([facility]) Paroxetine 20 MG Oral Tablet [Paxil] 03/02/2021 12:00:00 AM EDT eCW1 ([facility]) buspirone hydrochloride 10 MG Oral Tablet 03/02/2021 12:00:00 AM ED T eCW1 ([facility]) Paroxetine 20 MG Oral Tablet [Paxil] 03/02/2021 12:00:00 AM EDT eCW1 ([facility]) buspirone hydrochloride 10 MG Oral Tablet 03/02/2021 12:00:00 AM ED T eCW1 ([facility]) Paroxetine 20 MG Oral Tablet [Paxil] 03/02/2021 12:00:00 AM EDT eCW1 ([facility]) buspirone hydrochloride 10 MG Oral Tablet 03/02/2021 12:00:00 AM ED T eCW1 ([facility]) Paroxetine 20 MG Oral Tablet [Paxil] 03/02/2021 12:00:00 AM EDT eCW1 ([facility]) buspirone hydrochloride 10 MG Oral Tablet 03/02/2021 12:00:00 AM ED T eCW1 ([facility]) Paroxetine 20 MG Oral Tablet [Paxil] 03/02/2021 12:00:00 AM EDT eCW1 ([facility]) buspirone hydrochloride 10 MG Oral Tablet 03/02/2021 12:00:00 AM ED T eCW1 ([facility]) buspirone hydrochloride 10 MG Oral Tablet 03/02/2021 12:00:00 AM ED T eCW1 ([facility]) Paroxetine 20 MG Oral Tablet [Paxil] 03/02/2021 12:00:00 AM EDT eCW1 ([facility]) NITROFURANTOIN, MACROCRYSTALS 25 MG / Ni trofurantoin, Monohydrate 75 MG Oral Capsule 11/24/2020 12:00:00 AM EDT NextG en ([facility]) Ketorolac Tromethamine 10 MG Oral Tablet 07/28/2020 12:00:00 AM EST eCW1 ([facility]) Ondansetron 4 MG Oral Tablet [Zofran] 07/28/2020 12:00:00 AM EST eCW1 ([facility]) Ketorolac Tromethamine 10 MG Oral Tablet 07/28/2020 12:00:00 AM EST eCW1 ([facility]) Ondansetron 4 MG Oral Tablet [Zofran] 07/28/2020 12:00:00 AM EST eCW1 ([facility]) Ketorolac Tromethamine 10 MG Oral Tablet 07/28/2020 12:00:00 AM EST eCW1 ([facility]) Ondansetron 4 MG Oral Tablet [Zofran] 07/28/2020 12:00:00 AM EST eCW1 ([facility]) Ketorolac Tromethamine 10 MG Oral Tablet 07/28/2020 12:00:00 AM EST eCW1 ([facility]) Ondansetron 4 MG Oral Tablet [Zofran] 07/28/2020 12:00:00 AM EST eCW1 ([facility]) Ketorolac Tromethamine 10 MG Oral Tablet 07/28/2020 12:00:00 AM EST eCW1 ([facility]) Ondansetron 4 MG Oral Tablet [Zofran] 07/28/2020 12:00:00 AM EST eCW1 ([facility]) MICROGESTIN 07/28 TABS 21S WHITE 03/22/2017 12:00:00 AM EDT NextGen ([facility])
--- NOTE | 2021-06-20 08:33 | HPEPDOC ---
General Date of Admission 06/20/21 Date of Service: Jun 20, 2021 Chief Complaint The patient is a 31-year-old female admitted with a reason for visit of Psych Problem. Source: Patient History of Present Illness Patient is 31 years old female with past medical history of depression, anxiety presented to hospital after Wellbutrin overdose. Patient stated that she was upset yesterday because her mom 1 year ago and she still grieving. Patient reported that because of anxiety and depression she decided to take some extra pills of Wellbutrin, she told me around 4 pills, but denied any suicidal ideation when I asked. In ER patient was found to have low blood pressure 97/60, no leukocytosis. EKG did not show any acute ischemic changes or QTC prolongation. Patient denied fever, chills, chest pain, palpitations diarrhea or dysuria. ER physician contacted poison control, they recommended observation for 24 hours in the hospital settings Home Medications Scheduled Norethindrone AC-Eth Estradiol (Microgestin 21 1.5-30 Tab) 1 Each Tablet, 1 TAB PO DAILY, (Reported) Paroxetine HCl (Paroxetine) 20 Mg Tablet, 20 MG PO DAILY, (Reported) Miscellaneous Medications [Med Note] , (Reported) PHARMACY HAS NO RECORD OF WELLBUTRIN PRESCIPTION 06/20 Allergies Coded Allergies: No Known Allergies (Unverified , 10/09/18) Past Medical History Medical History Depression, anxiety Family History NO H/O CAD, DM, CANCER COLON, BREAST OR OVARIES Social History * Smoker: Denies Alcohol: heavy Drugs: denies A-FIB/CHADSVASC A-FIB History Current/History of A-Fib/PAF?: No Current PO Anticoag Therapy: No Review of Systems Constitutional: Denies: Chills, Fever Eyes: Denies: Pain ENT: Denies: Head Aches Skin: Denies: Rash Pulmonary: Denies: Dyspnea Cardiovascular: Denies: Chest Pain Gastrointestinal: Denies: Nausea Genitourinary: Denies: Dysuria Hematologic: Denies: Bruising Endocrine: Denies: Polydipsia Musculoskeletal: Denies: Neck Pain Neurological: Denies: Weakness Psych: Reports: Anxiety, Depression Physical Examination General Exam: Positive: Alert, Cooperative Eye Exam: Positive: PERRLA ENT Exam: Positive: Atraumatic Neck Exam: Positive: Supple; Negative: JVD Chest Exam: Positive: Clear to auscultation Heart Exam: Positive: Rate Normal Telemetry: Positive: No significant arrhythmia Abdomen Exam: Positive: Normal bowel sounds Extremity Exam: Negative: Clubbing Skin Exam: Negative: Nl turgor and temperature Neuro Exam: Positive: Normal Gait, Cranial Nerves 3-12 NL Psych Exam: Positive: Oriented x 3 Vital Signs Vital Signs Date Time Temp Pulse Resp B/P (MAP) Pulse Ox O2 Delivery O2 Flow Rate FiO2 06/20/21 08:15 97.1 117 97/60 (72) 96 06/20/21 06:48 15 Room Air Laboratory Data Labs 24H Laboratory Tests 2 06/19/21 22:50: Nucleated Red Blood Cells % (auto) 0.0, Anion Gap 9, Glomerular Filtration Rate > 60.0, Calcium Level 8.5, Total Bilirubin 0.2, Direct Bilirubin < 0.1, A spartate Amino Transf (AST/SGOT) 41H, Alanine Aminotransferase (ALT/SGPT) 54, Alkaline Phosphatase 112, Total Protein 7.9, Albumin 4.1, Albumin/Globulin Ratio 1.1L, Thyroid Stimulating Hormone (TSH) 2.180, Salicylates Level < 1.7L, Acetaminophen Level < 2.0L, Ethyl Alcohol Level 0.239H 06/20/21 00:01: Urine Opiates Screen NEGATIVE, Urine Methadone Screen NEGATIVE, Urine Anya turates Screen NEGATIVE, Urine Phencyclidine Screen NEGATIVE, Urine Amphetamines Screen POSITIVEH, Urine Benzodiazepines Screen NEGATIVE, Urine Cocaine Metabolite Screen NEGATIVE, Urine Cannabinoids Screen NEGATIVE, Coronavirus (COVID-19)(PCR) NEGATIVE, Influenza Type A (RT-PCR) NEGATIVE, Influenza Type B (RT-PCR) NEGATIVE, Respiratory Syncytial Virus (PCR) NEGATIVE CBC/BMP Laboratory Tests 06/19/21 22:50 Assessment/Plan Patient is 51 years old female with past medical history of depression, anxiety presented to hospital after Wellbutrin overdose. Patient stated that she was upset yesterday because her mom 1 year ago and she still grieving. Patient reported that because of anxiety and depression she decided to take some extra pills of Wellbutrin, but denied any suicidal ideation when I asked. In ER patient was found to have low blood pressure 97/60, no leukocytosis. EKG did not show any acute ischemic changes or QTC prolongation. Patient denied fever, chills, chest pain, palpitations diarrhea or dysuria. ER physician contacted poison control, they recommended observation for 24 hours in the hospital settings Problems (1) Overdose Status: Acute Problem Text: Wellbutrin overdose Appreciate/agree with psych consult after initial stabilization Telemetry Continue IV fluid (2) Depression Status: Acute Problem Text: Defer treatment to psych team Plan / VTE VTE Prophylaxis Ordered?: Yes ROSA BUNCH DO Jun 20, 2021 08:33
[2021-06-20] MEDS ORDERED: D5W/0.45% SODIUM CHLORIDE 1,000 ML IV ONE (08:35)
[2021-06-20] MEDS: HEPARIN SOD (PORCINE) 5000UNITS/ML 1ML VIAL/SYRINGE SC SCH ×2 (09:00→20:05)
[2021-06-20] MEDS: ACETAMINOPHEN TAB 650MG DOSE (2X325MG) PO PRN (14:23)
--- NOTE | 2021-06-20 15:17 | ECGEPIP ---
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
--- NOTE | 2021-06-20 15:18 | ECGEPIP ---
[facility] - ED Test Date: 2021-06-20 Pat Name: BENITO UREÑA Department: Room: [place] [address] Gender: Female Watch Commander: ABDIRAHMAN : [id number] Requested By: TADEO Polo Order Number: [id number] Reading MD: Raffaele Whitt Measurements Intervals [place] Rate: 115 P: 66 OK: 136 QRS: 18 QRSD: 84 T: 32 QT: 322 QTc: 445 Interpretive Statements Sinus tachycardia INCOMPLETE RIGHT BUNDLE BRANCH BLOCK SIMILAR TO PRIOR ON SAME DATE Electronically Signed on 06-20-2021 15:18:16 EST by Raffaele Whitt
--- NOTE | 2021-06-20 16:10 | MHCRPDOC ---
[facility] Consultation Consultation DATE OF CONSULTATION: 06/20/21 CONSULTATION REQUESTED BY: hospitalist team, Dr Gastelum REASON FOR CONSULTATION: intentional overdose RELEVANT HISTORY: Patient is a 31-year-old woman with a history of reported anxiety, states receives medications from her primary care doctor including Wellbutrin, paroxetine 20 mg, on interview reports she took 4 pills of Wellbutrin, because she felt "overwhelmed", states everything is going well with her life and that working 2 jobs can be stressful, she told this to her friend who called a wellness check on the patient, asks if it contact this friend states he does not have her phone in her possession and does not know the phone number, nursing confirmed that the phone was in her possession we have incongruency is in the patient's story, per nursing staff they feel that she is minimizing her symptoms and that today she states she is been doing fine whereas last night nursing staff had reported she reported needed help and was a safety concern. On questioning did not endorse alcohol use until it was noted on labs, BAL was 0.239 on admission, and also pointed out that she had amphetamines per toxicology screen, she then reported that she also took Adderall (stated prescribed by PCP) along with the Wellbutrin and the alcohol, per ISTOP: This report was requested by: Brendon Sanchez | Reference #: [id number] There are no results for the search terms that you entered., when asked if she understood the risk for seizure and when taking these medications together states, "the doctor never told me, I never knew this". PAST PSYCHIATRIC HISTORY: States has no outpatient, reports has a history of SBH a couple months ago for intake, takes Wellbutrin, Paxil, denies inpatient admissions or SA. PAST MEDICAL HISTORY: Denies any medical history FAMILY HISTORY: Denies any family history of any kind PERSONAL AND SOCIAL HISTORY: The patient was born and raised in [place]. 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 Thought content: Denies suicidal ideations, likely minimizing symptoms per nursing staff. Abstract reasoning, and computation: Fair. Description of associations: Fair. Description of abnormal or psychotic thoughts: Denies. Judgment: Poor. Insight: Poor. Orientation to x3. Recent and remote memory: Intact. Attention span and concentration: Somewhat decreased Language: Citizen Of [place]. Fund of knowledge: Average. Mood: "good" Affect: Flat, withdrawn, mood incongruent DIAGNOSIS: 1. Unspecified anxiety disorder PLAN: 1. Patient meets criteria for involuntary admission in context of intentional overdose and suicide attempt, find a bed, per staff likely minimizing symptoms in context of wanting discharge, per chart review has recent stressor of mom's passing 1 year ago with anniversary, patient denies any acute stressor and story is incongruent on questioning, states she did not have a cell phone despite being present and her possessions, minimizing suicide attempt. Vital Signs Vital Signs Date Time Temp Pulse Resp B/P (MAP) Pulse Ox O2 Delivery O2 Flow Rate FiO2 06/20/21 15:15 105 98 06/20/21 12:15 97/66 (76) 06/20/21 08:15 97.1 06/20/21 06:48 15 Room Air Laboratory Data 24H Labs Laboratory Tests 2 06/19/21 22:50: Nucleated Red Blood Cells % (auto) 0.0, Anion Gap 9, Glomerular Filtration Rate > 60.0, Calcium Level 8.5, Total Bilirubin 0.2, Direct Bilirubin < 0.1, Aspartate Amino Transf (AST/SGOT) 41H, Alanine Aminotransferase (ALT/SGPT) 54, Alkaline Phosphatase 112, Total Protein 7.9, Albumin 4.1, Albumin/Globulin Ratio 1.1L, Thyroid Stimulating Hormone (TSH) 2.180, Salicylates Level < 1.7L, Acetaminophen Level < 2.0L, Ethyl Alcohol Level 0.239H 06/20/21 00:01: Urine Opiates Screen NEGATIVE, Urine Methadone Screen NEGATIVE, Urine Barbiturates Screen NEGATIVE, Urine Phencyclidine Screen NEGATIVE, Urine Amphetamines Screen POSITIVEH, Urine Benzodiazepines Screen NEGATIVE, Urine Cocaine Metabolite Screen NEGATIVE, Urine Cannabinoids Screen NEGATIVE, Coronavirus (COVID-19)(PCR) NEGATIVE, Influenza Type A (RT-PCR) NEGATIVE, Influenza Type B (RT-PCR) NEGATIVE, Respiratory Syncytial Virus (PCR) NEGATIVE Home Medications Current Medications Current Medications Medications (Trade) Dose Ordered Sig/Sophia Route PRN Reason Start Time Stop Time Status Last Admin Dose Admin Acetaminophen (Tylenol Tab) 650 mg Q4H PRN PO MILD PAIN or TEMP > 101 06/20/21 08:20 06/20/21 14:23 Heparin Sodium (Porcine) (Heparin) 5,000 units Q12H SC 06/20/21 09:00 Home Med (Home Med List Complete!) ASDIRECTED XX 06/20/21 08:20 06/20/21 08:21 DC Lorazepam (Ativan) 2 mg STAT STAT IV 06/20/21 00:32 06/20/21 00:33 DC 06/20/21 00:48 Scheduled Norethindrone AC-Eth Estradiol (Microgestin 21 1.5-30 Tab) 1 Each Tablet, 1 TAB PO DAILY, (Reported) Paroxetine HCl (Paroxetine) 20 Mg Tablet, 20 MG PO DAILY, (Reported) Miscellaneous Medications [Med Note] , (Reported) PHARMACY HAS NO RECORD OF WELLBUTRIN PRESCIPTION 06/20 Allergies Coded Allergies: No Known Allergies (Unverified , 10/09/18) BRENDON SANCHEZ MD Jun 20, 2021 16:10
[2021-06-20 17:55] VITALS: BP 120/80
[2021-06-20] MEDS ORDERED: ONDANSETRON 4 MG TAB PO PRN (18:00)
[2021-06-20 22:00] VITALS: BP 98/65
[2021-06-21 05:51] LABS: HEMATOCRIT 38.5 % (36.0-47.0); HEMOGLOBIN 12.6 g/dl (12.0-15.5); MEAN CORPUSCULAR HEMOGLOBIN 29.6 pg (27.0-33.0); MEAN CORPUSCULAR HGB CONC 32.7 g/dl (32.0-36.5); MEAN CORPUSCULAR VOLUME 90.4 fl (80.0-96.0); PLATELET COUNT, AUTOMATED 222 10^3/uL (150-450); RED BLOOD COUNT 4.26 10^6/uL (4.00-5.40); WHITE BLOOD COUNT 5.7 10^3/uL (4.0-10.0)
[2021-06-21 06:00] VITALS: BP 109/68
[2021-06-21 06:28] LABS: ALBUMIN 3.2 GM/DL (3.2-5.2); ALT/SGPT 46 U/L (12-78); BILIRUBIN,TOTAL 0.2 MG/DL (0.2-1.0); BLOOD UREA NITROGEN 7 MG/DL (7-18); CALCIUM LEVEL 8.5 MG/DL (8.5-10.1); CARBON DIOXIDE LEVEL 24 MEQ/L (21-32); CHLORIDE LEVEL 110 MEQ/L (98-107); CREATININE FOR GFR 0.81 MG/DL (0.55-1.30); GLOMERULAR FILTRATION RATE > 60.0 (>60); GLUCOSE, FASTING 95 MG/DL (70-100); POTASSIUM SERUM 3.8 MEQ/L (3.5-5.1); SODIUM LEVEL 141 MEQ/L (136-145); TOTAL PROTEIN 6.3 GM/DL (6.4-8.2)
[2021-06-21] MEDS: HEPARIN SOD (PORCINE) 5000UNITS/ML 1ML VIAL/SYRINGE SC SCH (07:58)
[2021-06-21] MEDS ORDERED: PARoxetine 20MG TABLET PO SCH (12:40)
[2021-06-21 14:00] VITALS: BP 122/86
[2021-06-21] MEDS: ACETAMINOPHEN TAB 650MG DOSE (2X325MG) PO PRN (15:10)
--- NOTE | 2021-06-21 15:19 | MHIPNPDOC ---
[facility] Progress Note Progress Note DATE OF SERVICE: 06/21/21 Interval: Was called by Dr. 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 Jojo states that she had told her friend Kaylin that she had taken pills but nothing else, when confronted with the fact Kaylin had mentioned that she had said it was a suicide attempt she became tearful and withdrawn, reports she does not have outpatient appointments despite going to his [facility] several times and being consistent with her paroxetine 20 mg p.o. every morning, also reports that her Wellbutrin 150 mg XL every morning. Patient continues to have inconsistency in her story stating that at one point she taken a handful of pills then stating that she had taken 4 pills when confronted. RADHA was granted to reach out to patient's friend Kaylin, who called the welfare check, per collateral if she feels she could benefit outside the hospital not receiving comprehensive care but states that the night when patient came in, she had called 911 after receiving a text from Kate stating she was going go home and kill herself. "I thought it was dramatic and then she followed up with saying she took a bunch of pills and then she did not respond at all after that. Not really sure what the stressors are but I know she has been doing actually pretty well and things have been going great but she has been working to develop jobs and that maybe that is been stressful, she lives alone no history of suicide attempts that I know of and no weapons I know of". States she thinks she has been dealing with a lot of stress now that she has been sober for some time and had drinks with her aunt the other night which may contributed to her behavior. MENTAL STATUS EXAMINATION: Patient is a 31-year old female, who is in no acute distress, appears stated age, glasses, short blond hair, casual clothing, fair hygiene Speech: Is spontaneous, normal rate and volume, and prosody Language skills are intact Thought processes including: Linear, logical. Thought content: Patient is concerned about possibly losing her jobs and having to start at "[employer]", denies suicidal ideations possibly minimizing. Abstract reasoning, and computation: Fair based on interview description of associations: Normal based on interview Description of abnormal or psychotic thoughts: Denies, not observed. Judgment: Poor. Insight: Improving Orientation: X3 based on interview Recent and remote memory: Intact, but states she does not remember texting her friend or having her cell phone Attention span and concentration: Fair. Language: [place]. Fund of knowledge: Average based on. Mood: "Good". Affect: Somewhat labile and tearful on further questioning, constr icted, mood-incongruent DIAGNOSES: Unspecified depressive disorder ASSESSMENT: Patient continues to require involuntary inpatient admission due to risk for suicide in context of likely suicide attempt reported to a friend, leading to welfare check and admission. Communicated with hospitalist Dr. Laguerre, so that patient could be transferred to the inpatient mental health unit, spoke with nursing about transfer. MANAGEMENT PLAN: Continue home medications including paroxetine 20 mg p.o. daily, can restart Wellbutrin 50 mg XL p.o. daily, can offer as needed trazodone 50 mg nightly for sleep if needed and as needed hydroxyzine for anxiety 50 mg. TIME SPENT: 25 minutes. Vital Signs Vital Signs Date Time Temp Pulse Resp B/P (MAP) Pulse Ox O2 Delivery O2 Flow Rate FiO2 06/21/21 06:00 98.0 66 20 109/68 (82) 100 Room Air Laboratory Data 24H Labs Laboratory Tests 2 06/21/21 05:35: Anion Gap 7L, Glomerular Filtration Rate > 60.0, Calcium Level 8.5, Magnesium Level 2.0, Total Bilirubin 0.2, Aspartate Amino Transf (AST/SGOT) 33, Alanine Aminotransferase (ALT/SGPT) 46, Alkaline Phosphatase 89, Total Protein 6.3#L, Albumin 3.2#, Albumin/Globulin Ratio 1.0L 06/21/21 05:36: Nucleated Red Blood Cells % (auto) 0.0 CBC/BMP Laboratory Tests 06/21/21 05:35 06/21/21 05:36 Current Medications Current Medications Medications (Trade) Dose Ordered Sig/Sophia Route PRN Reason Start Time Stop Time Status Last Admin Dose Admin Acetaminophen (Tylenol Tab) 650 mg Q4H PRN PO MILD PAIN or TEMP > 101 06/20/21 08:20 06/20/21 14:23 Heparin Sodium (Porcine) (Heparin) 5,000 units Q12H SC 06/20/21 09:00 06/21/21 07:58 Home Med (Home Med List Complete!) ASDIRECTED XX 06/20/21 08:20 06/20/21 08:21 DC Lorazepam (Ativan) 2 mg STAT STAT IV 06/20/21 00:32 06/20/21 00:33 DC 06/20/21 00:48 Ondansetron HCl (Zofran) 4 mg Q6HP PRN PO NAUSEA OR VOMITING 06/20/21 18:00 06/20/21 18:14 Paroxetine HCl (PAXil) 20 mg DAILY PO 06/21/21 12:40 06/21/21 15:03 Allergies Coded Allergies: No Known Allergies (Unverified , 10/09/18) LEANN SANCHEZ MD Jun 21, 2021 15:19
[2021-06-21] MEDS ORDERED: WELLTAB38 PO (17:12)
[2021-06-21] MEDS ORDERED: HYDR50TA70 PO (17:12)
[2021-06-21] MEDS ORDERED: TRAZ-252 PO (17:12)
--- NOTE | 2021-06-21 23:25 | DS.PDOC ---
Discharge Summary General Date of Admission Jun 19, 2021 at 22:37 Date of Discharge Jun 21, 2021 Specialist/Consultants [facility] Psychiatry, Dr. Flores Discharge Summary PROCEDURES PERFORMED DURING STAY: None ADMITTING DIAGNOSES: 1. Suicide attempt by overdose 2. Anxiety and depression DISCHARGE DIAGNOSES: 1. Suicide attempt by overdose 2. Anxiety and depression COMPLICATIONS/CHIEF COMPLAINT: Overdose. HISTORY OF PRESENT ILLNESS: Copied from admitting attending's H&P " Patient is 31 years old female with past medical history of depression, anxiety presented to hospital after Wellbutrin overdose. Patient stated that she was upset yesterday because her mom 1 year ago and she still grieving. Patient reported that because of anxiety and depression she decided to take some extra pills of Wellbutrin, she told me around 4 pills, but denied any suicidal ideation when I asked. In ER patient was found to have low blood pressure 97/60, no leukocytosis. EKG did not show any acute ischemic changes or QTC prolongation. Patient denied fever, chills, chest pain, palpitations diarrhea or dysuria. ER physician contacted poison control, they recommended observation for 24 hours in the hospital settings " HOSPITAL COURSE: Patient had been given 3L of fluid and blood pressure improved. Patient had 3 EKGs with qTC of 446, 448, and 445. This morning, patient felt we ll. Denied chest pain or dyspnea. She told me she did not realize that the bupropion was not an as needed medication. She thought she could take extra for increased anxiety. I relayed in the information to the psychiatrist. I spoke with the patient again and obtained consent for the psychiatrist to contact patient's friend. Patient friend said that patient was suicidal. Psychiatrist noted that patient's story is inconsistent. Patient will need to go to [facility]. Patient was discharged to [facility] today. DISCHARGE MEDICATIONS: Please see below. ALLERGIES: Please see below. PHYSICAL EXAMINATION ON DISCHARGE: VITAL SIGNS: Please see below. GENERAL: Comfortable, in no apparent distress. HEENT: Head normocephalic/atraumatic, EOMI, sclera clear. NECK: Supple. RESPIRATORY: Lungs clear to auscultation bilaterally, no rales, wheeze or rhonchi. CARDIOVASCULAR: Regular rate and rhythm. ABDOMEN: Soft, nontender, no guarding or rebound tenderness. Normal bowel sounds. MUSCLE SKELETAL: Muscle strength 5/5 in all extremities. NEUROLOGICAL: CN 312 grossly intact, no focal deficits noted. PSYCHOLOGICAL: Normal mood and affect LABORATORY DATA: Please see below. IMAGING: None PROGNOSIS: Good ACTIVITY: As tolerated. DIET: As tolerated. DISCHARGE PLAN: Patient is to be discharged to the [facility] for management of suicide attempt/anxiety/depression DISPOSITION: [facility]. DISCHARGE INSTRUCTIONS: 1. Follow up with psychiatry at [facility] 2. Follow up with PCP within 1 week of discharge from [facility] DISCHARGE CONDITION: Stable Total time spent on discharge planning, discharge summary, and medication reconciliation: 35 minutes Vital Signs/I&Os Vital Signs Date Time Temp Pulse Resp B/P (MAP) Pulse Ox O2 Delivery O2 Flow Rate FiO2 06/21/21 14:00 98.4 75 17 122/86 (98) 96 Room Air I&O- Last 24 Hours up to 6 AM 06/21/21 06:00 Intake Total 2731 ml Balance 2731 ml Laboratory Data Labs 24H Laboratory Tests 2 06/21/21 05:35: Anion Gap 7L, Glomerular Filtration Rate > 60.0, Calcium Level 8.5, Magnesium Level 2.0, Total Bilirubin 0.2, Aspartate Amino Transf (AST/SGOT) 33, Alanine Aminotransferase (ALT/SGPT) 46, Alkaline Phosphatase 89, Total Protein 6.3#L, Albumin 3.2#, Albumin/Globulin Ratio 1.0L 06/21/21 05:36: Nucleated Red Blood Cells % (auto) 0.0 CBC/BMP Laboratory Tests 06/21/21 05:35 06/21/21 05:36 Discharge Medications Scheduled Paroxetine HCl (Paroxetine) 20 Mg Tablet, 20 MG PO DAILY, (Reported) Scheduled PRN Hydroxyzine HCl (Hydroxyzine HCl) 50 Mg Tablet, 50 MG PO DAILYPRN PRN for ANXIETY Trazodone HCl (Trazodone HCl) 50 Mg Tablet, 50 MG PO QHSP PRN for SLEEP Allergies Coded Allergies: No Known Allergies (Unverified , 10/09/18) SHELLIE POLANCO DO Jun 21, 2021 23:25
== END 2021-06-21 21:05 ==
LOC: M ED 22:36 → M ED INP 22:37 → M MSPAV 06-20 17:49
PROVIDERS: ADMIT Internal Medicine; ATTEND Internal Medicine
DX: T43.292A Poisoning by other antidepressants, intentional self-harm, initial encounter (principal); T14.91XA Suicide attempt, initial encounter; Y92.098 Other place in other non-institutional residence as the place of occurrence of the external cause; F32.9 Major depressive disorder, single episode, unspecified; F41.9 Anxiety disorder, unspecified; Z79.899 Other long term (current) drug therapy
CPT/HCPCS: 36415; 80048; 80053; 80076; 80143; 80307; 82077; 83735; 84443; 85027; 87631; 93005; 96361; 96372; 96374; 96375; 99285; J1644; J2060; J2405; J3411

== ENCOUNTER 2021-06-21 15:41 | Inpatient (IN) | payer BC, OTHER ==
[~2021-06-21] VITALS: Ht 157.5 cm; Wt 79.1 kg
[~2021-06-21 15:41] MED LIST changes: -CEFD1CAP8 PO; +CEFD300C41 PO; +MED NOTE; +PARO20TA4 PO
[2021-06-21] MEDS ORDERED: NICOTINE 21MG/24HR 1 EA TRANSDERMAL TD PRN (16:40)
[2021-06-21] MEDS ORDERED: traZODone 50 MG TAB PO PRN (16:40)
[2021-06-21] MEDS ORDERED: MOM 30ML SUSPENSION UDC PO PRN (16:40)
[2021-06-21] MEDS ORDERED: MAALOX 30 ML SUSP *UDC PO PRN (16:40)
[2021-06-21] MEDS ORDERED: TRAZ-252 PO (17:12)
[2021-06-21] MEDS ORDERED: HYDR50TA70 PO (17:12)
[2021-06-21] MEDS ORDERED: WELLTAB38 PO (17:12)
[2021-06-21 21:10] VITALS: BP 132/87
[2021-06-21] MEDS: ACETAMINOPHEN TAB 650MG DOSE (2X325MG) PO PRN (22:26)
[2021-06-22 06:36] VITALS: BP 99/54
[2021-06-22] MEDS: PARoxetine 20MG TABLET PO SCH (10:00)
[2021-06-22 16:30] VITALS: BP 108/66
[2021-06-22] MEDS: ACETAMINOPHEN TAB 650MG DOSE (2X325MG) PO PRN (20:25)
[2021-06-23 06:14] VITALS: BP 109/68
[2021-06-23] MEDS: PARoxetine 20MG TABLET PO SCH (09:43)
[2021-06-23 18:00] VITALS: BP 116/60
[2021-06-24 06:26] VITALS: BP 96/52
[2021-06-24] MEDS ORDERED: NICO21PAT TD (08:17)
[2021-06-24] MEDS: PARoxetine 20MG TABLET PO SCH (08:24)
== END 2021-06-24 09:57 | disposition home or self-care (01) | DRG 754 ==
LOC: M PSY 21:09
PROVIDERS: ADMIT Psychiatry & Neurology Psychiatry; ATTEND Psychiatry & Neurology Psychiatry
DX: F32.9 Major depressive disorder, single episode, unspecified (principal); R45.851 Suicidal ideations; F10.10 Alcohol abuse, uncomplicated; F41.9 Anxiety disorder, unspecified; F15.90 Other stimulant use, unspecified, uncomplicated

== ENCOUNTER → 2022-11-08 | Outpatient (CLI) | payer BC ==
[~2022-11-08] MED LIST changes: +HYDR50TA70 PO; -MICR1TAB18 PO; +NICO21PAT TD; +NORE1TAB94 PO; -PAXI10TA12 PO; +PAXI10TA13 PO; +TRAZ-252 PO; +WELLTAB38 PO
[2022-11-08 15:55] LABS: BASO % 0.4 % (0.0-1.0); EOS # 0.1 10^3/uL (0.0-0.5); EOS % 0.9 % (0.0-3.0); HEMATOCRIT 40.5 % (36.0-47.0); HEMOGLOBIN 13.5 g/dl (12.0-15.5); LYMPH # 2.6 10^3/uL (1.5-5.0); LYMPH % 34.8 % (24.0-44.0); MEAN CORPUSCULAR HEMOGLOBIN 29.8 pg (27.0-33.0); MEAN CORPUSCULAR HGB CONC 33.3 g/dl (32.0-36.5); MEAN CORPUSCULAR VOLUME 89.4 fl (80.0-96.0); MONO # 0.4 10^3/uL (0.0-0.8); MONO % 5.7 % (2.0-8.0); NEUTROPHILS # 4.4 10^3/uL (1.5-8.5); NEUTROPHILS % 57.7 % (36.0-66.0); PLATELET COUNT, AUTOMATED 151 10^3/uL (150-450); RED BLOOD COUNT 4.53 10^6/uL (4.00-5.40); WHITE BLOOD COUNT 7.6 10^3/uL (4.0-10.0)
[2022-11-08 16:23] LABS: LIPASE 35 U/L (12-53)
[2022-11-08 16:25] LABS: ALBUMIN 4.2 G/DL (3.2-5.2); ALKALINE PHOSPHATASE 96 U/L (46-116); ALT/SGPT 28 U/L (7.0-40); AMYLASE 49 U/L (30-118); AST/SGOT 20 U/L (<34); BILIRUBIN,TOTAL 0.7 MG/DL (0.3-1.2); BLOOD UREA NITROGEN 9 MG/DL (9-23); CALCIUM LEVEL 9.5 MG/DL (8.5-10.1); CARBON DIOXIDE LEVEL 28 MMOL/L (20-31); CHLORIDE LEVEL 104 MMOL/L (98-107); CREATININE FOR GFR 0.85 MG/DL (0.55-1.30); GLOMERULAR FILTRATION RATE > 60.0 (>60); GLUCOSE, FASTING 73 MG/DL (60-100); POTASSIUM SERUM 4.3 MMOL/L (3.5-5.1); SODIUM LEVEL 139 MMOL/L (136-145)
== END ==
LOC: M PLALAB 12:45
PROVIDERS: ATTEND Physician Assistant
DX: R10.13 Epigastric pain (principal)

== ENCOUNTER 2023-03-12 02:07 | Emergency (ER) | payer BC ==
[~2023-03-12] VITALS: Ht 157.5 cm; Wt 68.2 kg
[~2023-03-12 02:07] MED LIST changes: +NORE1TAB7 PO; +OMEP-173 PO
[2023-03-12 02:15] VITALS: BP 134/84; TEMP 99.4; O2SAT 99
== END 2023-03-12 06:16 | disposition left against medical advice (07) ==
LOC: M ED 02:07
DX: Z53.21 Procedure and treatment not carried out due to patient leaving prior to being seen by health care provider (principal)

== ENCOUNTER → 2023-05-02 | Outpatient (REF) | payer BC ==
[~2023-05-02] MED LIST changes: -CEFD300C41 PO; +CEFD300C42 PO
== END ==
LOC: M SFHCWAGY 17:31
PROVIDERS: ATTEND Advanced Practice Midwife
DX: R87.810 Cervical 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 (HPV) DNA 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 (principal); R87.612 Low grade squamous intraepithelial lesion on cytologic smear of cervix (LGSIL); D26.0 Other benign neoplasm of cervix uteri

== ENCOUNTER → 2023-05-16 | Outpatient (REF) | payer BC | LOC: M SFHCADAM 12:39 | PROVIDERS: ATTEND Physician Assistant Medical | DX: J02.9 Acute pharyngitis, unspecified (principal) ==

== ENCOUNTER → 2024-05-14 | Outpatient (REF) | payer OTHER ==
[~2024-05-14] MED LIST changes: +CEFD1CAP9 PO; -CEFD300C42 PO; +ONDA-282 PO; -ONDA4TAB6 PO
[2024-05-19 16:42] LABS: HPV APTIMA Detected (Not Detected)
== END ==
LOC: M SFHCWAGY 09:49
PROVIDERS: ATTEND Nurse Practitioner Family
DX: Z12.4 Encounter for screening for malignant neoplasm of cervix (principal); R87.610 Atypical squamous cells of undetermined significance on cytologic smear of cervix (ASC-US)

== ENCOUNTER → 2024-05-14 | Outpatient (REF) | payer OTHER ==
[2024-05-14 18:23] LABS: ALBUMIN 3.9 G/DL (3.2-5.2); ALKALINE PHOSPHATASE 75 U/L (35-104); ALT/SGPT 21 U/L (7.0-40); AST/SGOT 16 U/L (<34); BILIRUBIN,TOTAL 0.4 MG/DL (0.3-1.2); BLOOD UREA NITROGEN 9 MG/DL (9-23); CARBON DIOXIDE LEVEL 26 MMOL/L (20-31); CHLORIDE LEVEL 106 MMOL/L (98-107); CHOLESTEROL LEVEL 160 MG/DL (<200); CHOLESTEROL RISK RATIO 2.67 (<5); CREATININE FOR GFR 0.86 MG/DL (0.55-1.30); GLOMERULAR FILTRATION RATE > 60.0 (>60); GLUCOSE, FASTING 93 MG/DL (60-100); HDL CHOLESTEROL 59.8 MG/DL (>40); LDL CHOLESTEROL 81.6 MG/DL (<100); NON-HDL-C 100.2 MG/DL; POTASSIUM SERUM 3.8 MMOL/L (3.5-5.1); SODIUM LEVEL 140 MMOL/L (136-145); THYROID STIMULATING HORMONE 0.943 uIU/ML (0.55-4.78); TOTAL PROTEIN 7.3 G/DL (5.7-8.2); TRIGLYCERIDES LEVEL 93 MG/DL (<150)
[2024-05-14 18:29] LABS: HEMOGLOBIN A1c 4.9 % (4.0-6.0)
== END ==
LOC: M SFHCADAM 14:25
PROVIDERS: ATTEND Physician Assistant
DX: F41.1 Generalized anxiety disorder (principal); R63.5 Abnormal weight gain; Z13.220 Encounter for screening for lipoid disorders; Z13.1 Encounter for screening for diabetes mellitus

== ENCOUNTER → 2024-09-25 | Outpatient (REF) | payer OTHER | LOC: M PLALAB 13:40 | PROVIDERS: ATTEND Advanced Practice Midwife | DX: R87.610 Atypical squamous cells of undetermined significance on cytologic smear of cervix (ASC-US) (principal); R87.810 Cervical 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 (HPV) DNA 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 ==

== ENCOUNTER → 2024-10-16 | Outpatient (CLI) | payer OTHER | LOC: M WUC 13:23 | PROVIDERS: ATTEND Student in an Organized Health Care Education/Training Program | DX: M79.641 Pain in right hand (principal) ==